=== PATIENT | male | born 1975 | race Caucasian/White ===

== ENCOUNTER 2021-02-24 02:17 | Inpatient (IN) | payer BC ==
[~2021-02-24] VITALS: Ht 188 cm; Wt 163.0 kg
[2021-02-24 02:56] LABS: Hemoglobin 16.4 g/dL (13.5-17.5); Mean Corpuscular Hemoglobin 34.9 pg (28.0-32.0); Mean Corpuscular Hgb Conc. 34.8 g/dL (32.0-36.0); Monocytes # (auto) 1.1 10 ^3/uL (0-1.3); Monocytes % (auto) 16.2 % (0.0-12.0); Nucleated Red Blood Cells % 0.1 %
[2021-02-24 02:58] LABS: Basophils # (auto) 0 10 ^3/uL (0-0.2); Basophils % (auto) 0.5 % (0.0-2.0); Eosinophils # (auto) 0 10 ^3/uL (0-0.8); Eosinophils % (auto) 0.7 % (0.0-7.0); Hematocrit 47.1 % (41.0-53.0); Lymphocytes # (auto) 1.5 10 ^3/uL (0.4-5.4); Lymphocytes % (auto) 21.7 % (10.0-50.0); Mean Corpuscular Volume 100.2 fL (80.0-100.0); Neutrophils # (auto) 4.2 10 ^3/uL (1.6-8.6); Neutrophils % (auto) 60.9 % (37.0-80.0); Platelet Count (auto) 65 10^3/uL (140-450); Red Cell Distribution Width 16.4 % (11.8-14.3); White Blood Cell 6.9 10^3/uL (4.4-10.8)
[2021-02-24 03:11] LABS: INR 1.57 (0.9-1.15); Partial Thromboplastin Time 34.2 sec (23.0-31.2)
[2021-02-24 03:17] LABS: Albumin 2.4 g/dL (3.4-5.0); Magnesium 1.4 mg/dL (1.6-2.6); Potassium 3.2 mmol/L (3.5-5.1)
[2021-02-24 03:20] LABS: Bilirubin, Total 11.4 mg/dL (0.2-1.0); Total Protein 7.3 g/dL (6.4-8.2)
[2021-02-24] MEDS ORDERED: OCTREOTIDE ACETATE 100 MCG in SODIUM CHL 0.9% 50 ML IV ONE (03:30)
[2021-02-24] MEDS ORDERED: SODIUM CHLORIDE 0.9% 1,000 ML IV ONE ×3 (04:00→05:30)
[2021-02-24] MEDS ORDERED: POTASSIUM CHL 20MEQ/100ML 100 ML IV ONE ×2 (04:00→05:30)
[2021-02-24] MEDS ORDERED: MORPHINE SULF INJ 2 MG/ML SYRINGE 1ML IV ONE (04:00)
[2021-02-24] MEDS ORDERED: ONDANSETRON HCL 4 MG/2 ML VIAL IV ONE (04:00)
[2021-02-24] MEDS ORDERED: SODIUM CHLORIDE 0.9% 500 ML IV ONE (04:00)
[2021-02-24 04:02] LABS: Lipase 117 U/L (73-393)
[2021-02-24] MEDS ORDERED: OCTREOTIDE ACETATE 500 MCG/ML VL ONE (04:32)
[2021-02-24] MEDS ORDERED: OCTREOTIDE ACETATE 100 MCG/ML VL ONE (04:32)
[2021-02-24 04:44] LABS: Lactic Acid w/Reflex 3.2 mmol/L (0.4-2.0)
[2021-02-24] MEDS ORDERED: VANCOMYCIN PER PHARMACY 0 MG IV SCH (05:15)
[2021-02-24] MEDS ORDERED: PIPERACILLIN-TAZOB 3.375GM 100 ML IV ONE (05:15)
[2021-02-24] MEDS: OCTREOTIDE ACETATE 500 MCG in SODIUM CHL 0.9% 99 ML IV SCH ×3 (05:29→23:42)
[2021-02-24] MEDS ORDERED: PANTOPRAZOLE 40mg/50ML NS AE 50 ML IV SCH (06:30)
[2021-02-24] MEDS ORDERED: MORPHINE SULF INJ 2 MG/ML SYRINGE 1ML IV PRN (06:30)
[2021-02-24] MEDS ORDERED: SODIUM CHLORIDE 0.9% 1,000 ML IV SCH (06:30)
[2021-02-24] MEDS ORDERED: NITROGLYCERIN 0.4 MG SL TAB SL PRN (06:30)
[2021-02-24] MEDS ORDERED: ONDANSETRON HCL 4 MG/2 ML VIAL IV PRN (06:30)
[2021-02-24 07:00] LABS: Hemoglobin 15.9 g/dL (13.5-17.5)
[2021-02-24 07:01] LABS: Hematocrit 45.8 % (41.0-53.0)
[2021-02-24] MEDS ORDERED: VANCOMYCIN 1GM/250ML 250 ML IV ONE (08:00)
[2021-02-24] MEDS: MAGNESIUM SULFATE 1GM/100ML 100 ML IV SCH ×4 (08:42→18:42)
[2021-02-24] MEDS: SODIUM CHLORIDE 0.9% 1,000 ML IV SCH ×3 (08:42→20:40)
[2021-02-24 11:14] VITALS: BP 122/67
[2021-02-24] MEDS ORDERED: FOLIC ACID 1 MG, MULTIPLE VITAMIN 10 ML, MAGNESIUM SULF SDV 50% 8 MEQ, THIAMINE INJ 100... INJ SCH ×5 (12:00)
[2021-02-24 12:36] LABS: Magnesium 1.4 mg/dL (1.6-2.6)
[2021-02-24 12:47] VITALS: BP 119/70
[2021-02-24] MEDS ORDERED: HYDR25TA5 PO (13:51)
[2021-02-24] MEDS: GABAPENTIN 300 MG CAP PO SCH ×2 (15:43→21:52)
[2021-02-24 17:00] VITALS: BP 140/81
[2021-02-24 18:04] VITALS: BP 140/81
[2021-02-24 20:00] VITALS: BP 127/71
[2021-02-24] MEDS ORDERED: ALBUTEROL SULF HFA 90MCG INH 200DOSE IN PRN (21:15)
[2021-02-24] MEDS ORDERED: ALBUTEROL SULF 2.5 MG/0.5ML(0.5%) NEB SOLN NEB PRN (21:30)
[2021-02-24] MEDS: PANTOPRAZOLE 40 MG/10 ML VIAL INJ IV SCH (21:52)
[2021-02-24] MEDS: ASCORBIC ACID 500 MG TAB PO SCH (21:52)
[2021-02-24 22:00] VITALS: BP 127/71
[2021-02-24] MEDS ORDERED: ALBUTEROL SULF HFA 90MCG INH 200DOSE IN SCH (22:00)
[2021-02-25 05:04] VITALS: BP 105/64
[2021-02-25] MEDS: GABAPENTIN 300 MG CAP PO SCH ×2 (06:00→14:15)
[2021-02-25 07:14] LABS: Calcium 7.1 mg/dL (8.5-10.1); Potassium 3.7 mmol/L (3.5-5.1)
[2021-02-25 07:21] LABS: BUN/Creatinine Ratio 15.6; Bilirubin, Total 10.7 mg/dL (0.2-1.0); Total Protein 5.6 g/dL (6.4-8.2)
[2021-02-25 07:45] VITALS: BP 105/67
[2021-02-25 07:48] LABS: Basophils # (auto) 0 10 ^3/uL (0-0.2); Eosinophils # (auto) 0.1 10 ^3/uL (0-0.8); Hemoglobin 13.5 g/dL (13.5-17.5); Lymphocytes # (auto) 1.6 10 ^3/uL (0.4-5.4); Monocytes # (auto) 0.7 10 ^3/uL (0-1.3); Neutrophils # (auto) 2.3 10 ^3/uL (1.6-8.6); White Blood Cell 4.8 10^3/uL (4.4-10.8)
[2021-02-25 07:50] LABS: Basophils % (auto) 0.9 % (0.0-2.0); Eosinophils % (auto) 2.1 % (0.0-7.0); Hematocrit 39.1 % (41.0-53.0); Lymphocytes % (auto) 33.8 % (10.0-50.0); Mean Corpuscular Hemoglobin 35.2 pg (28.0-32.0); Mean Corpuscular Hgb Conc. 34.6 g/dL (32.0-36.0); Mean Corpuscular Volume 101.8 fL (80.0-100.0); Monocytes % (auto) 14.9 % (0.0-12.0); Neutrophils % (auto) 48.3 % (37.0-80.0); Nucleated Red Blood Cells % 0.5 %; Platelet Count (auto) 44 10^3/uL (140-450); Red Blood Cells 3.85 10^6/uL (4.5-5.90); Red Cell Distribution Width 16.9 % (11.8-14.3)
[2021-02-25] MEDS ORDERED: LIDOCAINE VISCOUS 2% 15ML UD ONE (08:28)
[2021-02-25] MEDS ORDERED: diphenhdrAMINE HCL 50 MG/1 ML VL ONE (08:29)
[2021-02-25] MEDS: ASCORBIC ACID 500 MG TAB PO SCH (08:57)
[2021-02-25] MEDS: PANTOPRAZOLE 40 MG/10 ML VIAL INJ IV SCH (08:57)
[2021-02-25] MEDS: OCTREOTIDE ACETATE 500 MCG in SODIUM CHL 0.9% 99 ML IV SCH (08:57)
[2021-02-25 09:00] VITALS: BP 105/67
[2021-02-25] MEDS: SODIUM CHLORIDE 0.9% 1,000 ML IV SCH (09:05)
[2021-02-25] MEDS: fentaNYL CITRATE 100 MCG/2 ML VL ONE ×2 (09:35→09:38)
[2021-02-25] MEDS: MIDAZOLAM HCL 5 MG/ML-1ML VIAL ONE ×2 (09:35→09:38)
[2021-02-25] MEDS ORDERED: THIAMINE HCL 100 MG TAB PO SCH (10:00)
[2021-02-25] MEDS ORDERED: ZINC SULFATE 220mg CAP or TAB PO SCH (10:00)
[2021-02-25] MEDS ORDERED: PANTOPRAZOLE 40 MG TAB PO SCH (10:00)
[2021-02-25] MEDS ORDERED: CHOLECALCIFEROL (VITD3) 2,000 UNIT CAP/TAB PO SCH (10:00)
[2021-02-25] MEDS ORDERED: FOLIC ACID 1 MG TAB PO SCH (10:00)
[2021-02-25 13:00] VITALS: BP 100/60
[2021-02-25] MEDS ORDERED: THIA100T10 PO (16:34)
[2021-02-25] MEDS ORDERED: CHOL1CAP47 PO (16:34)
[2021-02-25] MEDS ORDERED: PANT40T PO (16:34)
[2021-02-25] MEDS ORDERED: FOLI1TAB6 PO (16:34)
[2021-02-25] MEDS ORDERED: ZINC220C8 PO (16:34)
[2021-02-25] MEDS ORDERED: ASCO500T11 PO (16:34)
[2021-02-25] MEDS ORDERED: GABA300C10 PO (16:34)
[2021-02-25] MEDS ORDERED: POTA10TA32 PO (16:35)
[2021-02-25 16:44] VITALS: BP 119/71
[2021-02-25 17:02] VITALS: BP 119/71
== END 2021-02-25 18:20 | disposition home or self-care (01) | DRG 432 ==
LOC: ER 02:21 → TELE 06:20 → TELE-WESTW 09:51 → TELE-EAST 14:05
PROVIDERS: ADMIT Nurse Practitioner; ATTEND Internal Medicine
PROC: 0DJ08ZZ Inspection of Upper Intestinal Tract, Via Natural or Artificial Opening Endoscopic (ICD-10-PCS; principal; 2021-02-25 09:26)
DX: K70.30 Alcoholic cirrhosis of liver without ascites (principal); K29.71 Gastritis, unspecified, with bleeding; U07.1 COVID-19; J12.82 Pneumonia due to coronavirus disease 2019; I85.11 Secondary esophageal varices with bleeding; K20.91 Esophagitis, unspecified with bleeding; D68.9 Coagulation defect, unspecified; E87.1 Hypo-osmolality and hyponatremia; K76.6 Portal hypertension; Z68.41 Body mass index [BMI] 40.0-44.9, adult; E66.01 Morbid (severe) obesity due to excess calories; K31.89 Other diseases of stomach and duodenum; E83.42 Hypomagnesemia; E87.6 Hypokalemia; I10 Essential (primary) hypertension; F10.10 Alcohol abuse, uncomplicated; Z71.41 Alcohol abuse counseling and surveillance of alcoholic
CPT/HCPCS: 36415; 74176; 80053; 80320; 83605; 83690; 83735; 83880; 84132; 84484; 85014; 85018; 85025; 85610; 85730; 86850; 86900; 86901; 87426; 93005; 96365; 96367; 96375; 99291; C9113; G0378; J2250; J2405; J2543; J3480

== ENCOUNTER 2021-03-14 10:16 | Inpatient (IN) | payer BC ==
[~2021-03-14] VITALS: Ht 188 cm; Wt 165.5 kg
[~2021-03-14 10:16] MED LIST: ASCO500T11 PO; CHOL1CAP47 PO; FOLI1TAB6 PO; GABA300C10 PO; HYDR25TA5 PO; PANT40T PO; POTA10TA32 PO; THIA100T10 PO; ZINC220C8 PO
[2021-03-14 11:21] LABS: Eosinophils # (auto) 0 10 ^3/uL (0-0.8); Lymphocytes # (auto) 0.3 10 ^3/uL (0.4-5.4); Monocytes # (auto) 0.7 10 ^3/uL (0-1.3); Neutrophils # (auto) 6.1 10 ^3/uL (1.6-8.6); Neutrophils % (auto) 84.4 % (37.0-80.0); Nucleated Red Blood Cells % 0.1 %; White Blood Cell 7.2 10^3/uL (4.4-10.8)
[2021-03-14 11:23] LABS: Basophils # (auto) 0 10 ^3/uL (0-0.2); Basophils % (auto) 0.4 % (0.0-2.0); Eosinophils % (auto) 0.3 % (0.0-7.0); Hematocrit 40.8 % (41.0-53.0); Hemoglobin 14.1 g/dL (13.5-17.5); Lymphocytes % (auto) 4.8 % (10.0-50.0); Mean Corpuscular Hemoglobin 34.4 pg (28.0-32.0); Mean Corpuscular Hgb Conc. 34.6 g/dL (32.0-36.0); Mean Corpuscular Volume 99.3 fL (80.0-100.0); Monocytes % (auto) 10.1 % (0.0-12.0); Red Blood Cells 4.11 10^6/uL (4.5-5.90); Red Cell Distribution Width 15.9 % (11.8-14.3)
[2021-03-14 11:49] LABS: Lactic Acid w/Reflex 2.9 mmol/L (0.4-2.0)
[2021-03-14 12:00] LABS: Chloride 104 mmol/L (98-107); Potassium 3.5 mmol/L (3.5-5.1); Sodium 138 mmol/L (136-145)
[2021-03-14 12:08] LABS: Alanine Aminotransferase 45 U/L (16-61); Alkaline Phosphatase 144 U/L (45-117); Anion Gap 7 (5-15); Aspartate Aminotransferase 52 U/L (15-37); BUN/Creatinine Ratio 11.5; Bilirubin, Total 6.7 mg/dL (0.2-1.0); Blood Alcohol < 3.0 mg/dL (0-5); Blood Urea Nitrogen 10 mg/dL (7-18); Calcium 7.8 mg/dL (8.5-10.1); Carbon Dioxide 27 mmol/L (21-32); GFR African American 123 mL/min; GFR Non-African American 101 mL/min; Glucose 277 mg/dL (74-106); Total Protein 6.1 g/dL (6.4-8.2)
[2021-03-14] MEDS ORDERED: MORPHINE SULFATE INJECTION 2 MG/ML SYRG IV PRN ×3 (14:30→17:45)
[2021-03-14] MEDS ORDERED: NITROGLYCERIN 0.4 MG SL TAB SL PRN ×2 (14:30→17:45)
[2021-03-14] MEDS ORDERED: LACTULOSE 20Gm/30ML SOLN PO ONE (16:00)
[2021-03-14 17:15] VITALS: BP 112/61
[2021-03-14] MEDS ORDERED: ALBUMIN 25% 100 ML IV ONE (17:45)
[2021-03-14] MEDS ORDERED: PANTOPRAZOLE 40 MG/10 ML VIAL INJ IV ONE (17:45)
[2021-03-14] MEDS ORDERED: ONDANSETRON HCL 4 MG/2 ML VIAL IV PRN (17:45)
[2021-03-14] MEDS ORDERED: ALUM & MAG HYDROX-SIMETH LIQ(MAALOX) 30 ML PO PRN (17:45)
[2021-03-14] MEDS ORDERED: cefTRIAXone 1GM/50ML D5W 50 ML IV ONE (17:45)
[2021-03-14] MEDS ORDERED: DOCUSATE SOD 100 MG CAP PO PRN (17:45)
[2021-03-14] MEDS ORDERED: LACTULOSE 20Gm/30ML SOLN PO PRN (17:45)
[2021-03-14] MEDS ORDERED: LORazepam 0.5 MG TAB PO PRN (17:45)
[2021-03-14] MEDS: LACTULOSE 20Gm/30ML SOLN PO SCH ×2 (18:23→22:58)
[2021-03-14] MEDS ORDERED: hydrALAZINE HCL 20 MG/ML VL IV PRN (18:30)
[2021-03-14] MEDS ORDERED: DEXTROSE (50%) 50ML SYRG IV PRN (18:30)
[2021-03-14] MEDS: ALBUMIN 25% 50 ML IV SCH (18:52)
[2021-03-14] MEDS ORDERED: CHOL20007 OR (19:12)
[2021-03-14 19:29] LABS: Alcohol, Urine < 3.0 mg/dL (0-10); Amphetamine Screen, Urine NEGATIVE (NEGATIVE); Barbiturate Scree,Urine NEGATIVE (NEGATIVE); Benzodiazephine Screen, Urine NEGATIVE (NEGATIVE); Cannabinoid Screen, Urine POSITIVE (NEGATIVE); Cocaine Screen, Urine NEGATIVE (NEGATIVE); Phencyclidine Screen, Urine NEGATIVE (NEGATIVE)
[2021-03-14 19:38] LABS: Opiate Scree,Urine NEGATIVE (NEGATIVE)
[2021-03-14 19:41] LABS: Urine Bacteria FEW /hpf (None Seen); Urine Blood Negative /uL (Negative); Urine Hyaline Cast MANY /lpf (0 - 2); Urine Mucus MODERATE (None Seen); Urine Specific Gravity 1.029 (1.001-1.035); Urine WBC 55 /hpf (0 - 3)
[2021-03-14 20:18] LABS: Cholesterol 143 mg/dL (< 200)
[2021-03-14 20:22] LABS: HDL Cholesterol 20 mg/dL (40-59); LDL Cholesterol 112 mg/dL (< 100); Triglycerides 102 mg/dL (< 150)
[2021-03-14 22:00] VITALS: BP 124/70
[2021-03-14] MEDS: SODIUM CHLOR 0.9% PF (SALINE LOCK) 10ML VIAL/SYR IV SCH (22:00)
[2021-03-14] MEDS: ACCU-CHEK COMFORT CURVE STRIP VI SCH (22:00)
[2021-03-14] MEDS ORDERED: InsuLIN REG 1unit/0.01ml Soln (100units/ml) SC SCH (22:00)
[2021-03-14] MEDS: rifAXIMin 550 MG TAB PO SCH (22:58)
[2021-03-14] MEDS: PROPRANOLOL HCL 20 MG TAB PO SCH (22:59)
[2021-03-15] MEDS: LACTULOSE 20Gm/30ML SOLN PO SCH ×4 (01:46→14:06)
[2021-03-15] MEDS: ALBUMIN 25% 50 ML IV SCH ×2 (01:47→10:33)
[2021-03-15 05:29] VITALS: BP 99/50
[2021-03-15] MEDS: SODIUM CHLOR 0.9% PF (SALINE LOCK) 10ML VIAL/SYR IV SCH ×2 (05:35→14:06)
[2021-03-15] MEDS: ACCU-CHEK COMFORT CURVE STRIP VI SCH ×3 (06:35→17:00)
[2021-03-15] MEDS: InsuLIN REG 1unit/0.01ml Soln (100units/ml) SC SCH ×3 (06:35→17:00)
[2021-03-15 07:05] LABS: Basophils # (auto) 0 10 ^3/uL (0-0.2); Hemoglobin 12.7 g/dL (13.5-17.5); Monocytes # (auto) 0.6 10 ^3/uL (0-1.3); Monocytes % (auto) 9.5 % (0.0-12.0); Nucleated Red Blood Cells % 0.1 %
[2021-03-15 07:09] LABS: Basophils % (auto) 0.5 % (0.0-2.0); Eosinophils # (auto) 0.1 10 ^3/uL (0-0.8); Eosinophils % (auto) 2.2 % (0.0-7.0); Hematocrit 36.2 % (41.0-53.0); Lymphocytes # (auto) 1.7 10 ^3/uL (0.4-5.4); Lymphocytes % (auto) 26.3 % (10.0-50.0); Mean Corpuscular Hemoglobin 34.9 pg (28.0-32.0); Mean Corpuscular Hgb Conc. 35.2 g/dL (32.0-36.0); Mean Corpuscular Volume 99.2 fL (80.0-100.0); Neutrophils % (auto) 61.5 % (37.0-80.0); Red Blood Cells 3.64 10^6/uL (4.5-5.90); Red Cell Distribution Width 15.6 % (11.8-14.3); White Blood Cell 6.5 10^3/uL (4.4-10.8)
[2021-03-15 07:15] LABS: INR 1.81 (0.9-1.15); Partial Thromboplastin Time 42.1 sec (23.0-31.2)
[2021-03-15 07:25] LABS: Calcium 7.9 mg/dL (8.5-10.1); Magnesium 2.1 mg/dL (1.6-2.6); Potassium 3.2 mmol/L (3.5-5.1)
[2021-03-15 07:28] LABS: BUN/Creatinine Ratio 14.5; Bilirubin, Total 7.4 mg/dL (0.2-1.0); Phosphorus 3.4 mg/dL (2.5-4.90); Total Protein 5.7 g/dL (6.4-8.2)
[2021-03-15 08:54] VITALS: BP 101/55
[2021-03-15] MEDS ORDERED: cefTRIAXone 1GM/50ML D5W 50 ML IV SCH (09:00)
[2021-03-15] MEDS: rifAXIMin 550 MG TAB PO SCH (09:43)
[2021-03-15] MEDS: PROPRANOLOL HCL 20 MG TAB PO SCH (09:43)
[2021-03-15] MEDS ORDERED: PANTOPRAZOLE 40 MG/10 ML VIAL INJ IV SCH (10:00)
[2021-03-15 12:47] VITALS: BP 114/65
[2021-03-15] MEDS ORDERED: POTA10TA51 PO (14:18)
[2021-03-15] MEDS ORDERED: CIPR500T4 PO (14:18)
[2021-03-15] MEDS ORDERED: LACT10SO3 PO (14:18)
[2021-03-15] MEDS ORDERED: POTASSIUM CHL 20 Meq TABLET PO ONE (14:30)
[2021-03-15 16:03] VITALS: BP 114/65
[2021-03-15 17:00] VITALS: BP 112/70
== END 2021-03-15 17:46 | disposition home or self-care (01) | DRG 442 ==
LOC: EDBD 10:16 → ER 10:16 → TELE 14:17 → TELE-WESTW 17:20
PROVIDERS: ADMIT Hospitalist; ATTEND Hospitalist
DX: K72.90 Hepatic failure, unspecified without coma (principal); E66.2 Morbid (severe) obesity with alveolar hypoventilation; E87.1 Hypo-osmolality and hyponatremia; K76.6 Portal hypertension; N39.0 Urinary tract infection, site not specified; Z68.41 Body mass index [BMI] 40.0-44.9, adult; I85.00 Esophageal varices without bleeding; K70.30 Alcoholic cirrhosis of liver without ascites; Z20.822 Contact with and (suspected) exposure to COVID-19; E78.00 Pure hypercholesterolemia, unspecified; E83.42 Hypomagnesemia; E87.6 Hypokalemia; F10.10 Alcohol abuse, uncomplicated; G47.33 Obstructive sleep apnea (adult) (pediatric); I10 Essential (primary) hypertension; K21.00 Gastro-esophageal reflux disease with esophagitis, without bleeding; K29.70 Gastritis, unspecified, without bleeding; K31.89 Other diseases of stomach and duodenum; Z59.0 Homelessness; Z80.1 Family history of malignant neoplasm of trachea, bronchus and lung; Z83.3 Family history of diabetes mellitus; Z85.118 Personal history of other malignant neoplasm of bronchus and lung
CPT/HCPCS: 36415; 70450; 76700; 80053; 80061; 80307; 80320; 81001; 82140; 82306; 82962; 83036; 83605; 83735; 84100; 84443; 84484; 85025; 85610; 85730; 87040; 87081; 87086; 87426; 93005; 93306; 96365; 96375; C9113; G0378; J0696; J1815

== ENCOUNTER 2021-11-07 14:14 | Inpatient (IN) | payer BC ==
[~2021-11-07] VITALS: Ht 188 cm; Wt 168.3 kg
[~2021-11-07 14:14] MED LIST changes: +CHOL20007 OR; +CIPR500T4 PO; +LACT10SO3 PO; +POTA10TA51 PO
[2021-11-07 15:30] LABS: Mean Corpuscular Hemoglobin 37.2 pg (28.0-32.0)
[2021-11-07 15:32] LABS: Hematocrit 38.9 % (41.0-53.0); Hemoglobin 13.5 g/dL (13.5-17.5); Mean Corpuscular Hgb Conc. 34.7 g/dL (32.0-36.0); Mean Corpuscular Volume 107.2 fL (80.0-100.0); Red Blood Cells 3.63 10^6/uL (4.5-5.90); Red Cell Distribution Width 17.5 % (11.8-14.3)
[2021-11-07 15:46] LABS: Albumin 1.6 g/dL (3.4-5.0); Potassium 3.5 mmol/L (3.5-5.1)
[2021-11-07 15:51] LABS: BUN/Creatinine Ratio 8.9; Bilirubin, Total 15.5 mg/dL (0.2-1.0); Total Protein 6.8 g/dL (6.4-8.2)
[2021-11-07 16:08] LABS: Magnesium 1.5 mg/dL (1.6-2.6)
[2021-11-07 16:15] LABS: Basophils % (manual) 0 (0.0-2.0); Blast Cells 0; Eosinophils % (manual) 0 (0-7); Metamyelocytes % 0; Monocytes % (manual) 0 (0-12); Myelocytes % 0; Promyelocytes % 0; Reactive Lymphocytes 0
[2021-11-07 16:42] LABS: INR 2.01 (0.9-1.15); Partial Thromboplastin Time 37.9 sec (23.6-33.0)
[2021-11-07 18:47] LABS: Band Neutrophils % (manual) 4; Lymphocytes % (manual) 11 (10.0-50.0)
[2021-11-08] MEDS ORDERED: ONDANSETRON HCL 4 MG/2 ML VIAL IV PRN (02:45)
[2021-11-08] MEDS ORDERED: POTASSIUM CHL 20 Meq TABLET PO ONE (02:45)
[2021-11-08] MEDS ORDERED: FUROSEMIDE 40 MG/4 ML VIAL IV ONE (02:45)
[2021-11-08] MEDS: ALBUMIN 25% 50 ML IV SCH ×3 (04:29→18:07)
[2021-11-08 06:22] VITALS: BP 137/91
[2021-11-08] MEDS: MAGNESIUM SULFATE 1GM/100ML 100 ML IV SCH ×4 (06:48→13:30)
[2021-11-08 07:27] LABS: Urine Bacteria NONE SEEN /hpf (None Seen); Urine Blood 2+ /uL (Negative); Urine Mucus FEW (None Seen); Urine Specific Gravity 1.019 (1.001-1.035); Urine WBC 10 /hpf (0 - 3)
[2021-11-08 08:00] VITALS: BP 121/79
[2021-11-08 09:00] VITALS: BP 121/79
[2021-11-08] MEDS ORDERED: MAGNESIUM SULFATE 1GM/100ML 100 ML IV SCH (09:45)
[2021-11-08] MEDS: rifAXIMin 550 MG TAB PO SCH ×2 (09:47→21:56)
[2021-11-08] MEDS: LACTULOSE 20Gm/30ML SOLN PO SCH (09:47)
[2021-11-08] MEDS: HCTZ 25 MG TAB PO SCH ×2 (09:48→10:00)
[2021-11-08 12:17] VITALS: BP 141/66
[2021-11-08] MEDS ORDERED: phytonadione 10 MG in SODIUM CHL 0.9% 50 ML IV ONE (12:30)
[2021-11-08 17:05] VITALS: BP 120/62
[2021-11-08] MEDS: FUROSEMIDE 40 MG/4 ML VIAL IV SCH (17:25)
[2021-11-08] MEDS ORDERED: FUROSEMIDE 40 MG TAB PO SCH (18:00)
[2021-11-08 22:00] VITALS: BP 122/68
[2021-11-08] MEDS ORDERED: methylPREDNISolone SOD SUCC 40 MG/ML VL IV SCH (22:00)
[2021-11-09] MEDS: FUROSEMIDE 40 MG/4 ML VIAL IV SCH ×2 (06:25→17:33)
[2021-11-09 07:41] LABS: Hemoglobin 11.9 g/dL (13.5-17.5)
[2021-11-09 07:43] LABS: Hematocrit 34.3 % (41.0-53.0); Mean Corpuscular Hemoglobin 37.1 pg (28.0-32.0); Mean Corpuscular Hgb Conc. 34.7 g/dL (32.0-36.0); Red Cell Distribution Width 16.7 % (11.8-14.3); White Blood Cell 3.1 10^3/uL (4.4-10.8)
[2021-11-09 07:46] LABS: Basophils % (manual) 0 (0.0-2.0); Blast Cells 0; Metamyelocytes % 0; Myelocytes % 0; Promyelocytes % 0; Reactive Lymphocytes 0
[2021-11-09 07:58] LABS: Albumin 1.8 g/dL (3.4-5.0); Calcium 7.6 mg/dL (8.5-10.1)
[2021-11-09 08:04] LABS: BUN/Creatinine Ratio 11.1; Bilirubin, Total 14.3 mg/dL (0.2-1.0)
[2021-11-09 08:16] VITALS: BP 136/71
[2021-11-09 08:25] LABS: Potassium 2.7 mmol/L (3.5-5.1)
[2021-11-09 08:42] VITALS: BP 116/72
[2021-11-09] MEDS ORDERED: POTASSIUM CHL 20 Meq TABLET PO ONE (09:15)
[2021-11-09 09:48] LABS: Band Neutrophils % (manual) 1; Eosinophils % (manual) 2 (0-7); Lymphocytes % (manual) 25 (10.0-50.0); Monocytes % (manual) 25 (0-12)
[2021-11-09] MEDS ORDERED: SPIRONOLACTONE 25 MG TAB PO SCH ×2 (10:00)
[2021-11-09] MEDS: POTASSIUM CHL 20 Meq TABLET PO SCH ×2 (10:00→21:49)
[2021-11-09] MEDS: LACTULOSE 20Gm/30ML SOLN PO SCH (10:15)
[2021-11-09] MEDS: THIAMINE HCL 100 MG TAB PO SCH (10:17)
[2021-11-09] MEDS: PANTOPRAZOLE 40 MG TAB PO SCH (10:17)
[2021-11-09] MEDS: FOLIC ACID 1 MG TAB PO SCH (10:17)
[2021-11-09] MEDS: rifAXIMin 550 MG TAB PO SCH ×2 (10:18→21:49)
[2021-11-09 13:14] VITALS: BP 112/67
[2021-11-09 17:21] VITALS: BP 110/64
[2021-11-09 22:00] VITALS: BP 116/67
[2021-11-10 05:00] VITALS: BP 116/68
[2021-11-10] MEDS: FUROSEMIDE 40 MG/4 ML VIAL IV SCH (06:05)
[2021-11-10 08:24] LABS: Albumin 1.6 g/dL (3.4-5.0); Calcium 7.5 mg/dL (8.5-10.1)
[2021-11-10 08:27] LABS: BUN/Creatinine Ratio 8.2; Bilirubin, Total 13.9 mg/dL (0.2-1.0)
[2021-11-10 08:34] LABS: Potassium 2.8 mmol/L (3.5-5.1)
[2021-11-10 09:08] VITALS: BP 121/68
[2021-11-10] MEDS: THIAMINE HCL 100 MG TAB PO SCH (09:37)
[2021-11-10] MEDS: PANTOPRAZOLE 40 MG TAB PO SCH (09:38)
[2021-11-10] MEDS: FOLIC ACID 1 MG TAB PO SCH (09:38)
[2021-11-10] MEDS: rifAXIMin 550 MG TAB PO SCH (09:38)
[2021-11-10] MEDS: POTASSIUM CHL 20 Meq TABLET PO SCH (09:39)
[2021-11-10] MEDS: LACTULOSE 20Gm/30ML SOLN PO SCH (09:39)
[2021-11-10] MEDS ORDERED: SPIRONOLACTONE 25 MG TAB PO SCH (10:00)
[2021-11-10 11:38] LABS: Hepatitis B Surface Antibody Negative (Negative)
[2021-11-10 12:10] LABS: Hepatitis A Total Antibody Negative (Negative)
[2021-11-10 13:13] VITALS: BP 112/67
[2021-11-10 14:26] LABS: Hepatitis C Antibody Negative (Negative)
[2021-11-10] MEDS ORDERED: POTASSIUM CHL 20 Meq TABLET PO ONE (14:30)
[2021-11-10] MEDS ORDERED: PANT40TA2 PO (15:17)
[2021-11-10] MEDS ORDERED: RIFA550T PO (15:17)
[2021-11-10] MEDS ORDERED: FURO40TA4 PO (15:17)
[2021-11-10] MEDS ORDERED: SPIR25TA PO (15:17)
[2021-11-10] MEDS ORDERED: POTA8TAB15 PO (15:17)
[2021-11-10 15:57] VITALS: BP 112/67
[2021-11-10 17:02] VITALS: BP 122/77
== END 2021-11-10 18:25 | disposition home or self-care (01) | DRG 433 ==
LOC: ER 14:14 → OVERFLOW 11-08 02:39 → CENTRAL 11-08 04:54
PROVIDERS: ADMIT Nurse Practitioner; ATTEND Hospitalist
DX: K70.31 Alcoholic cirrhosis of liver with ascites (principal); D61.818 Other pancytopenia; D68.9 Coagulation defect, unspecified; K76.6 Portal hypertension; Z68.42 Body mass index [BMI] 45.0-49.9, adult; K80.20 Calculus of gallbladder without cholecystitis without obstruction; E80.6 Other disorders of bilirubin metabolism; F10.20 Alcohol dependence, uncomplicated; I50.9 Heart failure, unspecified; I11.0 Hypertensive heart disease with heart failure; E66.9 Obesity, unspecified; Z20.822 Contact with and (suspected) exposure to COVID-19; K21.00 Gastro-esophageal reflux disease with esophagitis, without bleeding; Z83.3 Family history of diabetes mellitus; Z80.1 Family history of malignant neoplasm of trachea, bronchus and lung
CPT/HCPCS: 36415; 74176; 80053; 81001; 82140; 83690; 83735; 83880; 84484; 85007; 85027; 85610; 85730; 86704; 86706; 86708; 86803; 87340; 87426; 93306; 93970; 96374; G0378; J3430

== ENCOUNTER 2022-07-24 12:49 | Emergency (ER) | payer BC ==
[~2022-07-24] VITALS: Ht 185.4 cm; Wt 159.1 kg
[~2022-07-24 12:49] MED LIST changes: -ASCO500T11 PO; -CHOL20007 OR; -CIPR500T4 PO; -FOLI1TAB6 PO; +FURO40TA4 PO; -GABA300C10 PO; -HYDR25TA5 PO; -LACT10SO3 PO; -PANT40T PO; +PANT40TA2 PO; -POTA10TA32 PO; -POTA10TA51 PO; +POTA8TAB15 PO; +RIFA550T PO; +SPIR25TA PO; -THIA100T10 PO; -ZINC220C8 PO
[2022-07-24 13:20] VITALS: BP 123/77
== END 2022-07-24 13:40 | disposition left against medical advice (07) ==
LOC: ER 12:49
DX: M79.89 Other specified soft tissue disorders (principal); Z53.21 Procedure and treatment not carried out due to patient leaving prior to being seen by health care provider

== ENCOUNTER 2022-07-30 12:02 | Inpatient (IN) | payer BC ==
[~2022-07-30] VITALS: Ht 188 cm; Wt 132.5 kg
[2022-07-30] MEDS ORDERED: FUROSEMIDE 100 MG/10ML VIAL IV ONE (12:45)
[2022-07-30 13:46] LABS: Albumin 1.8 g/dL (3.4-5.0); BUN/Creatinine Ratio 15.4; Calcium 8.2 mg/dL (8.5-10.1); Potassium 4.3 mmol/L (3.5-5.1)
[2022-07-30 13:49] LABS: Bilirubin, Total 8.1 mg/dL (0.2-1.0); Total Protein 6.7 g/dL (6.4-8.2)
[2022-07-30 14:23] LABS: Basophils # (auto) 0 10 ^3/uL (0-0.2); Basophils % (auto) 0.4 % (0.0-2.0); Eosinophils # (auto) 0.1 10 ^3/uL (0-0.8); Eosinophils % (auto) 1.2 % (0.0-7.0); Hematocrit 33.1 % (41.0-53.0); Hemoglobin 11.1 g/dL (13.5-17.5); Lymphocytes # (auto) 0.8 10 ^3/uL (0.4-5.4); Lymphocytes % (auto) 10.4 % (10.0-50.0); Mean Corpuscular Hemoglobin 32.4 pg (28.0-32.0); Mean Corpuscular Hgb Conc. 33.5 g/dL (32.0-36.0); Mean Corpuscular Volume 96.6 fL (80.0-100.0); Monocytes # (auto) 1.3 10 ^3/uL (0-1.3); Monocytes % (auto) 17.4 % (0.0-12.0); Neutrophils # (auto) 5.4 10 ^3/uL (1.6-8.6); Neutrophils % (auto) 70.6 % (37.0-80.0); Nucleated Red Blood Cells % 0.1 %; Red Blood Cells 3.42 10^6/uL (4.5-5.90); Red Cell Distribution Width 17.3 % (11.8-14.3); White Blood Cell 7.6 10^3/uL (4.4-10.8)
[2022-07-30] MEDS ORDERED: AZITHROMYCIN 500MG/ 250ML 250 ML IV ONE (14:30)
[2022-07-30] MEDS ORDERED: cefTRIAXone 1GM/50ML D5W 50 ML IV ONE (14:30)
[2022-07-30] MEDS ORDERED: MORPHINE SULFATE INJ 2 MG/ml SYRG IV PRN (17:30)
[2022-07-30] MEDS ORDERED: NITROGLYCERIN 0.4 MG SL TAB SL PRN (17:30)
[2022-07-30] MEDS ORDERED: hydrALAZINE HCL 20 MG/ML VL IV PRN (18:00)
[2022-07-30] MEDS ORDERED: ALBUTEROL SULF 2.5 MG/0.5ML(0.5%) NEB SOLN NEB PRN (18:00)
[2022-07-30 18:14] LABS: Cholesterol 73 mg/dL (< 200)
[2022-07-30 18:17] LABS: HDL Cholesterol 18 mg/dL (40-59); LDL Cholesterol 56 mg/dL (< 100); Triglycerides 59 mg/dL (< 150)
[2022-07-30] MEDS: HEPARIN SODIUM (PORCINE) 5000 UNITS/ML 1ML VIAL SC SCH (18:18)
[2022-07-30 21:41] VITALS: BP 140/71
[2022-07-30 21:48] LABS: Urine Bacteria NONE SEEN /hpf (None Seen); Urine Blood Negative /uL (Negative); Urine Hyaline Cast FEW /lpf (0 - 2); Urine Specific Gravity 1.007 (1.001-1.035); Urine WBC 2 /hpf (0 - 3)
[2022-07-30] MEDS: MORPHINE SULFATE INJ 2 MG/ml SYRG IV PRN (23:07)
[2022-07-31] MEDS: HEPARIN SODIUM (PORCINE) 5000 UNITS/ML 1ML VIAL SC SCH ×3 (03:53→18:00)
[2022-07-31 05:28] LABS: Hematocrit 31.9 % (41.0-53.0); Hemoglobin 10.7 g/dL (13.5-17.5); Mean Corpuscular Hemoglobin 32.3 pg (28.0-32.0); Mean Corpuscular Hgb Conc. 33.6 g/dL (32.0-36.0); Mean Corpuscular Volume 96.1 fL (80.0-100.0); Red Blood Cells 3.32 10^6/uL (4.5-5.90); Red Cell Distribution Width 18.1 % (11.8-14.3); White Blood Cell 7.1 10^3/uL (4.4-10.8)
[2022-07-31 05:49] LABS: Calcium 8.2 mg/dL (8.5-10.1); Potassium 4.5 mmol/L (3.5-5.1)
[2022-07-31 05:52] LABS: Albumin 1.8 g/dL (3.4-5.0); BUN/Creatinine Ratio 18.8
[2022-07-31 05:55] LABS: Bilirubin, Total 10.3 mg/dL (0.2-1.0); Total Protein 6.3 g/dL (6.4-8.2)
[2022-07-31 06:30] LABS: Basophils % (manual) 0 (0.0-2.0); Blast Cells 0; Eosinophils % (manual) 0 (0-7); Promyelocytes % 0; Reactive Lymphocytes 0
[2022-07-31 07:52] LABS: Band Neutrophils % (manual) 3; Lymphocytes % (manual) 8 (10.0-50.0)
[2022-07-31 07:53] LABS: Metamyelocytes % 1; Monocytes % (manual) 13 (0-12); Myelocytes % 1
[2022-07-31] MEDS: cefTRIAXone 1GM/50ML D5W 50 ML IV SCH (09:40)
[2022-07-31] MEDS ORDERED: ENOXAPARIN SOD 60 MG/0.6 ML SYRINGE SC SCH (10:00)
[2022-07-31] MEDS: AZITHROMYCIN 500MG/ 250ML 250 ML IV SCH (10:57)
[2022-07-31] MEDS ORDERED: FUROSEMIDE 100 MG/10ML VIAL IV ONE (11:15)
[2022-07-31 11:23] LABS: INR 1.94 (0.9-1.15)
[2022-07-31] MEDS ORDERED: phytonadione 10 MG in SODIUM CHL 0.9% 50 ML IV ONE (12:45)
[2022-07-31] MEDS ORDERED: LIDOCAINE 1% HCL (LOCAL ANESTH.) INJ 20ML MDV ONE (15:36)
[2022-07-31] MEDS ORDERED: LIDOCAINE 1% HCL (LOCAL ANESTH.) INJ 20ML MDV ID ONE (15:45)
[2022-07-31] MEDS ORDERED: MORPHINE SULFATE 4 MG/ML SYR/VIAL IV ONE (16:00)
[2022-07-31] MEDS: FUROSEMIDE 100 MG/10ML VIAL IV SCH (18:19)
[2022-07-31] MEDS ORDERED: MORPHINE SULFATE 4 MG/ML SYR/VIAL ONE (20:56)
[2022-07-31] MEDS: MORPHINE SULFATE INJ 2 MG/ml SYRG IV PRN (20:58)
[2022-07-31 22:00] VITALS: BP 107/66
[2022-07-31] MEDS: METOPROLOL TARTRATE 25 MG TAB PO SCH (22:00)
[2022-07-31 22:33] LABS: INR 1.81 (0.9-1.15)
[2022-07-31 22:43] VITALS: BP 117/94
[2022-07-31 23:00] VITALS: BP 122/69
[2022-07-31 23:45] VITALS: BP 122/69
[2022-07-31 23:51] VITALS: BP 122/69
[2022-08-01] VITALS (23 sets, daily range): BP systolic 95–126; BP diastolic 45–73
[2022-08-01] MEDS: HEPARIN SODIUM (PORCINE) 5000 UNITS/ML 1ML VIAL SC SCH ×2 (01:38→09:53)
[2022-08-01 06:10] LABS: Basophils # (auto) 0.1 10 ^3/uL (0-0.2); Basophils % (auto) 0.7 % (0.0-2.0); Eosinophils # (auto) 0 10 ^3/uL (0-0.8); Eosinophils % (auto) 0.4 % (0.0-7.0); Hematocrit 30.2 % (41.0-53.0); Hemoglobin 10.3 g/dL (13.5-17.5); Lymphocytes # (auto) 0.9 10 ^3/uL (0.4-5.4); Lymphocytes % (auto) 9.5 % (10.0-50.0); Mean Corpuscular Hemoglobin 32.6 pg (28.0-32.0); Mean Corpuscular Hgb Conc. 33.9 g/dL (32.0-36.0); Mean Corpuscular Volume 96.1 fL (80.0-100.0); Monocytes # (auto) 1.2 10 ^3/uL (0-1.3); Monocytes % (auto) 12.5 % (0.0-12.0); Neutrophils # (auto) 7.6 10 ^3/uL (1.6-8.6); Neutrophils % (auto) 76.9 % (37.0-80.0); Nucleated Red Blood Cells % 0.2 %; Red Blood Cells 3.14 10^6/uL (4.5-5.90); Red Cell Distribution Width 17.7 % (11.8-14.3); White Blood Cell 9.9 10^3/uL (4.4-10.8)
[2022-08-01] MEDS: FUROSEMIDE 100 MG/10ML VIAL IV SCH (06:15)
[2022-08-01 06:32] LABS: Potassium 4.4 mmol/L (3.5-5.1)
[2022-08-01 06:35] LABS: BUN/Creatinine Ratio 26.1
[2022-08-01] MEDS: PANTOPRAZOLE 40 MG TAB PO SCH (09:41)
[2022-08-01] MEDS: AZITHROMYCIN 500MG/ 250ML 250 ML IV SCH (09:41)
[2022-08-01] MEDS: cefTRIAXone 1GM/50ML D5W 50 ML IV SCH (09:41)
[2022-08-01] MEDS: METOPROLOL TARTRATE 25 MG TAB PO SCH ×2 (09:42→23:10)
[2022-08-01] MEDS ORDERED: SPIRONOLACTONE 25 MG TAB PO SCH (10:00)
[2022-08-01] MEDS ORDERED: VANCOMYCIN PER PHARMACY 0 MG IV SCH (15:00)
[2022-08-01] MEDS ORDERED: VANCOMYCIN 1GM/250ML 250 ML IV ONE (16:00)
[2022-08-01] MEDS: FUROSEMIDE 40 MG/4 ML VIAL IV SCH (17:58)
[2022-08-01] MEDS: DOXYCYCLINE 100 MG TAB/CAP PO SCH (22:00)
[2022-08-02] VITALS (19 sets, daily range): BP systolic 88–119; BP diastolic 45–64
[2022-08-02] MEDS ORDERED: VANCOMYCIN 1GM/250ML 250 ML IV SCH
[2022-08-02] MEDS: MORPHINE SULFATE INJ 2 MG/ml SYRG IV PRN ×2 (04:56→16:21)
[2022-08-02 05:18] LABS: Hematocrit 31.3 % (41.0-53.0); Hemoglobin 10.4 g/dL (13.5-17.5); Mean Corpuscular Hemoglobin 31.9 pg (28.0-32.0); Mean Corpuscular Hgb Conc. 33.1 g/dL (32.0-36.0); Mean Corpuscular Volume 96.5 fL (80.0-100.0); Red Blood Cells 3.24 10^6/uL (4.5-5.90); Red Cell Distribution Width 18.5 % (11.8-14.3); White Blood Cell 7.7 10^3/uL (4.4-10.8)
[2022-08-02 05:31] LABS: BUN/Creatinine Ratio 26.2; Calcium 7.7 mg/dL (8.5-10.1); Potassium 4.3 mmol/L (3.5-5.1)
[2022-08-02 05:46] LABS: Basophils % (manual) 0 (0.0-2.0); Blast Cells 0; Metamyelocytes % 0; Myelocytes % 0; Promyelocytes % 0; Reactive Lymphocytes 0
[2022-08-02] MEDS: FUROSEMIDE 40 MG/4 ML VIAL IV SCH ×2 (06:30→18:27)
[2022-08-02 09:50] LABS: Band Neutrophils % (manual) 3; Eosinophils % (manual) 3 (0-7); Lymphocytes % (manual) 14 (10.0-50.0); Monocytes % (manual) 19 (0-12)
[2022-08-02] MEDS: PANTOPRAZOLE 40 MG TAB PO SCH (10:46)
[2022-08-02] MEDS: SPIRONOLACTONE 25 MG TAB PO SCH (10:46)
[2022-08-02] MEDS: METOPROLOL TARTRATE 25 MG TAB PO SCH ×2 (10:47→22:06)
[2022-08-02] MEDS: DOXYCYCLINE 100 MG TAB/CAP PO SCH ×2 (10:48→22:04)
[2022-08-03 04:48] VITALS: BP 101/47
[2022-08-03] MEDS: FUROSEMIDE 40 MG/4 ML VIAL IV SCH ×3 (05:24→19:11)
[2022-08-03 06:22] LABS: BUN/Creatinine Ratio 31.3; Calcium 7.5 mg/dL (8.5-10.1); Potassium 4.3 mmol/L (3.5-5.1)
[2022-08-03 06:25] LABS: INR 1.77 (0.9-1.15); Partial Thromboplastin Time 54.3 sec (24.6-33.4)
[2022-08-03 06:28] LABS: Hematocrit 28.7 % (41.0-53.0); Hemoglobin 9.9 g/dL (13.5-17.5); Mean Corpuscular Hemoglobin 33.3 pg (28.0-32.0); Mean Corpuscular Hgb Conc. 34.5 g/dL (32.0-36.0); Mean Corpuscular Volume 96.4 fL (80.0-100.0); Red Blood Cells 2.98 10^6/uL (4.5-5.90); Red Cell Distribution Width 18.3 % (11.8-14.3); White Blood Cell 7.5 10^3/uL (4.4-10.8)
[2022-08-03 06:35] LABS: Band Neutrophils % (manual) 0; Basophils % (manual) 0 (0.0-2.0); Blast Cells 0; Metamyelocytes % 0; Myelocytes % 0; Promyelocytes % 0; Reactive Lymphocytes 0
[2022-08-03 08:06] LABS: Eosinophils % (manual) 2 (0-7); Lymphocytes % (manual) 14 (10.0-50.0); Monocytes % (manual) 16 (0-12)
[2022-08-03 09:00] VITALS: BP 112/55
[2022-08-03] MEDS: METOPROLOL TARTRATE 25 MG TAB PO SCH ×2 (10:00→21:36)
[2022-08-03] MEDS: SPIRONOLACTONE 25 MG TAB PO SCH (10:12)
[2022-08-03] MEDS: DOXYCYCLINE 100 MG TAB/CAP PO SCH ×2 (10:12→21:36)
[2022-08-03] MEDS: PANTOPRAZOLE 40 MG TAB PO SCH (10:12)
[2022-08-03] MEDS: MORPHINE SULFATE INJ 2 MG/ml SYRG IV PRN (10:15)
[2022-08-03 13:00] VITALS: BP 114/52
[2022-08-03 17:00] VITALS: BP 114/53
[2022-08-03] MEDS: ALBUMIN 25% 50 ML IV SCH (21:40)
[2022-08-03 21:55] VITALS: BP 113/56
[2022-08-04] MEDS: MORPHINE SULFATE INJ 2 MG/ml SYRG IV PRN ×2 (02:31→20:33)
[2022-08-04 04:48] VITALS: BP 105/57
[2022-08-04 05:41] LABS: Hematocrit 27.3 % (41.0-53.0); Hemoglobin 9.5 g/dL (13.5-17.5); Mean Corpuscular Hemoglobin 33.4 pg (28.0-32.0); Mean Corpuscular Volume 95.6 fL (80.0-100.0); Red Blood Cells 2.86 10^6/uL (4.5-5.90); Red Cell Distribution Width 17.9 % (11.8-14.3); White Blood Cell 7.4 10^3/uL (4.4-10.8)
[2022-08-04 06:03] LABS: Potassium 4.7 mmol/L (3.5-5.1)
[2022-08-04 06:08] LABS: BUN/Creatinine Ratio 35.4; Calcium 7.1 mg/dL (8.5-10.1)
[2022-08-04] MEDS: FUROSEMIDE 40 MG/4 ML VIAL IV SCH (06:08)
[2022-08-04 07:44] LABS: Band Neutrophils % (manual) 0; Basophils % (manual) 0 (0.0-2.0); Blast Cells 0; Metamyelocytes % 0; Myelocytes % 0; Promyelocytes % 0; Reactive Lymphocytes 0
[2022-08-04 08:53] VITALS: BP 111/59
[2022-08-04] MEDS: ALBUMIN 25% 50 ML IV SCH ×2 (09:49→22:00)
[2022-08-04] MEDS: PANTOPRAZOLE 40 MG TAB PO SCH (09:49)
[2022-08-04] MEDS: metOLazone 5 MG TAB PO SCH (09:51)
[2022-08-04] MEDS: SPIRONOLACTONE 25 MG TAB PO SCH (09:52)
[2022-08-04] MEDS: DOXYCYCLINE 100 MG TAB/CAP PO SCH ×2 (09:53→23:59)
[2022-08-04] MEDS: METOPROLOL TARTRATE 25 MG TAB PO SCH ×2 (09:53→22:00)
[2022-08-04] MEDS: FUROSEMIDE INJECTION 100 MG in D5W 5% 100 ML IV SCH (11:21)
[2022-08-04 12:21] VITALS: BP 102/49
[2022-08-04 14:28] LABS: Eosinophils % (manual) 3 (0-7); Lymphocytes % (manual) 8 (10.0-50.0); Monocytes % (manual) 17 (0-12)
[2022-08-04 17:10] VITALS: BP 105/49
[2022-08-04 22:00] VITALS: BP 101/43
[2022-08-05 05:00] VITALS: BP 101/44
[2022-08-05 05:18] LABS: Hematocrit 31.5 % (41.0-53.0); Hemoglobin 10.7 g/dL (13.5-17.5); Mean Corpuscular Hemoglobin 32.7 pg (28.0-32.0); Mean Corpuscular Hgb Conc. 34.1 g/dL (32.0-36.0); Mean Corpuscular Volume 95.9 fL (80.0-100.0); Red Blood Cells 3.29 10^6/uL (4.5-5.90); Red Cell Distribution Width 18.5 % (11.8-14.3)
[2022-08-05 05:33] LABS: Band Neutrophils % (manual) 0; Basophils % (manual) 0 (0.0-2.0); Blast Cells 0; Metamyelocytes % 0; Myelocytes % 0; Promyelocytes % 0; Reactive Lymphocytes 0
[2022-08-05 05:38] LABS: Potassium 4.1 mmol/L (3.5-5.1)
[2022-08-05 05:42] LABS: BUN/Creatinine Ratio 32.6; Calcium 7.4 mg/dL (8.5-10.1); Phosphorus 2.9 mg/dL (2.5-4.90); Uric Acid 6.2 mg/dL (3.5-7.2)
[2022-08-05] MEDS: FUROSEMIDE INJECTION 100 MG in D5W 5% 100 ML IV SCH ×2 (06:44→15:40)
[2022-08-05 08:00] LABS: Eosinophils % (manual) 3 (0-7); Lymphocytes % (manual) 12 (10.0-50.0); Monocytes % (manual) 21 (0-12)
[2022-08-05 08:25] VITALS: BP 106/54
[2022-08-05] MEDS: PANTOPRAZOLE 40 MG TAB PO SCH (09:17)
[2022-08-05] MEDS: DOXYCYCLINE 100 MG TAB/CAP PO SCH ×2 (09:17→23:22)
[2022-08-05] MEDS: SPIRONOLACTONE 25 MG TAB PO SCH (09:19)
[2022-08-05] MEDS: METOPROLOL TARTRATE 25 MG TAB PO SCH ×2 (10:00→22:00)
[2022-08-05] MEDS: metOLazone 5 MG TAB PO SCH (10:00)
[2022-08-05] MEDS: ALBUMIN 25% 50 ML IV SCH (10:19)
[2022-08-05 12:30] VITALS: BP 110/54
[2022-08-05 16:15] VITALS: BP 106/58
[2022-08-05 22:00] VITALS: BP 114/55
[2022-08-05] MEDS: MORPHINE SULFATE INJ 2 MG/ml SYRG IV PRN (23:57)
[2022-08-06 01:27] VITALS: BP 106/58
[2022-08-06] MEDS: FUROSEMIDE INJECTION 100 MG in D5W 5% 100 ML IV SCH ×3 (03:04→22:30)
[2022-08-06 03:59] LABS: Mean Corpuscular Volume 95.9 fL (80.0-100.0)
[2022-08-06 04:01] LABS: Hematocrit 29.8 % (41.0-53.0); Hemoglobin 10.3 g/dL (13.5-17.5); Mean Corpuscular Hemoglobin 33.1 pg (28.0-32.0); Mean Corpuscular Hgb Conc. 34.5 g/dL (32.0-36.0); Red Blood Cells 3.11 10^6/uL (4.5-5.90); Red Cell Distribution Width 18.4 % (11.8-14.3)
[2022-08-06 04:09] LABS: Basophils % (manual) 0 (0.0-2.0); Blast Cells 0; Eosinophils % (manual) 0 (0-7); Metamyelocytes % 0; Myelocytes % 0; Promyelocytes % 0; Reactive Lymphocytes 0
[2022-08-06 04:14] LABS: Potassium 4.2 mmol/L (3.5-5.1)
[2022-08-06 04:19] LABS: Calcium 7.7 mg/dL (8.5-10.1)
[2022-08-06 05:00] VITALS: BP 109/54
[2022-08-06 07:22] LABS: Band Neutrophils % (manual) 1; Lymphocytes % (manual) 14 (10.0-50.0); Monocytes % (manual) 22 (0-12)
[2022-08-06 08:00] VITALS: BP 112/56
[2022-08-06] MEDS: DOXYCYCLINE 100 MG TAB/CAP PO SCH ×2 (09:12→22:29)
[2022-08-06] MEDS: METOPROLOL TARTRATE 25 MG TAB PO SCH ×2 (09:12→22:29)
[2022-08-06] MEDS: SPIRONOLACTONE 25 MG TAB PO SCH (10:00)
[2022-08-06] MEDS: metOLazone 5 MG TAB PO SCH (10:00)
[2022-08-06] MEDS ORDERED: LIDOCAINE 2% (LOCAL ANESTH.) PF 5ml SDV ONE (10:16)
[2022-08-06 10:35] LABS: INR 1.86 (0.9-1.15); Partial Thromboplastin Time 57.1 sec (24.6-33.4)
[2022-08-06] MEDS ORDERED: phytonadione 10 MG in SODIUM CHL 0.9% 50 ML IV ONE (11:15)
[2022-08-06] MEDS: PANTOPRAZOLE 40 MG TAB PO SCH (11:15)
[2022-08-06 12:00] VITALS: BP 111/59
[2022-08-06 16:00] VITALS: BP 112/59
[2022-08-06 21:55] VITALS: BP 106/58
[2022-08-06] MEDS: MORPHINE SULFATE INJ 2 MG/ml SYRG IV PRN (22:30)
[2022-08-07 04:48] VITALS: BP 99/51
[2022-08-07 05:39] LABS: Hematocrit 25.3 % (41.0-53.0); Hemoglobin 8.9 g/dL (13.5-17.5); Mean Corpuscular Hemoglobin 33.8 pg (28.0-32.0); Mean Corpuscular Hgb Conc. 35.1 g/dL (32.0-36.0); Mean Corpuscular Volume 96.2 fL (80.0-100.0); Red Blood Cells 2.63 10^6/uL (4.5-5.90); White Blood Cell 6.6 10^3/uL (4.4-10.8)
[2022-08-07 05:42] LABS: Band Neutrophils % (manual) 0; Basophils % (manual) 0 (0.0-2.0); Blast Cells 0; Myelocytes % 0; Promyelocytes % 0; Reactive Lymphocytes 0
[2022-08-07 05:53] LABS: Calcium 7.5 mg/dL (8.5-10.1); Potassium 4.1 mmol/L (3.5-5.1)
[2022-08-07 05:57] LABS: BUN/Creatinine Ratio 38.1
[2022-08-07] MEDS ORDERED: FUROSEMIDE 100 MG/10ML VIAL IV ONE (07:30)
[2022-08-07 07:58] LABS: Eosinophils % (manual) 1 (0-7); Lymphocytes % (manual) 9 (10.0-50.0); Metamyelocytes % 2; Monocytes % (manual) 20 (0-12)
[2022-08-07 08:00] VITALS: BP 110/57
[2022-08-07] MEDS: FUROSEMIDE INJECTION 100 MG in D5W 5% 100 ML IV SCH ×2 (08:29→18:00)
[2022-08-07] MEDS: PANTOPRAZOLE 40 MG TAB PO SCH (09:39)
[2022-08-07] MEDS: SPIRONOLACTONE 25 MG TAB PO SCH (09:39)
[2022-08-07] MEDS: DOXYCYCLINE 100 MG TAB/CAP PO SCH ×2 (09:39→22:00)
[2022-08-07] MEDS: metOLazone 5 MG TAB PO SCH (10:00)
[2022-08-07] MEDS: ALBUMIN 25% 50 ML IV SCH ×2 (11:56→19:17)
[2022-08-07 12:00] VITALS: BP 104/52
[2022-08-07] MEDS: DOPamine 1600MCG/ML D5W 250 ML IV SCH (13:00)
[2022-08-07 16:00] VITALS: BP_SYST 105; BP_SYST 126; BP_DIAS 52; BP_DIAS 56
[2022-08-07 22:00] VITALS: BP 111/49
[2022-08-08] MEDS: ALBUMIN 25% 50 ML IV SCH (02:31)
[2022-08-08] MEDS: FUROSEMIDE INJECTION 100 MG in D5W 5% 100 ML IV SCH ×3 (03:03→23:31)
[2022-08-08 05:00] VITALS: BP 121/57
[2022-08-08 05:44] LABS: Potassium 4.2 mmol/L (3.5-5.1)
[2022-08-08 05:49] LABS: BUN/Creatinine Ratio 37.1
[2022-08-08 09:00] VITALS: BP 123/60
[2022-08-08] MEDS: PANTOPRAZOLE 40 MG TAB PO SCH (09:06)
[2022-08-08] MEDS: DOXYCYCLINE 100 MG TAB/CAP PO SCH ×2 (09:07→22:38)
[2022-08-08] MEDS: SPIRONOLACTONE 25 MG TAB PO SCH (09:07)
[2022-08-08] MEDS: metOLazone 5 MG TAB PO SCH (09:13)
[2022-08-08] MEDS: ALBUMIN 25% 100 ML IV SCH ×2 (11:50→18:27)
[2022-08-08] MEDS: DOPamine 1600MCG/ML D5W 250 ML IV SCH (14:19)
[2022-08-08] MEDS ORDERED: metOLazone 5 MG TAB PO ONE (19:15)
[2022-08-08 22:27] VITALS: BP 120/55
[2022-08-09] MEDS: ALBUMIN 25% 100 ML IV SCH (02:58)
[2022-08-09 05:29] VITALS: BP 121/67
[2022-08-09 06:27] LABS: BUN/Creatinine Ratio 35.7
[2022-08-09 09:00] VITALS: BP 125/60
[2022-08-09] MEDS: SPIRONOLACTONE 25 MG TAB PO SCH (09:38)
[2022-08-09] MEDS: DOXYCYCLINE 100 MG TAB/CAP PO SCH ×2 (09:38→21:39)
[2022-08-09] MEDS: metOLazone 5 MG TAB PO SCH (09:39)
[2022-08-09] MEDS: PANTOPRAZOLE 40 MG TAB PO SCH (09:39)
[2022-08-09] MEDS: DOPamine 1600MCG/ML D5W 250 ML IV SCH (09:53)
[2022-08-09] MEDS: FUROSEMIDE INJECTION 100 MG in D5W 5% 100 ML IV SCH ×2 (09:53→17:06)
[2022-08-09 13:00] VITALS: BP 112/61
[2022-08-09] MEDS: MORPHINE SULFATE INJ 2 MG/ml SYRG IV PRN (16:11)
[2022-08-09 16:42] VITALS: BP 108/57
[2022-08-09 22:00] VITALS: BP 110/51
[2022-08-10] MEDS ORDERED: FUROSEMIDE INJECTION 10 ML ONE (03:45)
[2022-08-10] MEDS: FUROSEMIDE INJECTION 100 MG in D5W 5% 100 ML IV SCH ×2 (04:18→17:16)
[2022-08-10 05:00] VITALS: BP 110/57
[2022-08-10] MEDS: DOPamine 1600MCG/ML D5W 250 ML IV SCH (05:03)
[2022-08-10 05:28] LABS: BUN/Creatinine Ratio 29.9; Calcium 8.4 mg/dL (8.5-10.1); Potassium 3.7 mmol/L (3.5-5.1)
[2022-08-10 08:59] VITALS: BP 110/58
[2022-08-10] MEDS: DOXYCYCLINE 100 MG TAB/CAP PO SCH ×2 (09:31→22:04)
[2022-08-10] MEDS: SPIRONOLACTONE 25 MG TAB PO SCH (09:31)
[2022-08-10] MEDS: PANTOPRAZOLE 40 MG TAB PO SCH (09:32)
[2022-08-10] MEDS: metOLazone 5 MG TAB PO SCH (09:32)
[2022-08-10 13:00] VITALS: BP 111/61
[2022-08-10 16:44] VITALS: BP 121/61
[2022-08-10 22:00] VITALS: BP 110/59
[2022-08-10] MEDS: MORPHINE SULFATE INJ 2 MG/ml SYRG IV PRN (22:04)
[2022-08-11] MEDS: FUROSEMIDE INJECTION 100 MG in D5W 5% 100 ML IV SCH (01:25)
[2022-08-11] MEDS: DOPamine 1600MCG/ML D5W 250 ML IV SCH ×2 (03:19→04:26)
[2022-08-11] MEDS: MORPHINE SULFATE INJ 2 MG/ml SYRG IV PRN ×3 (04:25→22:20)
[2022-08-11 05:00] VITALS: BP 110/66
[2022-08-11 05:24] LABS: Hemoglobin 10.3 g/dL (13.5-17.5)
[2022-08-11 05:28] LABS: Mean Corpuscular Hemoglobin 33.3 pg (28.0-32.0); Mean Corpuscular Hgb Conc. 34.5 g/dL (32.0-36.0); Mean Corpuscular Volume 96.6 fL (80.0-100.0); White Blood Cell 5.4 10^3/uL (4.4-10.8)
[2022-08-11 05:41] LABS: Albumin 2.2 g/dL (3.4-5.0); Calcium 8.8 mg/dL (8.5-10.1); Magnesium 1.6 mg/dL (1.6-2.6); Potassium 3.6 mmol/L (3.5-5.1)
[2022-08-11 05:43] LABS: Band Neutrophils % (manual) 0; Basophils % (manual) 0 (0.0-2.0); Blast Cells 0; Eosinophils % (manual) 0 (0-7); Myelocytes % 0; Promyelocytes % 0; Reactive Lymphocytes 0
[2022-08-11 05:46] LABS: BUN/Creatinine Ratio 31.7; Bilirubin, Total 6.8 mg/dL (0.2-1.0)
[2022-08-11 07:32] LABS: Lymphocytes % (manual) 24 (10.0-50.0); Metamyelocytes % 1; Monocytes % (manual) 18 (0-12)
[2022-08-11 09:00] VITALS: BP_SYST 115
[2022-08-11] MEDS: DOXYCYCLINE 100 MG TAB/CAP PO SCH ×2 (09:04→21:32)
[2022-08-11] MEDS: metOLazone 5 MG TAB PO SCH (09:04)
[2022-08-11] MEDS: PANTOPRAZOLE 40 MG TAB PO SCH (09:05)
[2022-08-11] MEDS: SPIRONOLACTONE 25 MG TAB PO SCH (09:06)
[2022-08-11] MEDS: ALBUMIN 25% 100 ML IV SCH ×2 (11:07→17:19)
[2022-08-11 12:54] LABS: Creatinine, Urine 38 mg/dL (30.0-125.0); Sodium Urine 84 mmol/L (40-220)
[2022-08-11 13:00] VITALS: BP 100/56
[2022-08-11 17:03] VITALS: BP 104/59
[2022-08-11 22:00] VITALS: BP 107/58
[2022-08-12] MEDS: ALBUMIN 25% 100 ML IV SCH (02:11)
[2022-08-12 05:00] VITALS: BP 93/50
[2022-08-12] MEDS: DOPamine 1600MCG/ML D5W 250 ML IV SCH (05:00)
[2022-08-12 09:16] VITALS: BP 113/49
[2022-08-12] MEDS: PANTOPRAZOLE 40 MG TAB PO SCH (10:15)
[2022-08-12] MEDS: DOXYCYCLINE 100 MG TAB/CAP PO SCH ×2 (10:15→21:26)
[2022-08-12] MEDS: SPIRONOLACTONE 25 MG TAB PO SCH (10:18)
[2022-08-12 11:40] LABS: Albumin 2.8 g/dL (3.4-5.0); Calcium 8.9 mg/dL (8.5-10.1); Potassium 4.4 mmol/L (3.5-5.1)
[2022-08-12 11:44] LABS: BUN/Creatinine Ratio 36.1; Bilirubin, Total 8.3 mg/dL (0.2-1.0)
[2022-08-12 13:00] VITALS: BP 112/51
[2022-08-12] MEDS: GABAPENTIN 100 MG CAP PO SCH ×2 (13:14→21:26)
[2022-08-12 17:00] VITALS: BP 110/59
[2022-08-12] MEDS: FUROSEMIDE 20 MG/2 ML VIAL IV SCH (17:43)
[2022-08-12 21:51] VITALS: BP 99/51
[2022-08-13 05:00] VITALS: BP 93/51
[2022-08-13] MEDS: FUROSEMIDE 20 MG/2 ML VIAL IV SCH ×2 (06:00→18:16)
[2022-08-13 08:48] VITALS: BP 97/58
[2022-08-13] MEDS: PANTOPRAZOLE 40 MG TAB PO SCH (09:01)
[2022-08-13] MEDS: GABAPENTIN 100 MG CAP PO SCH ×2 (09:01→21:53)
[2022-08-13] MEDS: DOXYCYCLINE 100 MG TAB/CAP PO SCH ×2 (09:01→21:53)
[2022-08-13] MEDS: SPIRONOLACTONE 25 MG TAB PO SCH (09:02)
[2022-08-13] MEDS: ALBUMIN 25% 100 ML IV SCH ×2 (12:32→18:17)
[2022-08-13 13:00] VITALS: BP 103/57
[2022-08-13 17:00] VITALS: BP 110/50
[2022-08-13 22:00] VITALS: BP 108/53
[2022-08-14] MEDS: ALBUMIN 25% 100 ML IV SCH (01:17)
[2022-08-14 05:00] VITALS: BP_SYST 103; BP_SYST 98; BP_DIAS 56; BP_DIAS 58
[2022-08-14] MEDS: FUROSEMIDE 20 MG/2 ML VIAL IV SCH (06:09)
[2022-08-14 06:52] LABS: Basophils # (auto) 0 10 ^3/uL (0-0.2); Eosinophils # (auto) 0 10 ^3/uL (0-0.8); Hematocrit 24.8 % (41.0-53.0); Hemoglobin 8.8 g/dL (13.5-17.5); Mean Corpuscular Hgb Conc. 35.3 g/dL (32.0-36.0); Monocytes # (auto) 0.7 10 ^3/uL (0-1.3)
[2022-08-14 06:56] LABS: Basophils % (auto) 0.4 % (0.0-2.0); Eosinophils % (auto) 0.9 % (0.0-7.0); Lymphocytes # (auto) 0.6 10 ^3/uL (0.4-5.4); Lymphocytes % (auto) 11.5 % (10.0-50.0); Mean Corpuscular Hemoglobin 33.8 pg (28.0-32.0); Mean Corpuscular Volume 95.7 fL (80.0-100.0); Monocytes % (auto) 14.4 % (0.0-12.0); Neutrophils # (auto) 3.7 10 ^3/uL (1.6-8.6); Neutrophils % (auto) 72.8 % (37.0-80.0); Nucleated Red Blood Cells % 0.1 %; Red Cell Distribution Width 18.3 % (11.8-14.3)
[2022-08-14 07:08] LABS: BUN/Creatinine Ratio 37.4; Calcium 8.4 mg/dL (8.5-10.1); Magnesium 2.2 mg/dL (1.6-2.6); Potassium 4.1 mmol/L (3.5-5.1)
[2022-08-14 08:33] VITALS: BP 101/58
[2022-08-14] MEDS: DOXYCYCLINE 100 MG TAB/CAP PO SCH (09:58)
[2022-08-14] MEDS: GABAPENTIN 100 MG CAP PO SCH (09:58)
[2022-08-14] MEDS: PANTOPRAZOLE 40 MG TAB PO SCH (09:59)
[2022-08-14] MEDS: SPIRONOLACTONE 25 MG TAB PO SCH (10:00)
[2022-08-14 13:00] VITALS: BP 109/62
[2022-08-14 17:00] VITALS: BP 102/57
[2022-08-14] MEDS ORDERED: HYDROcodone-ACET 10/325MG TAB PO PRN (19:45)
[2022-08-14] MEDS: GABAPENTIN 300 MG CAP PO SCH (21:50)
[2022-08-14 22:00] VITALS: BP 103/57
[2022-08-15 05:00] VITALS: BP 107/59
[2022-08-15] MEDS: GABAPENTIN 300 MG CAP PO SCH ×3 (05:26→22:36)
[2022-08-15 06:36] LABS: Albumin 2.6 g/dL (3.4-5.0); BUN/Creatinine Ratio 32.6; Calcium 7.5 mg/dL (8.5-10.1); Potassium 4.3 mmol/L (3.5-5.1)
[2022-08-15 06:38] LABS: Bilirubin, Total 7.3 mg/dL (0.2-1.0); Total Protein 5.7 g/dL (6.4-8.2)
[2022-08-15] MEDS: SPIRONOLACTONE 25 MG TAB PO SCH (10:14)
[2022-08-15] MEDS: PANTOPRAZOLE 40 MG TAB PO SCH (10:14)
[2022-08-15 13:00] VITALS: BP 102/51
[2022-08-15 16:51] VITALS: BP 91/36
[2022-08-15 22:00] VITALS: BP 116/50
[2022-08-16 05:00] VITALS: BP 99/51
[2022-08-16 05:54] LABS: Potassium 4.1 mmol/L (3.5-5.1)
[2022-08-16 06:05] LABS: Albumin 2.6 g/dL (3.4-5.0); BUN/Creatinine Ratio 34.1; Bilirubin, Total 7.2 mg/dL (0.2-1.0); Total Protein 6.1 g/dL (6.4-8.2)
[2022-08-16] MEDS: GABAPENTIN 300 MG CAP PO SCH ×3 (06:39→21:18)
[2022-08-16 09:00] VITALS: BP 100/49
[2022-08-16] MEDS: SPIRONOLACTONE 25 MG TAB PO SCH (10:00)
[2022-08-16] MEDS: PANTOPRAZOLE 40 MG TAB PO SCH (10:28)
[2022-08-16 13:00] VITALS: BP 108/60
[2022-08-16 17:00] VITALS: BP 91/56
[2022-08-16 22:00] VITALS: BP 102/58
[2022-08-17 05:00] VITALS: BP 95/53
[2022-08-17] MEDS: GABAPENTIN 300 MG CAP PO SCH ×2 (06:05→13:36)
[2022-08-17 08:24] VITALS: BP 97/53
[2022-08-17] MEDS: PANTOPRAZOLE 40 MG TAB PO SCH (09:50)
[2022-08-17] MEDS: SPIRONOLACTONE 25 MG TAB PO SCH (09:50)
[2022-08-17 12:53] VITALS: BP 87/45
[2022-08-17 18:37] VITALS: BP 98/58
== END 2022-08-17 20:30 | DRG 193 ==
LOC: ER 12:02 → EDBD 12:02 → TELE 17:25 → DOU IN ICU 07-31 22:05 → ICU CENTRL 07-31 22:24 → DOU IN ICU 08-01 19:34 → TELE-WESTW 08-03 04:20
PROVIDERS: ADMIT Registered Nurse; ATTEND Internal Medicine
PROC: 0W9930Z Drainage of Right Pleural Cavity with Drainage Device, Percutaneous Approach (ICD-10-PCS; principal; 2022-07-31)
PROC: 30233N1 Transfusion of Nonautologous Red Blood Cells into Peripheral Vein, Percutaneous Approach (ICD-10-PCS; 2022-07-31)
DX: J18.9 Pneumonia, unspecified organism (principal); I50.33 Acute on chronic diastolic (congestive) heart failure; J96.01 Acute respiratory failure with hypoxia; E46 Unspecified protein-calorie malnutrition; D68.9 Coagulation defect, unspecified; J98.11 Atelectasis; D68.4 Acquired coagulation factor deficiency; E87.1 Hypo-osmolality and hyponatremia; I13.0 Hypertensive heart and chronic kidney disease with heart failure and stage 1 through stage 4 chronic kidney disease, or unspecified chronic kidney disease; N17.9 Acute kidney failure, unspecified; Z68.41 Body mass index [BMI] 40.0-44.9, adult; J91.8 Pleural effusion in other conditions classified elsewhere; K70.31 Alcoholic cirrhosis of liver with ascites; E78.5 Hyperlipidemia, unspecified; R73.9 Hyperglycemia, unspecified; E03.9 Hypothyroidism, unspecified; E66.01 Morbid (severe) obesity due to excess calories; Z20.822 Contact with and (suspected) exposure to COVID-19; D63.8 Anemia in other chronic diseases classified elsewhere; D69.59 Other secondary thrombocytopenia; E88.09 Other disorders of plasma-protein metabolism, not elsewhere classified; G62.9 Polyneuropathy, unspecified; G89.4 Chronic pain syndrome; K21.9 Gastro-esophageal reflux disease without esophagitis; N18.2 Chronic kidney disease, stage 2 (mild); R73.03 Prediabetes; Z79.899 Other long term (current) drug therapy; Z80.1 Family history of malignant neoplasm of trachea, bronchus and lung; Z82.49 Family history of ischemic heart disease and other diseases of the circulatory system; Z83.3 Family history of diabetes mellitus
CPT/HCPCS: 36415; 36430; 71045; 71250; 76604; 76705; 76775; 80048; 80053; 80061; 81001; 82140; 82570; 83036; 83735; 83880; 83935; 84100; 84300; 84443; 84484; 84550; 85007; 85025; 85027; 85049; 85610; 85730; 86850; 86900; 86901; 87040; 87077; 87081; 87186; 87205; 89051; 93005; 93306; 93970; 96365; 96375; 97110; 97116; 97163; 97530; G0378; J0696; J2001; J3430; J7060; P9047

== ENCOUNTER 2022-12-09 20:25 | Inpatient (IN) | payer BC ==
[~2022-12-09] VITALS: Ht 182.9 cm; Wt 200.0 kg
[2022-12-09 21:45] LABS: Hematocrit 28.1 % (41.0-53.0); Hemoglobin 9.5 g/dL (13.5-17.5); Mean Corpuscular Hemoglobin 31.4 pg (28.0-32.0); Mean Corpuscular Hgb Conc. 33.8 g/dL (32.0-36.0); Mean Corpuscular Volume 92.7 fL (80.0-100.0); Red Blood Cells 3.03 10^6/uL (4.5-5.90); Red Cell Distribution Width 16.2 % (11.8-14.3); White Blood Cell 6.8 10^3/uL (4.4-10.8)
[2022-12-09 21:54] LABS: Band Neutrophils % (manual) 0; Basophils % (manual) 0 (0.0-2.0); Blast Cells 0; Eosinophils % (manual) 0 (0-7); Metamyelocytes % 0; Myelocytes % 0; Promyelocytes % 0; Reactive Lymphocytes 0
[2022-12-09 22:00] LABS: INR 1.89 (0.9-1.15)
[2022-12-09 22:10] LABS: Lymphocytes % (manual) 9 (10.0-50.0); Monocytes % (manual) 17 (0-12)
[2022-12-09 22:24] LABS: Albumin 1.5 g/dL (3.4-5.0); BUN/Creatinine Ratio 15.1; Calcium 8.1 mg/dL (8.5-10.1); Potassium 4.3 mmol/L (3.5-5.1)
[2022-12-09 22:27] LABS: Bilirubin, Total 6.8 mg/dL (0.2-1.0); Total Protein 5.5 g/dL (6.4-8.2)
[2022-12-09 23:27] LABS: Urine Bacteria NONE SEEN /hpf (None Seen); Urine Blood Negative /uL (Negative); Urine WBC 2 /hpf (0 - 3)
[2022-12-10] MEDS ORDERED: HYDROcodone-ACET 5/325MG TAB PO PRN (00:15)
[2022-12-10] MEDS ORDERED: ONDANSETRON HCL 4 MG/2 ML VIAL IV PRN (00:15)
[2022-12-10] MEDS ORDERED: ACETAMINOPHEN 325 MG TAB PO PRN (00:15)
[2022-12-10] MEDS ORDERED: FUROSEMIDE 40 MG/4 ML VIAL IV ONE (00:15)
[2022-12-10] MEDS ORDERED: DOCUSATE SOD 100 MG CAP PO PRN (00:15)
[2022-12-10] MEDS: ALBUMIN 25% 100 ML IV SCH ×3 (00:40→16:13)
[2022-12-10] MEDS ORDERED: MORPHINE SULFATE INJ 2 MG/ml SYRG IV PRN (02:15)
[2022-12-10] MEDS ORDERED: NITROGLYCERIN 0.4 MG SL TAB SL PRN (02:15)
[2022-12-10 06:00] LABS: Hemoglobin 10.1 g/dL (13.5-17.5); Mean Corpuscular Hemoglobin 32.3 pg (28.0-32.0); Mean Corpuscular Hgb Conc. 34.8 g/dL (32.0-36.0); Mean Corpuscular Volume 92.8 fL (80.0-100.0); Red Blood Cells 3.12 10^6/uL (4.5-5.90); Red Cell Distribution Width 16.8 % (11.8-14.3); White Blood Cell 5.7 10^3/uL (4.4-10.8)
[2022-12-10] MEDS: SODIUM CHLOR 0.9% PF (SALINE LOCK) 10ML VIAL/SYR IV SCH ×3 (06:01→22:26)
[2022-12-10 06:14] LABS: Potassium 4.4 mmol/L (3.5-5.1)
[2022-12-10 06:22] LABS: BUN/Creatinine Ratio 16.1; Bilirubin, Total 9.1 mg/dL (0.2-1.0); Total Protein 5.7 g/dL (6.4-8.2)
[2022-12-10 09:42] LABS: Basophils % (manual) 0 (0.0-2.0); Blast Cells 0; Eosinophils % (manual) 0 (0-7); Myelocytes % 0; Promyelocytes % 0; Reactive Lymphocytes 0
[2022-12-10] MEDS: MULTIPLE VITAMIN TAB PO SCH (09:43)
[2022-12-10] MEDS ORDERED: ZINC SULFATE 220mg CAP or TAB PO SCH (10:00)
[2022-12-10] MEDS ORDERED: FAMOTIDINE (10MG/ML) 2ML VL IV SCH (10:00)
[2022-12-10] MEDS ORDERED: ASCORBIC ACID 500 MG TAB PO SCH (10:00)
[2022-12-10] MEDS ORDERED: FUROSEMIDE 40 MG/4 ML VIAL IV SCH (10:00)
[2022-12-10 11:33] LABS: Band Neutrophils % (manual) 2; Lymphocytes % (manual) 15 (10.0-50.0); Metamyelocytes % 2; Monocytes % (manual) 14 (0-12)
[2022-12-10] MEDS: SPIRONOLACTONE 25 MG TAB PO SCH (22:28)
[2022-12-10] MEDS: rifAXIMin 550 MG TAB PO SCH (22:28)
[2022-12-10] MEDS: POTASSIUM CHLORIDE 8 MEQ TAB PO SCH (22:28)
[2022-12-10] MEDS: FUROSEMIDE 40 MG/4 ML VIAL IV SCH (22:29)
[2022-12-11 05:19] LABS: Hemoglobin 8.6 g/dL (13.5-17.5); Mean Corpuscular Hemoglobin 31.9 pg (28.0-32.0); Mean Corpuscular Hgb Conc. 34.2 g/dL (32.0-36.0); Mean Corpuscular Volume 93.1 fL (80.0-100.0); Red Blood Cells 2.69 10^6/uL (4.5-5.90); White Blood Cell 5.2 10^3/uL (4.4-10.8)
[2022-12-11 05:23] LABS: Basophils % (manual) 0 (0.0-2.0); Blast Cells 0; Metamyelocytes % 0; Myelocytes % 0; Promyelocytes % 0; Reactive Lymphocytes 0
[2022-12-11 05:35] LABS: Calcium 8.2 mg/dL (8.5-10.1); Potassium 4.1 mmol/L (3.5-5.1)
[2022-12-11 05:39] LABS: BUN/Creatinine Ratio 17.2; Bilirubin, Total 7.7 mg/dL (0.2-1.0); Total Protein 5.3 g/dL (6.4-8.2)
[2022-12-11] MEDS: SODIUM CHLOR 0.9% PF (SALINE LOCK) 10ML VIAL/SYR IV SCH ×2 (06:01→14:21)
[2022-12-11 07:36] LABS: Band Neutrophils % (manual) 3; Lymphocytes % (manual) 14 (10.0-50.0)
[2022-12-11 07:37] LABS: Eosinophils % (manual) 2 (0-7); Monocytes % (manual) 18 (0-12)
[2022-12-11] MEDS: POTASSIUM CHLORIDE 8 MEQ TAB PO SCH ×2 (11:15→22:27)
[2022-12-11] MEDS: rifAXIMin 550 MG TAB PO SCH ×2 (11:16→22:25)
[2022-12-11] MEDS: MULTIPLE VITAMIN TAB PO SCH (11:17)
[2022-12-11] MEDS: SPIRONOLACTONE 25 MG TAB PO SCH ×2 (11:19→22:26)
[2022-12-11] MEDS: PANTOPRAZOLE 40 MG TAB PO SCH (11:19)
[2022-12-11] MEDS: FUROSEMIDE 40 MG/4 ML VIAL IV SCH ×2 (11:20→22:26)
[2022-12-11 16:20] LABS: Urine Bacteria FEW /hpf (None Seen); Urine Blood Negative /uL (Negative); Urine Specific Gravity 1.007 (1.001-1.035); Urine WBC <1 /hpf (0 - 3)
[2022-12-11] MEDS ORDERED: TRAM50TA2 PO (18:40)
[2022-12-11] MEDS ORDERED: GABA300C10 PO (18:40)
[2022-12-11 19:13] VITALS: BP 132/72
[2022-12-11] MEDS: LACTULOSE 20Gm/30ML SOLN PO SCH (22:24)
[2022-12-11 23:19] VITALS: BP 116/66
[2022-12-12] MEDS: ALBUMIN 25% 100 ML IV SCH ×2 (03:12→04:00)
[2022-12-12] MEDS: SODIUM CHLOR 0.9% PF (SALINE LOCK) 10ML VIAL/SYR IV SCH ×3 (03:14→13:30)
[2022-12-12 04:39] VITALS: BP 113/52
[2022-12-12] MEDS: LACTULOSE 20Gm/30ML SOLN PO SCH ×2 (06:08→13:29)
[2022-12-12 06:19] LABS: Mean Corpuscular Hemoglobin 31.6 pg (28.0-32.0)
[2022-12-12 06:21] LABS: Hematocrit 23.9 % (41.0-53.0); Hemoglobin 8.1 g/dL (13.5-17.5); Mean Corpuscular Volume 92.8 fL (80.0-100.0); Red Blood Cells 2.58 10^6/uL (4.5-5.90); Red Cell Distribution Width 16.7 % (11.8-14.3); White Blood Cell 4.1 10^3/uL (4.4-10.8)
[2022-12-12 06:26] LABS: Basophils % (manual) 0 (0.0-2.0); Blast Cells 0; Metamyelocytes % 0; Myelocytes % 0; Promyelocytes % 0
[2022-12-12 06:39] LABS: Albumin 2.2 g/dL (3.4-5.0); Calcium 8.3 mg/dL (8.5-10.1); Potassium 4.1 mmol/L (3.5-5.1)
[2022-12-12 06:44] LABS: BUN/Creatinine Ratio 19.8; Bilirubin, Total 5.7 mg/dL (0.2-1.0); Total Protein 4.9 g/dL (6.4-8.2)
[2022-12-12 08:12] LABS: Band Neutrophils % (manual) 6; Eosinophils % (manual) 1 (0-7); Lymphocytes % (manual) 20 (10.0-50.0); Monocytes % (manual) 21 (0-12); Reactive Lymphocytes 1
[2022-12-12] MEDS: PANTOPRAZOLE 40 MG TAB PO SCH (08:38)
[2022-12-12] MEDS: rifAXIMin 550 MG TAB PO SCH (08:38)
[2022-12-12] MEDS: FUROSEMIDE 40 MG/4 ML VIAL IV SCH (08:38)
[2022-12-12] MEDS: SPIRONOLACTONE 25 MG TAB PO SCH (08:38)
[2022-12-12] MEDS: MULTIPLE VITAMIN TAB PO SCH (08:39)
[2022-12-12] MEDS: POTASSIUM CHLORIDE 8 MEQ TAB PO SCH (08:39)
[2022-12-12 09:00] VITALS: BP 117/54
[2022-12-12 13:00] VITALS: BP 133/66
[2022-12-12] MEDS ORDERED: LACT10SO3 PO (14:53)
== END 2022-12-12 18:24 | disposition home health service (06) | DRG 433 ==
LOC: EDBD 20:25 → ER 20:25 → TELE 12-10 02:09 → TELE-E-ADS 12-11 17:50 → TELE-EAST 12-11 20:28
PROVIDERS: ADMIT Nurse Practitioner Family; ATTEND Internal Medicine
PROC: 0W993ZZ Drainage of Right Pleural Cavity, Percutaneous Approach (ICD-10-PCS; principal; 2022-12-11)
DX: K70.31 Alcoholic cirrhosis of liver with ascites (principal); D61.818 Other pancytopenia; D68.9 Coagulation defect, unspecified; E46 Unspecified protein-calorie malnutrition; E87.1 Hypo-osmolality and hyponatremia; I50.30 Unspecified diastolic (congestive) heart failure; Z68.43 Body mass index [BMI] 50.0-59.9, adult; G89.29 Other chronic pain; I11.0 Hypertensive heart disease with heart failure; R09.02 Hypoxemia; D69.59 Other secondary thrombocytopenia; R79.89 Other specified abnormal findings of blood chemistry; E66.01 Morbid (severe) obesity due to excess calories; Z80.1 Family history of malignant neoplasm of trachea, bronchus and lung; Z82.49 Family history of ischemic heart disease and other diseases of the circulatory system; Z20.822 Contact with and (suspected) exposure to COVID-19
CPT/HCPCS: 36415; 71045; 74176; 76604; 76942; 80053; 81001; 82105; 82140; 83880; 83986; 85007; 85027; 85610; 87070; 87205; 87426; 89051; 93005; 97163; G0378; J3490; P9047

== ENCOUNTER 2023-01-17 02:12 | Inpatient (IN) | payer BC ==
[~2023-01-17] VITALS: Ht 177.8 cm; Wt 195.9 kg
[~2023-01-17 02:12] MED LIST changes: +GABA300C10 PO; +LACT10SO3 PO; +TRAM50TA2 PO
[2023-01-17 03:10] LABS: Basophils # (auto) 0.2 10 ^3/uL (0-0.2); Basophils % (auto) 2.3 % (0.0-2.0); Eosinophils # (auto) 0.1 10 ^3/uL (0-0.8); Eosinophils % (auto) 1.7 % (0.0-7.0); Hematocrit 27.4 % (41.0-53.0); Hemoglobin 9.3 g/dL (13.5-17.5); Lymphocytes # (auto) 0.7 10 ^3/uL (0.4-5.4); Lymphocytes % (auto) 9.2 % (10.0-50.0); Mean Corpuscular Hemoglobin 31.7 pg (28.0-32.0); Mean Corpuscular Volume 93.1 fL (80.0-100.0); Monocytes # (auto) 1.4 10 ^3/uL (0-1.3); Monocytes % (auto) 17.5 % (0.0-12.0); Neutrophils # (auto) 5.4 10 ^3/uL (1.6-8.6); Neutrophils % (auto) 69.3 % (37.0-80.0); Red Blood Cells 2.94 10^6/uL (4.5-5.90); White Blood Cell 7.8 10^3/uL (4.4-10.8)
[2023-01-17 03:23] LABS: Albumin 1.6 g/dL (3.4-5.0); BUN/Creatinine Ratio 22.9; Calcium 7.7 mg/dL (8.5-10.1); Potassium 4.7 mmol/L (3.5-5.1)
[2023-01-17 03:26] LABS: Bilirubin, Total 6.5 mg/dL (0.2-1.0); Total Protein 6.1 g/dL (6.4-8.2)
[2023-01-17 03:31] LABS: INR 1.99 (0.9-1.15); Partial Thromboplastin Time 50.7 sec (24.6-33.4)
[2023-01-17] MEDS ORDERED: FUROSEMIDE 20 MG/2 ML VIAL IV ONE ×2 (07:00→09:15)
[2023-01-17] MEDS: PANTOPRAZOLE 40 MG/10 ML VIAL INJ IV ONE ×2 (09:15→10:37)
[2023-01-17] MEDS ORDERED: ALBUMIN 25% 100 ML IV ONE (09:15)
[2023-01-17] MEDS ORDERED: LACTULOSE 20Gm/30ML SOLN PO PRN (10:00)
[2023-01-17] MEDS ORDERED: PANTOPRAZOLE 40 MG/10 ML VIAL INJ IV SCH (10:00)
[2023-01-17 10:34] LABS: Cholesterol < 50 mg/dL (< 200); HDL Cholesterol 15 mg/dL (40-59); LDL Cholesterol 33 mg/dL (< 100); Triglycerides 50 mg/dL (< 150)
[2023-01-17] MEDS: PANTOPRAZOLE 40 MG TAB PO SCH (10:37)
[2023-01-17] MEDS: rifAXIMin 550 MG TAB PO SCH ×2 (10:37→21:31)
[2023-01-17] MEDS: CHOLECALCIFEROL (VITD3) 2,000 UNIT CAP/TAB PO SCH (10:38)
[2023-01-17] MEDS ORDERED: LIDOCAINE 2% JELLY 11ml (GLYDO) ONE (12:17)
[2023-01-17 13:27] LABS: Urine Bacteria NONE SEEN /hpf (None Seen); Urine Blood 2+ /uL (Negative); Urine Specific Gravity 1.014 (1.001-1.035); Urine WBC 155 /hpf (0 - 3); Urine WBC Clumps PRESENT /hpf (None Seen)
[2023-01-17] MEDS: GABAPENTIN 300 MG CAP PO SCH ×2 (17:26→21:31)
[2023-01-17 17:39] VITALS: BP 127/77
[2023-01-17 22:00] VITALS: BP 109/64
[2023-01-18 05:00] VITALS: BP 110/52
[2023-01-18 05:37] LABS: Basophils # (auto) 0 10 ^3/uL (0-0.2); Eosinophils # (auto) 0.1 10 ^3/uL (0-0.8); Eosinophils % (auto) 1.2 % (0.0-7.0); Hemoglobin 7.6 g/dL (13.5-17.5); Neutrophils # (auto) 4.9 10 ^3/uL (1.6-8.6)
[2023-01-18 05:47] LABS: Albumin 1.6 g/dL (3.4-5.0); Calcium 7.6 mg/dL (8.5-10.1)
[2023-01-18 05:52] LABS: Bilirubin, Total 7.6 mg/dL (0.2-1.0); Total Protein 5.1 g/dL (6.4-8.2)
[2023-01-18] MEDS: GABAPENTIN 300 MG CAP PO SCH ×3 (05:52→21:41)
[2023-01-18 05:57] LABS: Basophils % (auto) 0.5 % (0.0-2.0); Hematocrit 21.9 % (41.0-53.0); Lymphocytes % (auto) 13.7 % (10.0-50.0); Mean Corpuscular Hemoglobin 31.8 pg (28.0-32.0); Mean Corpuscular Hgb Conc. 34.6 g/dL (32.0-36.0); Mean Corpuscular Volume 91.9 fL (80.0-100.0); Monocytes # (auto) 1.3 10 ^3/uL (0-1.3); Neutrophils % (auto) 66.5 % (37.0-80.0); Red Blood Cells 2.38 10^6/uL (4.5-5.90); Red Cell Distribution Width 16.5 % (11.8-14.3); White Blood Cell 7.3 10^3/uL (4.4-10.8)
[2023-01-18 05:58] LABS: Monocytes % (auto) 18.1 % (0.0-12.0)
[2023-01-18 08:20] VITALS: BP 120/62
[2023-01-18] MEDS: CHOLECALCIFEROL (VITD3) 2,000 UNIT CAP/TAB PO SCH (09:45)
[2023-01-18] MEDS: PANTOPRAZOLE 40 MG TAB PO SCH (09:46)
[2023-01-18] MEDS: rifAXIMin 550 MG TAB PO SCH ×2 (09:46→21:41)
[2023-01-18] MEDS ORDERED: FUROSEMIDE 20 MG/2 ML VIAL IV SCH (10:00)
[2023-01-18 12:00] VITALS: BP 108/61
[2023-01-18] MEDS ORDERED: HYDROcodone-ACET 5/325MG TAB PO PRN (13:15)
[2023-01-18 16:05] VITALS: BP 112/69
[2023-01-18] MEDS: ALBUMIN 25% 100 ML IV SCH (21:22)
[2023-01-18 22:00] VITALS: BP 114/67
[2023-01-18] MEDS: FUROSEMIDE 20 MG/2 ML VIAL IV SCH (22:40)
[2023-01-19 05:00] VITALS: BP 105/55
[2023-01-19] MEDS: GABAPENTIN 300 MG CAP PO SCH ×3 (05:30→22:31)
[2023-01-19 09:00] VITALS: BP 112/57
[2023-01-19] MEDS: FUROSEMIDE 20 MG/2 ML VIAL IV SCH ×2 (10:00→22:32)
[2023-01-19] MEDS: CHOLECALCIFEROL (VITD3) 2,000 UNIT CAP/TAB PO SCH (10:28)
[2023-01-19] MEDS: rifAXIMin 550 MG TAB PO SCH ×2 (10:28→22:31)
[2023-01-19] MEDS: PANTOPRAZOLE 40 MG TAB PO SCH (10:28)
[2023-01-19] MEDS: ALBUMIN 25% 100 ML IV SCH ×2 (10:28→21:05)
[2023-01-19 13:00] VITALS: BP 101/54
[2023-01-19 16:52] VITALS: BP 103/56
[2023-01-19] MEDS ORDERED: OXYMETAZOLINE HCL 0.05 % NASAL SPRAY 15ML EACHNOSTRI ONE (20:15)
[2023-01-19 22:00] VITALS: BP 133/61
[2023-01-19] MEDS: traMADol HCL 50 MG TAB PO PRN (22:31)
[2023-01-20 05:00] VITALS: BP 106/62
[2023-01-20] MEDS: GABAPENTIN 300 MG CAP PO SCH ×3 (05:58→23:08)
[2023-01-20 09:00] VITALS: BP 114/54
[2023-01-20] MEDS: rifAXIMin 550 MG TAB PO SCH ×2 (10:00→23:08)
[2023-01-20] MEDS: CHOLECALCIFEROL (VITD3) 2,000 UNIT CAP/TAB PO SCH (11:57)
[2023-01-20] MEDS: ALBUMIN 25% 100 ML IV SCH ×2 (11:57→21:14)
[2023-01-20] MEDS: PANTOPRAZOLE 40 MG TAB PO SCH (11:57)
[2023-01-20] MEDS: FUROSEMIDE 20 MG/2 ML VIAL IV SCH ×2 (11:58→23:09)
[2023-01-20 13:00] VITALS: BP 107/52
[2023-01-20 17:00] VITALS: BP 120/62
[2023-01-20 19:13] LABS: BUN/Creatinine Ratio 24.1; Calcium 7.6 mg/dL (8.5-10.1); Potassium 4.2 mmol/L (3.5-5.1)
[2023-01-20 19:28] LABS: Hematocrit 20.8 % (41.0-53.0); Mean Corpuscular Hemoglobin 31.4 pg (28.0-32.0); Mean Corpuscular Hgb Conc. 33.6 g/dL (32.0-36.0); Mean Corpuscular Volume 93.5 fL (80.0-100.0); Red Blood Cells 2.22 10^6/uL (4.5-5.90); Red Cell Distribution Width 17.1 % (11.8-14.3)
[2023-01-20 19:35] LABS: Band Neutrophils % (manual) 0; Basophils % (manual) 0 (0.0-2.0); Blast Cells 0; Metamyelocytes % 0; Myelocytes % 0; Promyelocytes % 0; Reactive Lymphocytes 0
[2023-01-20 20:06] LABS: Eosinophils % (manual) 1 (0-7); Lymphocytes % (manual) 17 (10.0-50.0); Monocytes % (manual) 14 (0-12)
[2023-01-20] MEDS: cefTRIAXone 1GM/50ML D5W 50 ML IV SCH (20:26)
[2023-01-20] MEDS: traMADol HCL 50 MG TAB PO PRN (23:12)
[2023-01-21 05:00] VITALS: BP 106/52
[2023-01-21 05:44] LABS: Hematocrit 20.4 % (41.0-53.0); Mean Corpuscular Hgb Conc. 34.4 g/dL (32.0-36.0); Red Blood Cells 2.19 10^6/uL (4.5-5.90)
[2023-01-21 05:47] LABS: Mean Corpuscular Hemoglobin 32.1 pg (28.0-32.0); Mean Corpuscular Volume 93.2 fL (80.0-100.0); Red Cell Distribution Width 16.9 % (11.8-14.3); White Blood Cell 4.6 10^3/uL (4.4-10.8)
[2023-01-21 05:58] LABS: Potassium 4.4 mmol/L (3.5-5.1)
[2023-01-21] MEDS: GABAPENTIN 300 MG CAP PO SCH ×3 (06:03→20:59)
[2023-01-21 06:04] LABS: Basophils % (manual) 0 (0.0-2.0); Blast Cells 0; Metamyelocytes % 0; Myelocytes % 0; Promyelocytes % 0; Reactive Lymphocytes 0
[2023-01-21 06:05] LABS: BUN/Creatinine Ratio 23.7; Calcium 7.7 mg/dL (8.5-10.1)
[2023-01-21 09:00] VITALS: BP 111/65
[2023-01-21] MEDS: PANTOPRAZOLE 40 MG TAB PO SCH (09:09)
[2023-01-21] MEDS: rifAXIMin 550 MG TAB PO SCH ×2 (09:09→20:59)
[2023-01-21] MEDS: CHOLECALCIFEROL (VITD3) 2,000 UNIT CAP/TAB PO SCH (09:10)
[2023-01-21] MEDS: cefTRIAXone 1GM/50ML D5W 50 ML IV SCH (09:10)
[2023-01-21] MEDS: traMADol HCL 50 MG TAB PO PRN ×2 (09:10→20:59)
[2023-01-21] MEDS: ALBUMIN 25% 100 ML IV SCH ×2 (10:40→20:58)
[2023-01-21 11:34] LABS: Band Neutrophils % (manual) 1; Eosinophils % (manual) 5 (0-7); Lymphocytes % (manual) 14 (10.0-50.0)
[2023-01-21 11:35] LABS: Monocytes % (manual) 13 (0-12)
[2023-01-21 13:00] VITALS: BP 107/64
[2023-01-21] MEDS: FUROSEMIDE 20 MG/2 ML VIAL IV SCH ×2 (13:11→22:18)
[2023-01-21 17:00] VITALS: BP 93/60
[2023-01-21 22:00] VITALS: BP 113/67
[2023-01-22 05:00] VITALS: BP 109/56
[2023-01-22] MEDS: GABAPENTIN 300 MG CAP PO SCH ×3 (05:42→22:56)
[2023-01-22 08:33] VITALS: BP 118/62
[2023-01-22] MEDS: cefTRIAXone 1GM/50ML D5W 50 ML IV SCH (10:57)
[2023-01-22] MEDS: CHOLECALCIFEROL (VITD3) 2,000 UNIT CAP/TAB PO SCH (10:58)
[2023-01-22] MEDS: FUROSEMIDE 20 MG/2 ML VIAL IV SCH (10:58)
[2023-01-22] MEDS: PANTOPRAZOLE 40 MG TAB PO SCH (10:58)
[2023-01-22] MEDS: rifAXIMin 550 MG TAB PO SCH ×2 (10:58→22:56)
[2023-01-22] MEDS: ALBUMIN 25% 100 ML IV SCH ×2 (11:53→21:45)
[2023-01-22 12:49] VITALS: BP 116/62
[2023-01-22] MEDS ORDERED: MEROPENEM 1GM/NS 100ml AE IV SCH (16:00)
[2023-01-22 17:35] VITALS: BP 109/56
[2023-01-22] MEDS: MEROPENEM 1GM IVPB 50 ML IV SCH ×2 (18:15→20:55)
[2023-01-22 22:00] VITALS: BP 104/58
[2023-01-22] MEDS: traMADol HCL 50 MG TAB PO PRN (22:56)
[2023-01-23] MEDS: FUROSEMIDE 20 MG/2 ML VIAL IV SCH ×2 (00:44→12:36)
[2023-01-23 05:00] VITALS: BP 113/59
[2023-01-23] MEDS: GABAPENTIN 300 MG CAP PO SCH ×3 (06:11→21:26)
[2023-01-23] MEDS: MEROPENEM 1GM IVPB 50 ML IV SCH ×2 (08:32→17:37)
[2023-01-23] MEDS: rifAXIMin 550 MG TAB PO SCH ×2 (08:32→21:26)
[2023-01-23] MEDS: PANTOPRAZOLE 40 MG TAB PO SCH (08:32)
[2023-01-23] MEDS: CHOLECALCIFEROL (VITD3) 2,000 UNIT CAP/TAB PO SCH (08:32)
[2023-01-23 09:22] VITALS: BP 106/54
[2023-01-23] MEDS: ALBUMIN 25% 100 ML IV SCH ×2 (09:52→21:27)
[2023-01-23 12:53] VITALS: BP 103/53
[2023-01-23 14:23] LABS: White Blood Cell 5.2 10^3/uL (4.4-10.8)
[2023-01-23 14:25] LABS: Hematocrit 20.9 % (41.0-53.0); Hemoglobin 7.2 g/dL (13.5-17.5); Mean Corpuscular Hemoglobin 31.9 pg (28.0-32.0); Mean Corpuscular Hgb Conc. 34.3 g/dL (32.0-36.0); Mean Corpuscular Volume 93.2 fL (80.0-100.0); Red Blood Cells 2.25 10^6/uL (4.5-5.90); Red Cell Distribution Width 18.3 % (11.8-14.3)
[2023-01-23 14:27] LABS: Band Neutrophils % (manual) 0; Basophils % (manual) 0 (0.0-2.0); Blast Cells 0; Metamyelocytes % 0; Myelocytes % 0; Promyelocytes % 0; Reactive Lymphocytes 0
[2023-01-23 14:30] LABS: BUN/Creatinine Ratio 26.8 (10.0-20.0); Calcium 7.8 mg/dL (8.5-10.1); Potassium 3.9 mmol/L (3.5-5.1)
[2023-01-23 16:19] LABS: Eosinophils % (manual) 3 (0-7); Lymphocytes % (manual) 8 (10.0-50.0); Monocytes % (manual) 17 (0-12)
[2023-01-23 17:11] VITALS: BP 101/60
[2023-01-23 22:00] VITALS: BP 123/52
[2023-01-24] MEDS: FUROSEMIDE 20 MG/2 ML VIAL IV SCH ×3 (00:22→23:50)
[2023-01-24] MEDS: MEROPENEM 1GM IVPB 50 ML IV SCH ×3 (00:24→16:41)
[2023-01-24 05:00] VITALS: BP 110/56
[2023-01-24] MEDS: SUCRALFATE 1 GM/10 ML ORAL SUSP PO SCH ×4 (06:18→22:15)
[2023-01-24] MEDS: GABAPENTIN 300 MG CAP PO SCH ×3 (06:18→22:15)
[2023-01-24 08:00] VITALS: BP 109/54
[2023-01-24] MEDS: traMADol HCL 50 MG TAB PO PRN ×2 (08:24→16:42)
[2023-01-24] MEDS: ALBUMIN 25% 100 ML IV SCH ×2 (09:44→22:15)
[2023-01-24] MEDS: CHOLECALCIFEROL (VITD3) 2,000 UNIT CAP/TAB PO SCH (09:51)
[2023-01-24] MEDS: PANTOPRAZOLE 40 MG TAB PO SCH (09:51)
[2023-01-24] MEDS: rifAXIMin 550 MG TAB PO SCH ×2 (09:57→22:15)
[2023-01-24 12:00] VITALS: BP 117/58
[2023-01-24 16:00] VITALS: BP 110/58
[2023-01-24 22:00] VITALS: BP 110/58
[2023-01-25] MEDS: MEROPENEM 1GM IVPB 50 ML IV SCH ×2 (01:16→09:42)
[2023-01-25 05:00] VITALS: BP 109/55
[2023-01-25] MEDS: GABAPENTIN 300 MG CAP PO SCH ×3 (06:19→21:49)
[2023-01-25] MEDS: SUCRALFATE 1 GM/10 ML ORAL SUSP PO SCH ×4 (06:20→21:49)
[2023-01-25 08:05] VITALS: BP 100/53
[2023-01-25] MEDS: CHOLECALCIFEROL (VITD3) 2,000 UNIT CAP/TAB PO SCH (09:37)
[2023-01-25] MEDS: rifAXIMin 550 MG TAB PO SCH ×2 (09:37→21:49)
[2023-01-25] MEDS: FUROSEMIDE 20 MG/2 ML VIAL IV SCH ×2 (09:40→23:56)
[2023-01-25] MEDS: ALBUMIN 25% 100 ML IV SCH ×2 (09:41→20:44)
[2023-01-25] MEDS: PANTOPRAZOLE 40 MG TAB PO SCH (09:42)
[2023-01-25] MEDS: traMADol HCL 50 MG TAB PO PRN ×2 (09:59→20:44)
[2023-01-25 12:05] VITALS: BP 99/56
[2023-01-25 12:25] LABS: Calcium 7.9 mg/dL (8.5-10.1); Potassium 3.7 mmol/L (3.5-5.1)
[2023-01-25 12:27] LABS: BUN/Creatinine Ratio 29.7 (10.0-20.0)
[2023-01-25 12:28] LABS: Hematocrit 21.2 % (41.0-53.0); Hemoglobin 7.2 g/dL (13.5-17.5); Mean Corpuscular Hemoglobin 32.4 pg (28.0-32.0); Mean Corpuscular Hgb Conc. 34.2 g/dL (32.0-36.0); Mean Corpuscular Volume 94.7 fL (80.0-100.0); Red Blood Cells 2.24 10^6/uL (4.5-5.90); Red Cell Distribution Width 18.7 % (11.8-14.3); White Blood Cell 5.1 10^3/uL (4.4-10.8)
[2023-01-25 12:31] LABS: Basophils % (manual) 0 (0.0-2.0); Blast Cells 0; Metamyelocytes % 0; Myelocytes % 0; Promyelocytes % 0; Reactive Lymphocytes 0
[2023-01-25 13:19] LABS: Band Neutrophils % (manual) 3; Eosinophils % (manual) 4 (0-7); Lymphocytes % (manual) 18 (10.0-50.0); Monocytes % (manual) 15 (0-12)
[2023-01-25 16:00] VITALS: BP 97/54
[2023-01-25] MEDS ORDERED: ERTAPENEM SOD INJ 1 GM in SODIUM CHL 0.9% 50 ML IV ONE (21:00)
[2023-01-25 22:00] VITALS: BP 103/58
[2023-01-26 05:00] VITALS: BP 104/60
[2023-01-26] MEDS: GABAPENTIN 300 MG CAP PO SCH ×3 (06:30→22:39)
[2023-01-26] MEDS: SUCRALFATE 1 GM/10 ML ORAL SUSP PO SCH ×4 (06:30→22:39)
[2023-01-26 07:30] VITALS: BP 103/58
[2023-01-26 08:00] VITALS: BP 101/55
[2023-01-26] MEDS: ALBUMIN 25% 100 ML IV SCH ×2 (08:40→22:39)
[2023-01-26] MEDS: CHOLECALCIFEROL (VITD3) 2,000 UNIT CAP/TAB PO SCH (08:41)
[2023-01-26] MEDS: rifAXIMin 550 MG TAB PO SCH ×2 (08:41→22:39)
[2023-01-26] MEDS: PANTOPRAZOLE 40 MG TAB PO SCH (08:41)
[2023-01-26 12:00] VITALS: BP 99/58
[2023-01-26] MEDS: SPIRONOLACTONE 25 MG TAB PO SCH (12:18)
[2023-01-26] MEDS: FUROSEMIDE 20 MG/2 ML VIAL IV SCH ×2 (12:18→23:25)
[2023-01-26] MEDS: ERTAPENEM SOD INJ 1 GM in SODIUM CHL 0.9% 50 ML IV SCH (15:20)
[2023-01-26 16:05] VITALS: BP 95/53
[2023-01-26 22:00] VITALS: BP 114/68
[2023-01-26] MEDS: traMADol HCL 50 MG TAB PO PRN (23:25)
[2023-01-27 05:00] VITALS: BP 105/53
[2023-01-27] MEDS: GABAPENTIN 300 MG CAP PO SCH ×3 (05:50→21:57)
[2023-01-27] MEDS: SUCRALFATE 1 GM/10 ML ORAL SUSP PO SCH ×4 (06:15→21:57)
[2023-01-27 07:30] VITALS: BP 124/64
[2023-01-27 08:47] VITALS: BP 108/82
[2023-01-27] MEDS: SPIRONOLACTONE 25 MG TAB PO SCH (09:52)
[2023-01-27] MEDS: CHOLECALCIFEROL (VITD3) 2,000 UNIT CAP/TAB PO SCH (09:53)
[2023-01-27] MEDS: PANTOPRAZOLE 40 MG TAB PO SCH (09:53)
[2023-01-27] MEDS: rifAXIMin 550 MG TAB PO SCH ×2 (09:54→21:57)
[2023-01-27] MEDS: ERTAPENEM SOD INJ 1 GM in SODIUM CHL 0.9% 50 ML IV SCH (09:54)
[2023-01-27] MEDS: traMADol HCL 50 MG TAB PO PRN (09:55)
[2023-01-27] MEDS: ALBUMIN 25% 100 ML IV SCH ×2 (11:07→21:58)
[2023-01-27] MEDS: FUROSEMIDE 20 MG/2 ML VIAL IV SCH (11:31)
[2023-01-27 12:56] VITALS: BP 100/60
[2023-01-27 17:00] VITALS: BP 104/58
[2023-01-27 22:00] VITALS: BP 117/68
[2023-01-28] MEDS: FUROSEMIDE 20 MG/2 ML VIAL IV SCH ×3 (00:21→23:52)
[2023-01-28 05:00] VITALS: BP 96/53
[2023-01-28] MEDS: GABAPENTIN 300 MG CAP PO SCH ×3 (05:53→22:13)
[2023-01-28] MEDS: SUCRALFATE 1 GM/10 ML ORAL SUSP PO SCH ×4 (06:18→22:13)
[2023-01-28 08:00] VITALS: BP 104/52
[2023-01-28 09:00] VITALS: BP 104/54
[2023-01-28] MEDS: ALBUMIN 25% 100 ML IV SCH ×2 (10:22→22:14)
[2023-01-28] MEDS: SPIRONOLACTONE 25 MG TAB PO SCH (10:42)
[2023-01-28] MEDS: traMADol HCL 50 MG TAB PO PRN (10:42)
[2023-01-28] MEDS: CHOLECALCIFEROL (VITD3) 2,000 UNIT CAP/TAB PO SCH (10:42)
[2023-01-28] MEDS: rifAXIMin 550 MG TAB PO SCH (10:42)
[2023-01-28] MEDS: PANTOPRAZOLE 40 MG TAB PO SCH (10:42)
[2023-01-28 13:00] VITALS: BP 99/47
[2023-01-28 13:32] LABS: BUN/Creatinine Ratio 24.4 (10.0-20.0); Calcium 8.2 mg/dL (8.5-10.1); Potassium 3.8 mmol/L (3.5-5.1)
[2023-01-28] MEDS: ERTAPENEM SOD INJ 1 GM in SODIUM CHL 0.9% 50 ML IV SCH (16:20)
[2023-01-28 17:04] VITALS: BP 108/58
[2023-01-28 22:00] VITALS: BP 105/50
[2023-01-29] VITALS (7 sets, daily range): BP systolic 98–109; BP diastolic 47–57
[2023-01-29] MEDS: GABAPENTIN 300 MG CAP PO SCH ×3 (05:36→22:15)
[2023-01-29] MEDS: SUCRALFATE 1 GM/10 ML ORAL SUSP PO SCH ×4 (06:35→22:15)
[2023-01-29] MEDS: SPIRONOLACTONE 25 MG TAB PO SCH (10:19)
[2023-01-29] MEDS: ALBUMIN 25% 100 ML IV SCH ×2 (10:19→22:16)
[2023-01-29] MEDS: CHOLECALCIFEROL (VITD3) 2,000 UNIT CAP/TAB PO SCH (10:20)
[2023-01-29] MEDS: PANTOPRAZOLE 40 MG TAB PO SCH (10:20)
[2023-01-29] MEDS: FUROSEMIDE 20 MG/2 ML VIAL IV SCH ×2 (11:37→23:45)
[2023-01-29] MEDS: ERTAPENEM SOD INJ 1 GM in SODIUM CHL 0.9% 50 ML IV SCH (12:32)
[2023-01-30 05:00] VITALS: BP 102/54
[2023-01-30] MEDS: GABAPENTIN 300 MG CAP PO SCH ×3 (06:57→21:52)
[2023-01-30] MEDS: SUCRALFATE 1 GM/10 ML ORAL SUSP PO SCH ×4 (06:57→21:52)
[2023-01-30 09:37] VITALS: BP 116/58
[2023-01-30] MEDS: ALBUMIN 25% 100 ML IV SCH ×2 (12:26→22:02)
[2023-01-30] MEDS: PANTOPRAZOLE 40 MG TAB PO SCH (12:27)
[2023-01-30] MEDS: CHOLECALCIFEROL (VITD3) 2,000 UNIT CAP/TAB PO SCH (12:27)
[2023-01-30] MEDS: SPIRONOLACTONE 25 MG TAB PO SCH (12:27)
[2023-01-30 13:06] VITALS: BP 103/55
[2023-01-30] MEDS: ERTAPENEM SOD INJ 1 GM in SODIUM CHL 0.9% 50 ML IV SCH (15:39)
[2023-01-30] MEDS: FUROSEMIDE 20 MG/2 ML VIAL IV SCH (15:39)
[2023-01-30 16:37] VITALS: BP 105/48
[2023-01-30 22:00] VITALS: BP 105/55
[2023-01-31] MEDS: FUROSEMIDE 20 MG/2 ML VIAL IV SCH ×2 (00:30→13:04)
[2023-01-31 05:00] VITALS: BP 103/57
[2023-01-31] MEDS: SUCRALFATE 1 GM/10 ML ORAL SUSP PO SCH ×4 (06:35→23:55)
[2023-01-31] MEDS: GABAPENTIN 300 MG CAP PO SCH ×3 (06:35→23:56)
[2023-01-31 08:40] VITALS: BP 104/55
[2023-01-31] MEDS: CHOLECALCIFEROL (VITD3) 2,000 UNIT CAP/TAB PO SCH (09:29)
[2023-01-31] MEDS: PANTOPRAZOLE 40 MG TAB PO SCH (09:29)
[2023-01-31] MEDS: SPIRONOLACTONE 25 MG TAB PO SCH (09:29)
[2023-01-31] MEDS: ALBUMIN 25% 100 ML IV SCH ×2 (09:30→23:57)
[2023-01-31] MEDS: ERTAPENEM SOD INJ 1 GM in SODIUM CHL 0.9% 50 ML IV SCH (13:03)
[2023-01-31 13:52] VITALS: BP 103/43
[2023-01-31 17:38] VITALS: BP 118/56
[2023-01-31 22:00] VITALS: BP 100/58
[2023-02-01] MEDS: FUROSEMIDE 20 MG/2 ML VIAL IV SCH ×2 (01:16→11:45)
[2023-02-01 05:00] VITALS: BP 105/50
[2023-02-01] MEDS: SUCRALFATE 1 GM/10 ML ORAL SUSP PO SCH ×2 (06:47→11:30)
[2023-02-01] MEDS: GABAPENTIN 300 MG CAP PO SCH (06:47)
[2023-02-01 08:46] VITALS: BP 102/49
[2023-02-01] MEDS: PANTOPRAZOLE 40 MG TAB PO SCH (10:00)
[2023-02-01] MEDS: CHOLECALCIFEROL (VITD3) 2,000 UNIT CAP/TAB PO SCH (10:00)
[2023-02-01] MEDS: ALBUMIN 25% 100 ML IV SCH (10:00)
[2023-02-01] MEDS: SPIRONOLACTONE 25 MG TAB PO SCH (10:00)
[2023-02-01 13:20] VITALS: BP 102/56
[2023-02-01] MEDS: ERTAPENEM SOD INJ 1 GM in SODIUM CHL 0.9% 50 ML IV SCH (13:20)
== END 2023-02-01 16:41 | disposition home health service (06) | DRG 433 ==
LOC: EDBD 02:12 → ER 02:12 → OVERFLOW 09:05 → EAST 16:06
PROVIDERS: ADMIT Nurse Practitioner Family; ATTEND Internal Medicine
PROC: 0W9G3ZZ Drainage of Peritoneal Cavity, Percutaneous Approach (ICD-10-PCS; principal; 2023-01-17)
PROC: 05HA33Z Insertion of Infusion Device into Left Brachial Vein, Percutaneous Approach (ICD-10-PCS; 2023-01-26)
PROC: B54NZZA Ultrasonography of Left Upper Extremity Veins, Guidance (ICD-10-PCS; 2023-01-26)
DX: K70.31 Alcoholic cirrhosis of liver with ascites (principal); D61.818 Other pancytopenia; N39.0 Urinary tract infection, site not specified; D68.9 Coagulation defect, unspecified; E87.1 Hypo-osmolality and hyponatremia; Z16.12 Extended spectrum beta lactamase (ESBL) resistance; K76.6 Portal hypertension; E46 Unspecified protein-calorie malnutrition; Z68.44 Body mass index [BMI] 60.0-69.9, adult; R04.0 Epistaxis; E66.01 Morbid (severe) obesity due to excess calories; E83.51 Hypocalcemia; E86.0 Dehydration; E88.09 Other disorders of plasma-protein metabolism, not elsewhere classified; N50.89 Other specified disorders of the male genital organs; I11.0 Hypertensive heart disease with heart failure; B96.20 Unspecified Escherichia coli [E. coli] as the cause of diseases classified elsewhere; E11.9 Type 2 diabetes mellitus without complications; F10.20 Alcohol dependence, uncomplicated; B96.4 Proteus (mirabilis) (morganii) as the cause of diseases classified elsewhere; Z20.822 Contact with and (suspected) exposure to COVID-19; I50.9 Heart failure, unspecified; F41.9 Anxiety disorder, unspecified; K31.89 Other diseases of stomach and duodenum; R14.0 Abdominal distension (gaseous); R19.5 Other fecal abnormalities; Z80.1 Family history of malignant neoplasm of trachea, bronchus and lung; Z82.49 Family history of ischemic heart disease and other diseases of the circulatory system; Z83.3 Family history of diabetes mellitus
CPT/HCPCS: 36415; 71045; 74176; 76705; 76942; 80048; 80053; 80061; 81001; 82040; 82270; 83036; 83880; 83986; 84443; 85007; 85025; 85027; 85610; 85730; 86850; 86900; 86901; 87086; 87205; 87426; 89051; 96374; 97110; 97163; 97530; C9113; G0378; J0696; J1335; J2185; P9047

== ENCOUNTER 2023-03-26 23:18 | Inpatient (IN) | payer SELFPAY ==
[~2023-03-26] VITALS: Ht 188 cm; Wt 201.3 kg
[~2023-03-26 23:18] MED LIST changes: -SPIR25TA PO
[2023-03-27 00:25] LABS: Basophils # (auto) 0 10 ^3/uL (0-0.2); Eosinophils # (auto) 0.2 10 ^3/uL (0-0.8); Monocytes # (auto) 1.2 10 ^3/uL (0-1.3); Nucleated Red Blood Cells % 0.1 %
[2023-03-27 00:26] LABS: Basophils % (auto) 0.1 % (0.0-2.0); Eosinophils % (auto) 1.6 % (0.0-7.0); Hematocrit 24.6 % (41.0-53.0); Hemoglobin 8.2 g/dL (13.5-17.5); Mean Corpuscular Hemoglobin 30.7 pg (28.0-32.0); Mean Corpuscular Hgb Conc. 33.5 g/dL (32.0-36.0); Mean Corpuscular Volume 91.9 fL (80.0-100.0); Monocytes % (auto) 11.2 % (0.0-12.0); Neutrophils # (auto) 8.6 10 ^3/uL (1.6-8.6); Neutrophils % (auto) 78.1 % (37.0-80.0); Red Blood Cells 2.68 10^6/uL (4.5-5.90)
[2023-03-27 00:31] LABS: Albumin 1.8 g/dL (3.4-5.0); BUN/Creatinine Ratio 10.6 (10.0-20.0); Calcium 7.8 mg/dL (8.5-10.1); Potassium 3.2 mmol/L (3.5-5.1)
[2023-03-27 00:33] LABS: INR 2.49 (0.9-1.15); Partial Thromboplastin Time 62.4 sec (24.6-33.4)
[2023-03-27 00:34] LABS: Bilirubin, Total 9.2 mg/dL (0.2-1.0); Total Protein 6.1 g/dL (6.4-8.2)
[2023-03-27] MEDS ORDERED: ONDANSETRON HCL 4 MG/2 ML VIAL IV PRN (07:15)
[2023-03-27] MEDS ORDERED: POTASSIUM CHL 20 Meq TABLET PO ONE (07:15)
[2023-03-27] MEDS: PANTOPRAZOLE 40 MG TAB PO SCH (10:11)
[2023-03-27] MEDS: rifAXIMin 550 MG TAB PO SCH ×2 (10:11→23:01)
[2023-03-27] MEDS: LACTULOSE 20Gm/30ML SOLN PO SCH ×2 (10:11→23:00)
[2023-03-27] MEDS: ALBUMIN 25% 100 ML IV SCH ×2 (11:45→14:06)
[2023-03-27] MEDS: FUROSEMIDE 40 MG TAB PO SCH (18:40)
[2023-03-28 00:33] VITALS: BP 107/57
[2023-03-28 05:00] VITALS: BP 125/63
[2023-03-28] MEDS ORDERED: SPIR50TA2 (05:11)
[2023-03-28] MEDS ORDERED: TRAM-711 PO (05:11)
[2023-03-28] MEDS ORDERED: GABAPENTIN 100 MG CAP PO ONE (06:00)
[2023-03-28] MEDS: FUROSEMIDE 40 MG TAB PO SCH ×2 (06:06→18:14)
[2023-03-28 06:23] LABS: Potassium 3.5 mmol/L (3.5-5.1)
[2023-03-28 06:33] LABS: BUN/Creatinine Ratio 11.4 (10.0-20.0); Calcium 7.6 mg/dL (8.5-10.1); Total Protein 5.5 g/dL (6.4-8.2)
[2023-03-28 06:36] LABS: Basophils # (auto) 0 10 ^3/uL (0-0.2); Eosinophils # (auto) 0.1 10 ^3/uL (0-0.8); Hemoglobin 8.2 g/dL (13.5-17.5); Lymphocytes # (auto) 0.8 10 ^3/uL (0.4-5.4); Mean Corpuscular Hemoglobin 30.8 pg (28.0-32.0); Mean Corpuscular Hgb Conc. 33.6 g/dL (32.0-36.0); Monocytes # (auto) 0.8 10 ^3/uL (0-1.3); Monocytes % (auto) 12.2 % (0.0-12.0); Neutrophils # (auto) 4.9 10 ^3/uL (1.6-8.6); White Blood Cell 6.7 10^3/uL (4.4-10.8)
[2023-03-28 06:38] LABS: Basophils % (auto) 0.3 % (0.0-2.0); Eosinophils % (auto) 1.9 % (0.0-7.0); Hematocrit 24.3 % (41.0-53.0); Mean Corpuscular Volume 91.8 fL (80.0-100.0); Neutrophils % (auto) 73.6 % (37.0-80.0); Nucleated Red Blood Cells % 0.1 %; Red Blood Cells 2.65 10^6/uL (4.5-5.90); Red Cell Distribution Width 16.8 % (11.8-14.3)
[2023-03-28 09:00] VITALS: BP 116/56
[2023-03-28] MEDS: LACTULOSE 20Gm/30ML SOLN PO SCH ×3 (10:00→21:25)
[2023-03-28] MEDS: rifAXIMin 550 MG TAB PO SCH ×2 (10:10→21:25)
[2023-03-28] MEDS: PANTOPRAZOLE 40 MG TAB PO SCH (10:11)
[2023-03-28 13:00] VITALS: BP 109/61
[2023-03-28 17:00] VITALS: BP 103/64
[2023-03-28 22:00] VITALS: BP 119/54
[2023-03-29 05:00] VITALS: BP 109/64
[2023-03-29] MEDS: FUROSEMIDE 40 MG TAB PO SCH (06:25)
[2023-03-29] MEDS: rifAXIMin 550 MG TAB PO SCH (08:46)
[2023-03-29] MEDS: PANTOPRAZOLE 40 MG TAB PO SCH (08:46)
[2023-03-29] MEDS: LACTULOSE 20Gm/30ML SOLN PO SCH (08:46)
[2023-03-29 08:49] VITALS: BP 115/67
[2023-03-29 12:10] VITALS: BP 110/60
[2023-03-29 13:00] VITALS: BP 110/60
== END 2023-03-29 17:50 | disposition home or self-care (01) | DRG 433 ==
LOC: EDBD 23:18 → ER 23:18 → OVERFLOW 03-27 07:10 → WEST WING 03-27 22:10
PROVIDERS: ADMIT Nurse Practitioner; ATTEND Internal Medicine
PROC: 0W9G30Z Drainage of Peritoneal Cavity with Drainage Device, Percutaneous Approach (ICD-10-PCS; principal; 2023-03-27)
DX: K70.31 Alcoholic cirrhosis of liver with ascites (principal); D68.9 Coagulation defect, unspecified; E87.1 Hypo-osmolality and hyponatremia; Z68.43 Body mass index [BMI] 50.0-59.9, adult; K76.82 Hepatic encephalopathy; F10.20 Alcohol dependence, uncomplicated; E87.70 Fluid overload, unspecified; K70.40 Alcoholic hepatic failure without coma; E66.01 Morbid (severe) obesity due to excess calories; I10 Essential (primary) hypertension; Z83.3 Family history of diabetes mellitus; Z79.899 Other long term (current) drug therapy
CPT/HCPCS: 36415; 76705; 76942; 80053; 82140; 83986; 84484; 85025; 85610; 85730; 87205; 89051; 93005; G0378; P9047

== ENCOUNTER 2023-03-31 22:17 | Inpatient (IN) | payer BC, MEDICAID ==
[~2023-03-31] VITALS: Ht 185.4 cm; Wt 184.5 kg
[~2023-03-31 22:17] MED LIST changes: +GABA-1250 PO; -GABA300C10 PO; +SPIR50TA2; +TRAM-711 PO
[2023-03-31 22:32] VITALS: PULSE 98; RESP 20; O2SAT 95
[2023-03-31] MEDS ORDERED: ACCU-CHEK COMFORT CURVE STRIP VI ONE (22:45)
[2023-03-31 23:01] LABS: Hemoglobin 8.8 g/dL (13.5-17.5); Mean Corpuscular Hemoglobin 30.8 pg (28.0-32.0); Mean Corpuscular Hgb Conc. 33.8 g/dL (32.0-36.0); Mean Corpuscular Volume 90.9 fL (80.0-100.0); Red Blood Cells 2.86 10^6/uL (4.5-5.90); Red Cell Distribution Width 17.1 % (11.8-14.3); White Blood Cell 5.6 10^3/uL (4.4-10.8)
[2023-03-31 23:13] LABS: Band Neutrophils % (manual) 0; Basophils % (manual) 0 (0.0-2.0); Blast Cells 0; Metamyelocytes % 0; Myelocytes % 0; Promyelocytes % 0; Reactive Lymphocytes 0
[2023-03-31 23:17] LABS: Albumin 1.8 g/dL (3.4-5.0); Calcium 8.1 mg/dL (8.5-10.1); Potassium 3.4 mmol/L (3.5-5.1)
[2023-03-31 23:19] LABS: BUN/Creatinine Ratio 14.3 (10.0-20.0)
[2023-03-31 23:22] LABS: Bilirubin, Total 7.9 mg/dL (0.2-1.0); Total Protein 6.1 g/dL (6.4-8.2)
[2023-03-31 23:23] LABS: Lactic Acid w/Reflex 2.5 mmol/L (0.4-2.0)
[2023-03-31 23:35] LABS: Eosinophils % (manual) 1 (0-7); Lymphocytes % (manual) 13 (10.0-50.0); Monocytes % (manual) 16 (0-12)
[2023-04-01 00:33] LABS: Urine Bacteria NONE SEEN /hpf (None Seen); Urine Blood Negative /uL (Negative); Urine Specific Gravity 1.007 (1.001-1.035); Urine WBC <1 /hpf (0 - 3)
[2023-04-01 00:57] LABS: Alcohol, Urine < 3.0 mg/dL (0-10); Amphetamine Screen, Urine NEGATIVE (NEGATIVE); Cannabinoid Screen, Urine NEGATIVE (NEGATIVE); Cocaine Screen, Urine NEGATIVE (NEGATIVE)
[2023-04-01 00:59] LABS: Barbiturate Scree,Urine NEGATIVE (NEGATIVE); Benzodiazephine Screen, Urine NEGATIVE (NEGATIVE); Opiate Scree,Urine NEGATIVE (NEGATIVE); Phencyclidine Screen, Urine NEGATIVE (NEGATIVE)
[2023-04-01 07:38] VITALS: PULSE 85; RESP 11; O2SAT 99
[2023-04-01] MEDS ORDERED: LACTULOSE 20Gm/30ML SOLN PO ONE (11:00)
[2023-04-01] MEDS ORDERED: POTASSIUM CHL 20 Meq TABLET PO ONE (12:30)
[2023-04-01] MEDS ORDERED: NITROGLYCERIN 0.4 MG SL TAB SL PRN (12:30)
[2023-04-01] MEDS ORDERED: MORPHINE SULFATE INJ 2 MG/ml SYRG IV PRN ×2 (12:30)
[2023-04-01] MEDS: SODIUM CHLORIDE 0.9% 1,000 ML IV SCH (12:44)
[2023-04-01 17:00] VITALS: BP 108/53; PULSE 91; RESP 18; TEMP 97.7; O2SAT 97
[2023-04-01 20:00] VITALS: PULSE 90
[2023-04-01] MEDS: LACTULOSE 20Gm/30ML SOLN PO SCH (21:34)
[2023-04-01 22:00] VITALS: BP 114/61; PULSE 88; RESP 16; TEMP 97.5; O2SAT 97
[2023-04-02] VITALS (7 sets, daily range): BP systolic 97–109; BP diastolic 54–66; PULSE 80–90; RESP 18–20; TEMP 97.3–98.3; O2SAT 94–100
[2023-04-02] MEDS: SODIUM CHLORIDE 0.9% 1,000 ML IV SCH ×2 (01:50→04:44)
[2023-04-02 06:08] LABS: Albumin 1.8 g/dL (3.4-5.0); Calcium 7.7 mg/dL (8.5-10.1); Potassium 3.5 mmol/L (3.5-5.1)
[2023-04-02 06:13] LABS: BUN/Creatinine Ratio 14.9 (10.0-20.0); Total Protein 5.5 g/dL (6.4-8.2)
[2023-04-02 06:24] LABS: Red Blood Cells 2.42 10^6/uL (4.5-5.90)
[2023-04-02 06:30] LABS: Hematocrit 22.1 % (41.0-53.0); Hemoglobin 7.6 g/dL (13.5-17.5); Mean Corpuscular Hemoglobin 31.3 pg (28.0-32.0); Mean Corpuscular Hgb Conc. 34.2 g/dL (32.0-36.0); Mean Corpuscular Volume 91.5 fL (80.0-100.0); Red Cell Distribution Width 17.3 % (11.8-14.3); White Blood Cell 4.2 10^3/uL (4.4-10.8)
[2023-04-02 06:51] LABS: Band Neutrophils % (manual) 0; Basophils % (manual) 0 (0.0-2.0); Blast Cells 0; Metamyelocytes % 0; Myelocytes % 0; Promyelocytes % 0; Reactive Lymphocytes 0
[2023-04-02 08:45] LABS: Eosinophils % (manual) 1 (0-7); Lymphocytes % (manual) 21 (10.0-50.0); Monocytes % (manual) 17 (0-12)
[2023-04-02] MEDS: LACTULOSE 20Gm/30ML SOLN PO SCH (09:35)
[2023-04-02 15:37] LABS: INR 2.25 (0.9-1.15)
[2023-04-02] MEDS: FUROSEMIDE 40 MG/4 ML VIAL IV SCH (18:46)
[2023-04-03] VITALS (13 sets, daily range): BP systolic 106–121; BP diastolic 54–68; PULSE 60–95; RESP 16–22; TEMP 98.4–100.1; O2SAT 96–100
[2023-04-03] MEDS: SODIUM CHLORIDE 0.9% 1,000 ML IV SCH ×2 (03:58→17:50)
[2023-04-03] MEDS: FUROSEMIDE 40 MG/4 ML VIAL IV SCH ×2 (06:22→18:12)
[2023-04-03] MEDS: LACTULOSE 20Gm/30ML SOLN PO SCH (09:39)
[2023-04-03] MEDS ORDERED: PHYTONADIONE (VIT K)10 MG/ML 1ML VIAL SUBCUT ONE (10:00)
[2023-04-03] MEDS: GABAPENTIN 300 MG CAP PO SCH ×2 (14:51→22:27)
[2023-04-03] MEDS: traMADol HCL 50 MG TAB PO PRN (15:13)
[2023-04-04] VITALS (7 sets, daily range): BP systolic 98–119; BP diastolic 59–62; PULSE 67–85; RESP 18–22; TEMP 97.2–98.3; O2SAT 95–98
[2023-04-04] MEDS: traMADol HCL 50 MG TAB PO PRN ×2 (04:09→21:04)
[2023-04-04] MEDS: GABAPENTIN 300 MG CAP PO SCH ×3 (06:09→21:04)
[2023-04-04] MEDS: FUROSEMIDE 40 MG/4 ML VIAL IV SCH ×2 (06:09→18:06)
[2023-04-04 06:33] LABS: INR 1.04 (0.9-1.15); Partial Thromboplastin Time 27.7 sec (24.6-33.4)
[2023-04-04] MEDS: LACTULOSE 20Gm/30ML SOLN PO SCH (09:40)
[2023-04-04] MEDS: SODIUM CHLORIDE 0.9% 1,000 ML IV SCH (09:44)
[2023-04-04] MEDS: ALBUMIN 25% 100 ML IV SCH ×2 (15:15→16:12)
[2023-04-05] VITALS (7 sets, daily range): BP systolic 103–114; BP diastolic 59–63; PULSE 77–90; RESP 18–20; TEMP 97.9–98.7; O2SAT 96–99
[2023-04-05] MEDS: FUROSEMIDE 40 MG/4 ML VIAL IV SCH ×2 (06:20→17:39)
[2023-04-05] MEDS: GABAPENTIN 300 MG CAP PO SCH ×3 (06:20→21:25)
[2023-04-05] MEDS: LACTULOSE 20Gm/30ML SOLN PO SCH (09:45)
[2023-04-05] MEDS: traMADol HCL 50 MG TAB PO PRN ×2 (09:46→22:12)
[2023-04-06 05:00] VITALS: BP 107/59; PULSE 82; RESP 20; TEMP 98.4; O2SAT 95
[2023-04-06] MEDS: GABAPENTIN 300 MG CAP PO SCH ×3 (05:04→21:44)
[2023-04-06] MEDS: FUROSEMIDE 40 MG/4 ML VIAL IV SCH ×2 (05:05→17:39)
[2023-04-06 07:30] VITALS: PULSE 78; RESP 18; O2SAT 99
[2023-04-06 09:00] VITALS: BP 102/60; PULSE 77; RESP 18; TEMP 97.9; O2SAT 97
[2023-04-06] MEDS ORDERED: ALBUMIN 25% 50 ML IV ONE (10:00)
[2023-04-06] MEDS: LACTULOSE 20Gm/30ML SOLN PO SCH (11:12)
[2023-04-06] MEDS: traMADol HCL 50 MG TAB PO PRN ×2 (11:12→21:44)
[2023-04-06 13:20] VITALS: BP 105/47; PULSE 76; RESP 20; TEMP 98.4; O2SAT 97
[2023-04-06 17:12] VITALS: BP 107/57; PULSE 68; RESP 16; TEMP 98.5; O2SAT 100
[2023-04-06 20:00] VITALS: PULSE 86; RESP 17; O2SAT 99
[2023-04-07 05:00] VITALS: BP 138/70; PULSE 78; RESP 20; TEMP 98.7; O2SAT 20
[2023-04-07] MEDS: GABAPENTIN 300 MG CAP PO SCH ×3 (05:46→21:12)
[2023-04-07] MEDS: FUROSEMIDE 40 MG/4 ML VIAL IV SCH ×2 (05:47→17:19)
[2023-04-07 07:30] VITALS: PULSE 70; PULSE 90; RESP 18; O2SAT 97
[2023-04-07 09:00] VITALS: BP 103/64; PULSE 70; RESP 18; TEMP 97.9; O2SAT 98
[2023-04-07] MEDS: traMADol HCL 50 MG TAB PO PRN ×2 (09:41→21:12)
[2023-04-07] MEDS: LACTULOSE 20Gm/30ML SOLN PO SCH (09:41)
[2023-04-07 17:00] VITALS: BP 103/60; PULSE 80; RESP 20; TEMP 98; O2SAT 97
[2023-04-07 20:00] VITALS: PULSE 82; RESP 20; O2SAT 97
[2023-04-07 22:04] VITALS: BP 104/60; PULSE 85; RESP 20; TEMP 98.2; O2SAT 100
[2023-04-08] VITALS (8 sets, daily range): BP systolic 100–107; BP diastolic 59–74; PULSE 80–88; RESP 16–20; TEMP 97.9–98.5; O2SAT 95–97
[2023-04-08] MEDS: GABAPENTIN 300 MG CAP PO SCH ×3 (05:50→21:25)
[2023-04-08] MEDS: FUROSEMIDE 40 MG/4 ML VIAL IV SCH ×2 (05:50→18:07)
[2023-04-08] MEDS: LACTULOSE 20Gm/30ML SOLN PO SCH (10:36)
[2023-04-08] MEDS: traMADol HCL 50 MG TAB PO PRN ×2 (10:37→21:25)
[2023-04-08] MEDS ORDERED: cefTRIAXone 1GM/50ML D5W 50 ML IV ONE (12:30)
[2023-04-09 05:00] VITALS: BP 107/62; PULSE 84; RESP 95; TEMP 98.4; O2SAT 95
[2023-04-09] MEDS: FUROSEMIDE 40 MG/4 ML VIAL IV SCH (05:53)
[2023-04-09] MEDS: GABAPENTIN 300 MG CAP PO SCH ×2 (05:54→14:56)
[2023-04-09 07:45] VITALS: BP 103/53; PULSE 77; RESP 20; TEMP 98.1; O2SAT 96
[2023-04-09 08:11] VITALS: PULSE 83
[2023-04-09 09:00] VITALS: BP 103/53; PULSE 77; RESP 20; TEMP 98.1; O2SAT 96
[2023-04-09] MEDS ORDERED: cefTRIAXone 1GM/50ML D5W 50 ML IV SCH (09:00)
[2023-04-09] MEDS: LACTULOSE 20Gm/30ML SOLN PO SCH (10:06)
[2023-04-09] MEDS: traMADol HCL 50 MG TAB PO PRN (10:07)
[2023-04-09] MEDS ORDERED: GABA-1250 PO (10:23)
[2023-04-09] MEDS ORDERED: LACT10SO3 PO ×2 (10:23)
[2023-04-09] MEDS ORDERED: RIFA550T PO ×2 (10:23)
[2023-04-09] MEDS ORDERED: FURO40TA4 PO (10:23)
[2023-04-09] MEDS ORDERED: TRAM-711 PO ×2 (10:23)
[2023-04-09] MEDS ORDERED: CIPR-173 PO ×2 (10:23)
[2023-04-09] MEDS ORDERED: SPIR50TA2 PO (10:23)
[2023-04-09 10:43] VITALS: BP 103/53; PULSE 77; RESP 20; TEMP 98.1; O2SAT 96
[2023-04-09 10:52] LABS: INR 2.12 (0.9-1.15)
[2023-04-09 13:00] VITALS: BP 112/61; PULSE 75; RESP 20; TEMP 98.3; O2SAT 98
== END 2023-04-09 17:08 | disposition home or self-care (01) ==
LOC: EDBD 22:17 → ER 22:17 → TELE 04-01 12:35 → TELE-CENTR 04-01 15:40
PROVIDERS: ADMIT Registered Nurse; ATTEND Internal Medicine
PROC: 30233K1 Transfusion of Nonautologous Frozen Plasma into Peripheral Vein, Percutaneous Approach (ICD-10-PCS; 2023-04-03)
PROC: 0W9G3ZZ Drainage of Peritoneal Cavity, Percutaneous Approach (ICD-10-PCS; principal; 2023-04-04)
PROC: 0W9G3ZZ Drainage of Peritoneal Cavity, Percutaneous Approach (ICD-10-PCS; 2023-04-09)
DX: K74.60 Unspecified cirrhosis of liver (principal); E43 Unspecified severe protein-calorie malnutrition; E87.20 Acidosis, unspecified; K76.82 Hepatic encephalopathy; D69.6 Thrombocytopenia, unspecified; E72.4 Disorders of ornithine metabolism; K72.90 Hepatic failure, unspecified without coma; R18.8 Other ascites; Z68.43 Body mass index [BMI] 50.0-59.9, adult; F41.9 Anxiety disorder, unspecified; I11.0 Hypertensive heart disease with heart failure; E66.01 Morbid (severe) obesity due to excess calories; I50.9 Heart failure, unspecified; Z83.3 Family history of diabetes mellitus; Z80.1 Family history of malignant neoplasm of trachea, bronchus and lung; Z82.49 Family history of ischemic heart disease and other diseases of the circulatory system
CPT/HCPCS: 36415; 71045; 76705; 76942; 80053; 80307; 81001; 82140; 83605; 83880; 83986; 84484; 85007; 85027; 85379; 85610; 85730; 86850; 86900; 86901; 87081; 87205; 89051; 93970; 96360; G0378; J0696; J3430; P9047

== ENCOUNTER 2023-04-23 14:04 | Inpatient (IN) | payer SELFPAY ==
[~2023-04-23] VITALS: Ht 185.4 cm; Wt 196.9 kg
[~2023-04-23 14:04] MED LIST changes: +CIPR-173 PO; -SPIR50TA2; +SPIR50TA2 PO
[2023-04-23 15:00] LABS: Basophils # (auto) 0 10 ^3/uL (0-0.2); Basophils % (auto) 0.2 % (0.0-2.0); Eosinophils # (auto) 0.2 10 ^3/uL (0-0.8); Hemoglobin 7.5 g/dL (13.5-17.5); Monocytes # (auto) 1.8 10 ^3/uL (0-1.3); Neutrophils # (auto) 9.1 10 ^3/uL (1.6-8.6)
[2023-04-23 15:03] LABS: Eosinophils % (auto) 1.8 % (0.0-7.0); Hematocrit 21.8 % (41.0-53.0); Lymphocytes # (auto) 0.9 10 ^3/uL (0.4-5.4); Lymphocytes % (auto) 7.7 % (10.0-50.0); Mean Corpuscular Hemoglobin 30.1 pg (28.0-32.0); Mean Corpuscular Hgb Conc. 34.3 g/dL (32.0-36.0); Mean Corpuscular Volume 87.6 fL (80.0-100.0); Monocytes % (auto) 15.1 % (0.0-12.0); Neutrophils % (auto) 75.2 % (37.0-80.0); Red Blood Cells 2.49 10^6/uL (4.5-5.90); Red Cell Distribution Width 16.6 % (11.8-14.3)
[2023-04-23 15:15] LABS: INR 1.88 (0.9-1.15); Partial Thromboplastin Time 64.3 sec (24.6-33.4)
[2023-04-23 15:29] LABS: Albumin 1.5 g/dL (3.4-5.0); Anion Gap 9 (5-15); Blood Urea Nitrogen 43 mg/dL (7-18); Calcium 7.4 mg/dL (8.5-10.1); Carbon Dioxide 23 mmol/L (21-32); Chloride 85 mmol/L (98-107); Glucose 139 mg/dL (74-106); Lipase 734 U/L (73-393); Potassium 4.9 mmol/L (3.5-5.1)
[2023-04-23 15:31] LABS: Alanine Aminotransferase 27 U/L (16-61); Aspartate Aminotransferase 36 U/L (15-37); BUN/Creatinine Ratio 31.4 (10.0-20.0); GFR African American 72 mL/min; GFR Non-African American 59 mL/min
[2023-04-23 15:58] LABS: Alkaline Phosphatase 128 U/L (45-117); Bilirubin, Total 6.5 mg/dL (0.2-1.0); Total Protein 5.5 g/dL (6.4-8.2)
[2023-04-23 16:05] LABS: Sodium 117 mmol/L (136-145)
[2023-04-23] MEDS ORDERED: FUROSEMIDE 20 MG/2 ML VIAL IV ONE (20:30)
[2023-04-23] MEDS ORDERED: ONDANSETRON HCL 4 MG/2 ML VIAL IV PRN (20:30)
[2023-04-23] MEDS ORDERED: SODIUM CHL 3% 500 ML IV ONE (20:45)
[2023-04-23] MEDS: LACTULOSE 20Gm/30ML SOLN PO SCH (21:52)
[2023-04-23] MEDS: rifAXIMin 550 MG TAB PO SCH (21:52)
[2023-04-23] MEDS: traMADol HCL 50 MG TAB PO PRN (21:53)
[2023-04-23 22:43] LABS: Urine Bacteria FEW /hpf (None Seen); Urine Blood 2+ /uL (Negative); Urine Hyaline Cast FEW /lpf (0 - 2); Urine Mucus FEW (None Seen); Urine Specific Gravity 1.014 (1.001-1.035); Urine WBC 21 /hpf (0 - 3)
[2023-04-24] MEDS: traMADol HCL 50 MG TAB PO PRN (05:15)
[2023-04-24 06:20] LABS: Potassium 4.6 mmol/L (3.5-5.1)
[2023-04-24 06:32] LABS: Albumin 1.7 g/dL (3.4-5.0); BUN/Creatinine Ratio 33.3 (10.0-20.0); Bilirubin, Total 6.4 mg/dL (0.2-1.0); Calcium 7.3 mg/dL (8.5-10.1); Total Protein 5.6 g/dL (6.4-8.2)
[2023-04-24 06:58] LABS: Basophils # (auto) 0 10 ^3/uL (0-0.2); Eosinophils # (auto) 0.3 10 ^3/uL (0-0.8); Hematocrit 21.8 % (41.0-53.0); Neutrophils % (auto) 70.3 % (37.0-80.0)
[2023-04-24 07:00] LABS: Basophils % (auto) 0.3 % (0.0-2.0); Eosinophils % (auto) 2.9 % (0.0-7.0); Hemoglobin 7.5 g/dL (13.5-17.5); Lymphocytes % (auto) 10.5 % (10.0-50.0); Mean Corpuscular Hemoglobin 30.2 pg (28.0-32.0); Mean Corpuscular Hgb Conc. 34.6 g/dL (32.0-36.0); Mean Corpuscular Volume 87.2 fL (80.0-100.0); Monocytes # (auto) 1.5 10 ^3/uL (0-1.3); Neutrophils # (auto) 6.6 10 ^3/uL (1.6-8.6); Red Cell Distribution Width 16.7 % (11.8-14.3); White Blood Cell 9.4 10^3/uL (4.4-10.8)
[2023-04-24] MEDS: cefTRIAXone 1GM/50ML D5W 50 ML IV SCH (09:32)
[2023-04-24] MEDS: PANTOPRAZOLE 40 MG TAB PO SCH (11:07)
[2023-04-24] MEDS: rifAXIMin 550 MG TAB PO SCH ×2 (11:07→21:36)
[2023-04-24] MEDS: SPIRONOLACTONE 25 MG TAB PO SCH (11:08)
[2023-04-24] MEDS: LACTULOSE 20Gm/30ML SOLN PO SCH ×2 (11:08→21:36)
[2023-04-24 12:37] LABS: Alcohol, Urine < 3.0 mg/dL (0-10); Amphetamine Screen, Urine NEGATIVE (NEGATIVE); Barbiturate Scree,Urine NEGATIVE (NEGATIVE); Benzodiazephine Screen, Urine NEGATIVE (NEGATIVE); Cannabinoid Screen, Urine NEGATIVE (NEGATIVE); Cocaine Screen, Urine NEGATIVE (NEGATIVE); Opiate Scree,Urine NEGATIVE (NEGATIVE); Phencyclidine Screen, Urine NEGATIVE (NEGATIVE)
[2023-04-24 20:00] VITALS: BP 106/55
[2023-04-24 22:00] VITALS: BP 106/55
[2023-04-25] VITALS (11 sets, daily range): BP systolic 90–122; BP diastolic 34–61
[2023-04-25] MEDS: ALBUMIN 25% 100 ML IV SCH ×11 (01:00→19:25)
[2023-04-25] MEDS: cefTRIAXone 1GM/50ML D5W 50 ML IV SCH (01:03)
[2023-04-25 06:07] LABS: Hematocrit 18.8 % (41.0-53.0); Mean Corpuscular Hemoglobin 30.5 pg (28.0-32.0); Mean Corpuscular Hgb Conc. 34.7 g/dL (32.0-36.0); Mean Corpuscular Volume 87.8 fL (80.0-100.0); Red Blood Cells 2.14 10^6/uL (4.5-5.90); Red Cell Distribution Width 16.6 % (11.8-14.3); White Blood Cell 7.8 10^3/uL (4.4-10.8)
[2023-04-25 06:22] LABS: Potassium 5.4 mmol/L (3.5-5.1)
[2023-04-25 06:25] LABS: BUN/Creatinine Ratio 31.1 (10.0-20.0); Calcium 7.9 mg/dL (8.5-10.1)
[2023-04-25 06:31] LABS: Hemoglobin 6.5 g/dL (13.5-17.5)
[2023-04-25 06:34] LABS: Basophils % (manual) 0 (0.0-2.0); Blast Cells 0; Eosinophils % (manual) 0 (0-7); Metamyelocytes % 0; Myelocytes % 0; Promyelocytes % 0; Reactive Lymphocytes 0
[2023-04-25 07:41] LABS: Band Neutrophils % (manual) 1; Lymphocytes % (manual) 16 (10.0-50.0); Monocytes % (manual) 7 (0-12)
[2023-04-25] MEDS: LACTULOSE 20Gm/30ML SOLN PO SCH ×2 (10:00→21:14)
[2023-04-25] MEDS ORDERED: ALBUTEROL SULF 2.5 MG/0.5ML(0.5%) NEB SOLN NEB ONE (10:15)
[2023-04-25] MEDS ORDERED: FUROSEMIDE 20 MG/2 ML VIAL IV ONE (10:15)
[2023-04-25] MEDS ORDERED: SODIUM BICARBONATE 8.4% INJ 50ML SYRINGE IV ONE (10:15)
[2023-04-25] MEDS ORDERED: DEXTROSE (50%) 50ML SYRG IV ONE (10:15)
[2023-04-25] MEDS ORDERED: InsuLIN REG 1unit/0.01ml Soln (100units/ml) IV ONE (10:15)
[2023-04-25] MEDS: SPIRONOLACTONE 25 MG TAB PO SCH (11:06)
[2023-04-25] MEDS: rifAXIMin 550 MG TAB PO SCH ×2 (11:06→21:14)
[2023-04-25] MEDS: PANTOPRAZOLE 40 MG TAB PO SCH (11:06)
[2023-04-25] MEDS ORDERED: ALBUMIN 25% 100 ML IV ONE (14:00)
[2023-04-26] VITALS (17 sets, daily range): BP systolic 105–137; BP diastolic 43–59
[2023-04-26] MEDS: traMADol HCL 50 MG TAB PO PRN ×2 (04:52→14:56)
[2023-04-26 07:57] LABS: Basophils # (auto) 0 10 ^3/uL (0-0.2); Basophils % (auto) 0.1 % (0.0-2.0); Eosinophils # (auto) 0.1 10 ^3/uL (0-0.8)
[2023-04-26 08:00] LABS: Eosinophils % (auto) 0.7 % (0.0-7.0); Hematocrit 20.3 % (41.0-53.0); Lymphocytes # (auto) 0.7 10 ^3/uL (0.4-5.4); Lymphocytes % (auto) 5.9 % (10.0-50.0); Mean Corpuscular Hemoglobin 30.6 pg (28.0-32.0); Mean Corpuscular Hgb Conc. 34.6 g/dL (32.0-36.0); Mean Corpuscular Volume 88.4 fL (80.0-100.0); Monocytes # (auto) 1.4 10 ^3/uL (0-1.3); Monocytes % (auto) 11.2 % (0.0-12.0); Neutrophils # (auto) 10.3 10 ^3/uL (1.6-8.6); Neutrophils % (auto) 82.1 % (37.0-80.0); Red Blood Cells 2.29 10^6/uL (4.5-5.90); White Blood Cell 12.5 10^3/uL (4.4-10.8)
[2023-04-26 08:19] LABS: BUN/Creatinine Ratio 31.2 (10.0-20.0); Calcium 7.8 mg/dL (8.5-10.1); Potassium 5.2 mmol/L (3.5-5.1)
[2023-04-26] MEDS: SPIRONOLACTONE 25 MG TAB PO SCH (09:14)
[2023-04-26] MEDS: PANTOPRAZOLE 40 MG TAB PO SCH (09:14)
[2023-04-26] MEDS: cefTRIAXone 1GM/50ML D5W 50 ML IV SCH (09:14)
[2023-04-26] MEDS: rifAXIMin 550 MG TAB PO SCH ×2 (09:15→22:11)
[2023-04-26] MEDS: LACTULOSE 20Gm/30ML SOLN PO SCH ×2 (10:00→22:11)
[2023-04-27] VITALS (10 sets, daily range): BP systolic 101–144; BP diastolic 54–75
[2023-04-27] MEDS: traMADol HCL 50 MG TAB PO PRN ×3 (04:04→22:14)
[2023-04-27] MEDS: cefTRIAXone 1GM/50ML D5W 50 ML IV SCH (08:52)
[2023-04-27] MEDS: PANTOPRAZOLE 40 MG TAB PO SCH (09:51)
[2023-04-27] MEDS: rifAXIMin 550 MG TAB PO SCH ×2 (09:51→22:13)
[2023-04-27] MEDS: SPIRONOLACTONE 25 MG TAB PO SCH (09:52)
[2023-04-27] MEDS: LACTULOSE 20Gm/30ML SOLN PO SCH ×2 (09:52→22:00)
[2023-04-27 10:27] LABS: Basophils # (auto) 0 10 ^3/uL (0-0.2); Basophils % (auto) 0.2 % (0.0-2.0); Eosinophils # (auto) 0.2 10 ^3/uL (0-0.8); Neutrophils # (auto) 8.5 10 ^3/uL (1.6-8.6)
[2023-04-27 10:31] LABS: Eosinophils % (auto) 1.7 % (0.0-7.0); Hemoglobin 8.6 g/dL (13.5-17.5); Lymphocytes # (auto) 0.6 10 ^3/uL (0.4-5.4); Lymphocytes % (auto) 5.8 % (10.0-50.0); Mean Corpuscular Hemoglobin 30.9 pg (28.0-32.0); Mean Corpuscular Hgb Conc. 34.5 g/dL (32.0-36.0); Mean Corpuscular Volume 89.5 fL (80.0-100.0); Monocytes # (auto) 1.4 10 ^3/uL (0-1.3); Monocytes % (auto) 12.9 % (0.0-12.0); Neutrophils % (auto) 79.4 % (37.0-80.0); Red Cell Distribution Width 16.3 % (11.8-14.3); White Blood Cell 10.8 10^3/uL (4.4-10.8)
[2023-04-27 11:01] LABS: Calcium 7.8 mg/dL (8.5-10.1); Potassium 5.2 mmol/L (3.5-5.1)
[2023-04-28 05:00] VITALS: BP 120/59
[2023-04-28 07:52] LABS: Basophils # (auto) 0 10 ^3/uL (0-0.2); Basophils % (auto) 0.2 % (0.0-2.0); Eosinophils # (auto) 0.4 10 ^3/uL (0-0.8); Lymphocytes # (auto) 0.9 10 ^3/uL (0.4-5.4); Monocytes % (auto) 14.9 % (0.0-12.0); Neutrophils # (auto) 7.6 10 ^3/uL (1.6-8.6); Nucleated Red Blood Cells % 0.1 %
[2023-04-28 07:56] LABS: Eosinophils % (auto) 3.5 % (0.0-7.0); Hematocrit 25.2 % (41.0-53.0); Hemoglobin 8.7 g/dL (13.5-17.5); Lymphocytes % (auto) 8.5 % (10.0-50.0); Mean Corpuscular Hemoglobin 31.1 pg (28.0-32.0); Mean Corpuscular Hgb Conc. 34.5 g/dL (32.0-36.0); Mean Corpuscular Volume 90.3 fL (80.0-100.0); Monocytes # (auto) 1.5 10 ^3/uL (0-1.3); Neutrophils % (auto) 72.9 % (37.0-80.0); Red Blood Cells 2.79 10^6/uL (4.5-5.90); Red Cell Distribution Width 16.3 % (11.8-14.3); White Blood Cell 10.4 10^3/uL (4.4-10.8)
[2023-04-28 08:20] LABS: Calcium 8.1 mg/dL (8.5-10.1); Potassium 5.1 mmol/L (3.5-5.1)
[2023-04-28 08:23] LABS: BUN/Creatinine Ratio 36.7 (10.0-20.0)
[2023-04-28 09:00] VITALS: BP 110/60
[2023-04-28] MEDS: rifAXIMin 550 MG TAB PO SCH ×2 (09:39→21:40)
[2023-04-28] MEDS: SPIRONOLACTONE 25 MG TAB PO SCH (09:39)
[2023-04-28] MEDS: PANTOPRAZOLE 40 MG TAB PO SCH (09:39)
[2023-04-28] MEDS: cefTRIAXone 1GM/50ML D5W 50 ML IV SCH (09:39)
[2023-04-28] MEDS: LACTULOSE 20Gm/30ML SOLN PO SCH ×2 (09:40→21:41)
[2023-04-28 13:00] VITALS: BP 112/56
[2023-04-28 17:00] VITALS: BP 102/55
[2023-04-28 22:00] VITALS: BP 131/68
[2023-04-29 05:00] VITALS: BP 115/50
[2023-04-29] MEDS: cefTRIAXone 1GM/50ML D5W 50 ML IV SCH (08:30)
[2023-04-29] MEDS: traMADol HCL 50 MG TAB PO PRN (08:38)
[2023-04-29 09:00] VITALS: BP 122/54
[2023-04-29] MEDS: rifAXIMin 550 MG TAB PO SCH ×2 (09:43→21:34)
[2023-04-29] MEDS: SPIRONOLACTONE 25 MG TAB PO SCH (09:44)
[2023-04-29] MEDS: LACTULOSE 20Gm/30ML SOLN PO SCH ×2 (09:44→21:34)
[2023-04-29] MEDS: PANTOPRAZOLE 40 MG TAB PO SCH (09:44)
[2023-04-29 13:00] VITALS: BP 116/55
[2023-04-29 17:00] VITALS: BP 117/48
[2023-04-29 22:00] VITALS: BP 112/56
[2023-04-30 05:00] VITALS: BP 137/66
[2023-04-30] MEDS: PANTOPRAZOLE 40 MG TAB PO SCH (08:56)
[2023-04-30] MEDS: cefTRIAXone 1GM/50ML D5W 50 ML IV SCH (08:56)
[2023-04-30] MEDS: rifAXIMin 550 MG TAB PO SCH (08:56)
[2023-04-30] MEDS: SPIRONOLACTONE 25 MG TAB PO SCH (08:57)
[2023-04-30 09:00] VITALS: BP 111/57
[2023-04-30] MEDS: LACTULOSE 20Gm/30ML SOLN PO SCH (09:00)
[2023-04-30 09:36] LABS: INR 2.07 (0.9-1.15); Partial Thromboplastin Time 63.2 SEC (24.5-34.5)
[2023-04-30] MEDS ORDERED: PANT40TA2 PO (11:18)
[2023-04-30] MEDS ORDERED: RIFA550T PO (11:18)
[2023-04-30] MEDS ORDERED: LACT10SO3 PO (11:18)
[2023-04-30 13:00] VITALS: BP 112/55
== END 2023-04-30 15:40 | disposition home or self-care (01) | DRG 433 ==
LOC: EDBD 14:04 → ER 14:04 → OVERFLOW 20:27 → CENTRAL 04-24 10:04 → TELE-CENTR 04-25 15:14
PROVIDERS: ADMIT Nurse Practitioner; ATTEND Internal Medicine Pulmonary Disease
PROC: 0W9G3ZZ Drainage of Peritoneal Cavity, Percutaneous Approach (ICD-10-PCS; principal; 2023-04-24)
PROC: 30233N1 Transfusion of Nonautologous Red Blood Cells into Peripheral Vein, Percutaneous Approach (ICD-10-PCS; 2023-04-25)
PROC: 30233K1 Transfusion of Nonautologous Frozen Plasma into Peripheral Vein, Percutaneous Approach (ICD-10-PCS; 2023-04-26)
DX: K70.31 Alcoholic cirrhosis of liver with ascites (principal); D61.818 Other pancytopenia; D62 Acute posthemorrhagic anemia; D68.9 Coagulation defect, unspecified; E87.1 Hypo-osmolality and hyponatremia; Z68.43 Body mass index [BMI] 50.0-59.9, adult; E66.01 Morbid (severe) obesity due to excess calories; E87.5 Hyperkalemia; I10 Essential (primary) hypertension; Z63.4 Disappearance and death of family member; Z80.1 Family history of malignant neoplasm of trachea, bronchus and lung; Z82.49 Family history of ischemic heart disease and other diseases of the circulatory system; Z83.3 Family history of diabetes mellitus
CPT/HCPCS: 36415; 76705; 76942; 80048; 80053; 80307; 81001; 82140; 82270; 83690; 83735; 83986; 84484; 85007; 85025; 85027; 85610; 85730; 86850; 86900; 86901; 86920; 87081; 87086; 87205; 89051; 93005; 94640; G0378; J0696; J1815; J2405; P9047

== ENCOUNTER 2023-05-13 20:15 | Inpatient (IN) | payer BC, MEDICAID ==
[~2023-05-13] VITALS: Ht 182.9 cm; Wt 202.4 kg
[~2023-05-13 20:15] MED LIST changes: -CHOL1CAP47 PO; -CIPR-173 PO; -POTA8TAB15 PO; -TRAM-711 PO
[2023-05-13 21:06] LABS: Basophils # (auto) 0 10 ^3/uL (0-0.2); Basophils % (auto) 0.4 % (0.0-2.0); Eosinophils % (auto) 2.2 % (0.0-7.0); Hemoglobin 8.2 g/dL (13.5-17.5); Lymphocytes # (auto) 0.9 10 ^3/uL (0.4-5.4); Monocytes # (auto) 1.1 10 ^3/uL (0-1.3)
[2023-05-13 21:08] LABS: Eosinophils # (auto) 0.1 10 ^3/uL (0-0.8); Hematocrit 23.6 % (41.0-53.0); Lymphocytes % (auto) 13.9 % (10.0-50.0); Mean Corpuscular Hemoglobin 30.5 pg (28.0-32.0); Mean Corpuscular Hgb Conc. 34.6 g/dL (32.0-36.0); Monocytes % (auto) 17.2 % (0.0-12.0); Neutrophils # (auto) 4.4 10 ^3/uL (1.6-8.6); Neutrophils % (auto) 66.3 % (37.0-80.0); Red Blood Cells 2.68 10^6/uL (4.5-5.90); White Blood Cell 6.6 10^3/uL (4.4-10.8)
[2023-05-13 21:20] LABS: INR 1.71 (0.9-1.15); Partial Thromboplastin Time 49.8 SEC (24.5-34.5)
[2023-05-13 21:21] LABS: Calcium 8.5 mg/dL (8.5-10.1); Magnesium 2.9 mg/dL (1.6-2.6)
[2023-05-13 21:27] LABS: BUN/Creatinine Ratio 37.8 (10.0-20.0); Bilirubin, Total 9.1 mg/dL (0.2-1.0); Total Protein 6.1 g/dL (6.4-8.2)
[2023-05-13 21:47] LABS: Potassium 5.9 mmol/L (3.5-5.1)
[2023-05-13] MEDS ORDERED: FUROSEMIDE 100 MG/10ML VIAL IV ONE (22:00)
[2023-05-13] MEDS ORDERED: InsuLIN REG 1unit/0.01ml Soln (100units/ml) IV ONE (22:00)
[2023-05-13] MEDS ORDERED: CALCIUM GLUC 1,000mg/50ml-NS 50 ML IV ONE (22:00)
[2023-05-13] MEDS ORDERED: DEXTROSE (50%) 50ML SYRG IV ONE (22:00)
[2023-05-13 22:23] LABS: INR 1.66 (0.9-1.15); Partial Thromboplastin Time 46.9 SEC (24.5-34.5)
[2023-05-13] MEDS ORDERED: SODIUM BICARBONATE 8.4 % INJ 50ML VIAL IV ONE (23:15)
[2023-05-14] MEDS ORDERED: SODIUM CHLORIDE 1 GM TAB PO ONE (05:15)
[2023-05-14] MEDS ORDERED: ALBUMIN 25% 100 ML IV ONE (05:15)
[2023-05-14] MEDS ORDERED: MORPHINE SULFATE INJ 2 MG/ml SYRG IV PRN (05:30)
[2023-05-14] MEDS ORDERED: ONDANSETRON HCL 4 MG/2 ML VIAL IV PRN (05:30)
[2023-05-14] MEDS ORDERED: NITROGLYCERIN 0.4 MG SL TAB SL PRN (05:30)
[2023-05-14] MEDS: GABAPENTIN 300 MG CAP PO SCH ×3 (06:39→22:35)
[2023-05-14] MEDS: LACTULOSE 20Gm/30ML SOLN PO SCH ×3 (06:39→18:11)
[2023-05-14 07:36] LABS: Albumin 2.3 g/dL (3.4-5.0); Calcium 8.8 mg/dL (8.5-10.1)
[2023-05-14 07:47] LABS: Bilirubin, Total 10.9 mg/dL (0.2-1.0); Total Protein 6.1 g/dL (6.4-8.2)
[2023-05-14 07:55] LABS: BUN/Creatinine Ratio 40.1 (10.0-20.0); Potassium 6.2 mmol/L (3.5-5.1)
[2023-05-14] MEDS: PANTOPRAZOLE 40 MG TAB PO SCH (09:40)
[2023-05-14] MEDS: rifAXIMin 550 MG TAB PO SCH ×2 (09:40→22:36)
[2023-05-14] MEDS: FUROSEMIDE 40 MG TAB PO SCH (09:41)
[2023-05-14] MEDS ORDERED: SPIRONOLACTONE 25 MG TAB PO SCH (10:00)
[2023-05-14] MEDS ORDERED: SODIUM BICARBONATE 8.4% INJ 50ML SYRINGE IV ONE (12:15)
[2023-05-14] MEDS ORDERED: DEXTROSE (50%) 50ML SYRG IV ONE (12:15)
[2023-05-14] MEDS ORDERED: SODIUM ZIRCONIUM CYCL 10 GM PAK PO ONE (12:15)
[2023-05-14] MEDS ORDERED: FUROSEMIDE 20 MG/2 ML VIAL IV ONE (12:15)
[2023-05-14] MEDS ORDERED: InsuLIN REG 1unit/0.01ml Soln (100units/ml) IV ONE (12:15)
[2023-05-14] MEDS ORDERED: ALBUTEROL SULF 2.5 MG/0.5ML(0.5%) NEB SOLN NEB ONE (12:15)
[2023-05-14 14:49] LABS: BUN/Creatinine Ratio 38.6 (10.0-20.0); Calcium 8.8 mg/dL (8.5-10.1); Potassium 5.4 mmol/L (3.5-5.1)
[2023-05-15] MEDS: LACTULOSE 20Gm/30ML SOLN PO SCH ×5 (00:10→22:49)
[2023-05-15 05:42] LABS: Basophils # (auto) 0 10 ^3/uL (0-0.2); Basophils % (auto) 0.3 % (0.0-2.0); Eosinophils # (auto) 0.1 10 ^3/uL (0-0.8); Hematocrit 19.1 % (41.0-53.0); Mean Corpuscular Hgb Conc. 35.2 g/dL (32.0-36.0)
[2023-05-15 05:45] LABS: Eosinophils % (auto) 1.4 % (0.0-7.0); Lymphocytes # (auto) 0.9 10 ^3/uL (0.4-5.4); Lymphocytes % (auto) 12.3 % (10.0-50.0); Mean Corpuscular Hemoglobin 31.1 pg (28.0-32.0); Mean Corpuscular Volume 88.4 fL (80.0-100.0); Monocytes # (auto) 1.3 10 ^3/uL (0-1.3); Monocytes % (auto) 16.7 % (0.0-12.0); Neutrophils # (auto) 5.2 10 ^3/uL (1.6-8.6); Neutrophils % (auto) 69.3 % (37.0-80.0); Red Blood Cells 2.16 10^6/uL (4.5-5.90); Red Cell Distribution Width 18.1 % (11.8-14.3); White Blood Cell 7.5 10^3/uL (4.4-10.8)
[2023-05-15] MEDS: GABAPENTIN 300 MG CAP PO SCH ×3 (05:57→22:41)
[2023-05-15 05:58] LABS: BUN/Creatinine Ratio 39.6 (10.0-20.0); Calcium 8.6 mg/dL (8.5-10.1); Total Protein 5.4 g/dL (6.4-8.2)
[2023-05-15 06:03] LABS: Hemoglobin 6.7 g/dL (13.5-17.5)
[2023-05-15 06:23] LABS: Potassium 5.7 mmol/L (3.5-5.1)
[2023-05-15] MEDS ORDERED: SODIUM ZIRCONIUM CYCL 10 GM PAK PO ONE ×2 (06:45→10:30)
[2023-05-15 09:05] VITALS: BP 106/52
[2023-05-15 09:15] VITALS: BP 112/55
[2023-05-15 09:16] LABS: Urine Bacteria FEW /hpf (None Seen); Urine Blood 2+ /uL (Negative); Urine Budding Yeast FEW /hpf (None Seen); Urine Hyaline Cast MOD /lpf (0 - 2); Urine Mucus FEW (None Seen); Urine Specific Gravity 1.013 (1.001-1.035); Urine WBC 20 /hpf (0 - 3)
[2023-05-15 09:30] VITALS: BP 115/58
[2023-05-15] MEDS ORDERED: SODIUM BICARBONATE 8.4% INJ 50ML SYRINGE IV ONE (10:30)
[2023-05-15] MEDS ORDERED: InsuLIN REG 1unit/0.01ml Soln (100units/ml) IV ONE (10:30)
[2023-05-15] MEDS ORDERED: FUROSEMIDE 20 MG/2 ML VIAL IV ONE (10:30)
[2023-05-15] MEDS ORDERED: ALBUTEROL SULF 2.5 MG/0.5ML(0.5%) NEB SOLN NEB ONE (10:30)
[2023-05-15] MEDS ORDERED: DEXTROSE (50%) 50ML SYRG IV ONE (10:30)
[2023-05-15] MEDS: rifAXIMin 550 MG TAB PO SCH ×2 (10:31→22:41)
[2023-05-15] MEDS: cefTRIAXone 1GM/50ML D5W 50 ML IV SCH (10:31)
[2023-05-15] MEDS: PANTOPRAZOLE 40 MG TAB PO SCH (10:32)
[2023-05-15] MEDS: FUROSEMIDE 40 MG TAB PO SCH (10:32)
[2023-05-15 11:40] VITALS: BP 110/57
[2023-05-15 11:50] VITALS: BP 111/54
[2023-05-15 14:45] LABS: BUN/Creatinine Ratio 41.1 (10.0-20.0); Calcium 8.7 mg/dL (8.5-10.1); Potassium 5.3 mmol/L (3.5-5.1)
[2023-05-15] MEDS: ALBUMIN 25% 50 ML IV SCH ×2 (16:04→22:45)
[2023-05-16] VITALS (9 sets, daily range): BP systolic 88–113; BP diastolic 43–58
[2023-05-16] MEDS: LACTULOSE 20Gm/30ML SOLN PO SCH ×3 (06:16→17:49)
[2023-05-16] MEDS: GABAPENTIN 300 MG CAP PO SCH ×3 (06:16→21:17)
[2023-05-16] MEDS: ALBUMIN 25% 50 ML IV SCH (06:16)
[2023-05-16 08:52] LABS: Basophils # (auto) 0 10 ^3/uL (0-0.2); Eosinophils # (auto) 0.1 10 ^3/uL (0-0.8); Hemoglobin 7.5 g/dL (13.5-17.5)
[2023-05-16 08:53] LABS: Basophils % (auto) 0.2 % (0.0-2.0); Hematocrit 22.2 % (41.0-53.0); Lymphocytes # (auto) 0.6 10 ^3/uL (0.4-5.4); Lymphocytes % (auto) 7.5 % (10.0-50.0); Mean Corpuscular Hemoglobin 30.8 pg (28.0-32.0); Mean Corpuscular Hgb Conc. 33.9 g/dL (32.0-36.0); Mean Corpuscular Volume 90.9 fL (80.0-100.0); Monocytes # (auto) 0.9 10 ^3/uL (0-1.3); Monocytes % (auto) 10.7 % (0.0-12.0); Neutrophils % (auto) 80.6 % (37.0-80.0); Nucleated Red Blood Cells % 0.1 %; Red Blood Cells 2.44 10^6/uL (4.5-5.90); Red Cell Distribution Width 18.2 % (11.8-14.3); White Blood Cell 8.7 10^3/uL (4.4-10.8)
[2023-05-16 09:21] LABS: BUN/Creatinine Ratio 35.7 (10.0-20.0); Calcium 9.3 mg/dL (8.5-10.1)
[2023-05-16 09:27] LABS: Potassium 5.7 mmol/L (3.5-5.1)
[2023-05-16] MEDS: FUROSEMIDE 40 MG TAB PO SCH (09:32)
[2023-05-16] MEDS: cefTRIAXone 1GM/50ML D5W 50 ML IV SCH (09:32)
[2023-05-16] MEDS: PANTOPRAZOLE 40 MG TAB PO SCH (09:33)
[2023-05-16] MEDS: rifAXIMin 550 MG TAB PO SCH ×2 (09:49→21:17)
[2023-05-16] MEDS ORDERED: SODIUM ZIRCONIUM CYCL 10 GM PAK PO ONE (10:15)
[2023-05-16] MEDS ORDERED: SODIUM BICARBONATE 8.4% INJ 50ML SYRINGE IV ONE (10:15)
[2023-05-16] MEDS ORDERED: ALBUTEROL SULF 2.5 MG/0.5ML(0.5%) NEB SOLN NEB ONE (10:15)
[2023-05-16] MEDS ORDERED: FUROSEMIDE 20 MG/2 ML VIAL IV ONE (10:15)
[2023-05-16] MEDS ORDERED: ALBUMIN 25% 50 ML IV ONE (10:15)
[2023-05-16] MEDS ORDERED: InsuLIN REG 1unit/0.01ml Soln (100units/ml) IV ONE (10:15)
[2023-05-16] MEDS ORDERED: DEXTROSE (50%) 50ML SYRG IV ONE (10:15)
[2023-05-16 16:05] LABS: BUN/Creatinine Ratio 36.9 (10.0-20.0); Calcium 8.6 mg/dL (8.5-10.1); Potassium 4.8 mmol/L (3.5-5.1)
[2023-05-17] VITALS (13 sets, daily range): BP systolic 95–110; BP diastolic 38–60
[2023-05-17 05:18] LABS: Basophils # (auto) 0 10 ^3/uL (0-0.2); Eosinophils # (auto) 0.1 10 ^3/uL (0-0.8); Lymphocytes # (auto) 0.7 10 ^3/uL (0.4-5.4); Neutrophils # (auto) 5.2 10 ^3/uL (1.6-8.6); Red Cell Distribution Width 18.3 % (11.8-14.3); White Blood Cell 6.9 10^3/uL (4.4-10.8)
[2023-05-17 05:23] LABS: Basophils % (auto) 0.4 % (0.0-2.0); Eosinophils % (auto) 1.5 % (0.0-7.0); Hematocrit 19.7 % (41.0-53.0); Lymphocytes % (auto) 10.9 % (10.0-50.0); Mean Corpuscular Hgb Conc. 34.9 g/dL (32.0-36.0); Mean Corpuscular Volume 88.8 fL (80.0-100.0); Monocytes # (auto) 0.8 10 ^3/uL (0-1.3); Neutrophils % (auto) 75.2 % (37.0-80.0); Nucleated Red Blood Cells % 0.1 %; Red Blood Cells 2.22 10^6/uL (4.5-5.90)
[2023-05-17 05:42] LABS: BUN/Creatinine Ratio 37.8 (10.0-20.0); Calcium 8.2 mg/dL (8.5-10.1); Potassium 4.9 mmol/L (3.5-5.1)
[2023-05-17 05:51] LABS: Hemoglobin 6.9 g/dL (13.5-17.5)
[2023-05-17] MEDS: LACTULOSE 20Gm/30ML SOLN PO SCH ×4 (06:03→16:19)
[2023-05-17] MEDS: GABAPENTIN 300 MG CAP PO SCH ×3 (06:03→21:37)
[2023-05-17] MEDS: cefTRIAXone 1GM/50ML D5W 50 ML IV SCH (09:00)
[2023-05-17] MEDS: FUROSEMIDE 40 MG TAB PO SCH (09:37)
[2023-05-17] MEDS: rifAXIMin 550 MG TAB PO SCH ×2 (09:43→21:37)
[2023-05-17] MEDS: PANTOPRAZOLE 40 MG TAB PO SCH (09:43)
[2023-05-17 20:35] LABS: Hematocrit 21.9 % (41.0-53.0); Hemoglobin 7.3 g/dL (13.5-17.5)
[2023-05-18] VITALS (8 sets, daily range): BP systolic 95–146; BP diastolic 48–70
[2023-05-18] MEDS: LACTULOSE 20Gm/30ML SOLN PO SCH ×5 (00:49→22:55)
[2023-05-18] MEDS: GABAPENTIN 300 MG CAP PO SCH ×3 (05:55→22:54)
[2023-05-18 05:56] LABS: INR 2.07 (0.9-1.15); Partial Thromboplastin Time 64.5 SEC (24.5-34.5)
[2023-05-18 06:01] LABS: Basophils # (auto) 0 10 ^3/uL (0-0.2); Basophils % (auto) 0.4 % (0.0-2.0); Eosinophils # (auto) 0.1 10 ^3/uL (0-0.8); Hemoglobin 7.8 g/dL (13.5-17.5); Lymphocytes # (auto) 1.1 10 ^3/uL (0.4-5.4)
[2023-05-18 06:04] LABS: Eosinophils % (auto) 1.8 % (0.0-7.0); Hematocrit 22.2 % (41.0-53.0); Lymphocytes % (auto) 14.3 % (10.0-50.0); Mean Corpuscular Hemoglobin 31.3 pg (28.0-32.0); Mean Corpuscular Hgb Conc. 35.1 g/dL (32.0-36.0); Mean Corpuscular Volume 89.2 fL (80.0-100.0); Monocytes # (auto) 1.2 10 ^3/uL (0-1.3); Monocytes % (auto) 16.4 % (0.0-12.0); Neutrophils # (auto) 5.1 10 ^3/uL (1.6-8.6); Neutrophils % (auto) 67.1 % (37.0-80.0); Nucleated Red Blood Cells % 0.3 %; Red Blood Cells 2.49 10^6/uL (4.5-5.90); Red Cell Distribution Width 18.7 % (11.8-14.3); White Blood Cell 7.6 10^3/uL (4.4-10.8)
[2023-05-18 06:06] LABS: Potassium 5.1 mmol/L (3.5-5.1)
[2023-05-18 06:16] LABS: Bilirubin, Total 7.6 mg/dL (0.2-1.0); Calcium 8.6 mg/dL (8.5-10.1)
[2023-05-18] MEDS: cefTRIAXone 1GM/50ML D5W 50 ML IV SCH (08:58)
[2023-05-18] MEDS: FUROSEMIDE 40 MG TAB PO SCH (09:03)
[2023-05-18] MEDS: PANTOPRAZOLE 40 MG TAB PO SCH (09:03)
[2023-05-18] MEDS: rifAXIMin 550 MG TAB PO SCH ×2 (09:07→22:55)
[2023-05-18] MEDS ORDERED: PHYTONADIONE(VitK) ORAL Susp 5mg/5ml(1mg/ml) PO ONE (14:45)
[2023-05-19 05:00] VITALS: BP 109/54
[2023-05-19] MEDS: GABAPENTIN 300 MG CAP PO SCH ×3 (05:22→22:38)
[2023-05-19] MEDS: LACTULOSE 20Gm/30ML SOLN PO SCH ×4 (05:22→22:39)
[2023-05-19 08:40] VITALS: BP 111/56
[2023-05-19] MEDS: PANTOPRAZOLE 40 MG TAB PO SCH (09:00)
[2023-05-19] MEDS: rifAXIMin 550 MG TAB PO SCH ×2 (09:00→22:38)
[2023-05-19] MEDS: cefTRIAXone 1GM/50ML D5W 50 ML IV SCH (09:00)
[2023-05-19] MEDS: FUROSEMIDE 40 MG TAB PO SCH (09:01)
[2023-05-19 12:52] VITALS: BP 103/58
[2023-05-19 16:40] VITALS: BP 106/46
[2023-05-19 20:00] VITALS: BP 111/56
[2023-05-19 22:00] VITALS: BP 114/42
[2023-05-20 05:00] VITALS: BP 93/44
[2023-05-20] MEDS: GABAPENTIN 300 MG CAP PO SCH ×2 (06:17→13:11)
[2023-05-20] MEDS: LACTULOSE 20Gm/30ML SOLN PO SCH ×3 (06:17→17:07)
[2023-05-20 08:00] VITALS: BP 106/50
[2023-05-20 09:12] VITALS: BP 106/50
[2023-05-20] MEDS: FUROSEMIDE 40 MG TAB PO SCH (10:50)
[2023-05-20] MEDS: PANTOPRAZOLE 40 MG TAB PO SCH (10:50)
[2023-05-20] MEDS: rifAXIMin 550 MG TAB PO SCH (10:50)
[2023-05-20] MEDS: cefTRIAXone 1GM/50ML D5W 50 ML IV SCH (10:52)
[2023-05-20 15:05] VITALS: BP 93/46
[2023-05-20 15:27] VITALS: BP 91/49
== END 2023-05-20 20:44 | disposition home or self-care (01) | DRG 441 ==
LOC: ER 20:15 → EDBD 20:15 → TELE 05-14 05:25 → TELE-EAST 05-15 22:01
PROVIDERS: ADMIT Internal Medicine Pulmonary Disease; ATTEND Student in an Organized Health Care Education/Training Program
PROC: 0W9G30Z Drainage of Peritoneal Cavity with Drainage Device, Percutaneous Approach (ICD-10-PCS; principal; 2023-05-15)
PROC: 30233N1 Transfusion of Nonautologous Red Blood Cells into Peripheral Vein, Percutaneous Approach (ICD-10-PCS; 2023-05-15)
PROC: 05HF33Z Insertion of Infusion Device into Left Cephalic Vein, Percutaneous Approach (ICD-10-PCS; 2023-05-15)
PROC: B54NZZA Ultrasonography of Left Upper Extremity Veins, Guidance (ICD-10-PCS; 2023-05-15)
PROC: 30233K1 Transfusion of Nonautologous Frozen Plasma into Peripheral Vein, Percutaneous Approach (ICD-10-PCS; 2023-05-16)
DX: K76.82 Hepatic encephalopathy (principal); K76.7 Hepatorenal syndrome; D61.818 Other pancytopenia; D68.9 Coagulation defect, unspecified; E87.1 Hypo-osmolality and hyponatremia; N17.9 Acute kidney failure, unspecified; N39.0 Urinary tract infection, site not specified; E72.20 Disorder of urea cycle metabolism, unspecified; R18.8 Other ascites; Z68.44 Body mass index [BMI] 60.0-69.9, adult; K74.60 Unspecified cirrhosis of liver; E66.01 Morbid (severe) obesity due to excess calories; E83.41 Hypermagnesemia; E87.5 Hyperkalemia; R14.0 Abdominal distension (gaseous); D64.9 Anemia, unspecified; E87.8 Other disorders of electrolyte and fluid balance, not elsewhere classified; I10 Essential (primary) hypertension; Z83.3 Family history of diabetes mellitus; Z63.4 Disappearance and death of family member; Z80.1 Family history of malignant neoplasm of trachea, bronchus and lung; Z82.49 Family history of ischemic heart disease and other diseases of the circulatory system
CPT/HCPCS: 36415; 36600; 71045; 76604; 76705; 76942; 80048; 80053; 81001; 82140; 82270; 82805; 82962; 83690; 83735; 83880; 83930; 83986; 84484; 85014; 85018; 85025; 85610; 85730; 86850; 86900; 86901; 86920; 87086; 87088; 87186; 87205; 89051; 93005; 94640; 96365; 96375; 99291; G0378; J0696; J1815; J2405; P9047

== ENCOUNTER 2023-05-24 09:01 | Inpatient (IN) | payer MEDICAID ==
[~2023-05-24] VITALS: Ht 177.8 cm; Wt 203.0 kg
[2023-05-24 12:18] LABS: Basophils # (auto) 0 10 ^3/uL (0-0.2); Eosinophils # (auto) 0.2 10 ^3/uL (0-0.8); Hemoglobin 7.9 g/dL (13.5-17.5); Lymphocytes # (auto) 0.6 10 ^3/uL (0.4-5.4); Monocytes # (auto) 1.2 10 ^3/uL (0-1.3); Neutrophils # (auto) 5.7 10 ^3/uL (1.6-8.6); Nucleated Red Blood Cells % 0.1 %; White Blood Cell 7.7 10^3/uL (4.4-10.8)
[2023-05-24 12:19] LABS: Basophils % (auto) 0.3 % (0.0-2.0); Eosinophils % (auto) 2.5 % (0.0-7.0); Hematocrit 22.9 % (41.0-53.0); Lymphocytes % (auto) 7.6 % (10.0-50.0); Mean Corpuscular Hemoglobin 30.6 pg (28.0-32.0); Mean Corpuscular Hgb Conc. 34.4 g/dL (32.0-36.0); Monocytes % (auto) 15.5 % (0.0-12.0); Neutrophils % (auto) 74.1 % (37.0-80.0); Red Blood Cells 2.57 10^6/uL (4.5-5.90)
[2023-05-24 12:22] LABS: Albumin 1.8 g/dL (3.4-5.0); Calcium 7.9 mg/dL (8.5-10.1)
[2023-05-24 12:24] LABS: Red Cell Distribution Width 20.1 % (11.8-14.3)
[2023-05-24 12:27] LABS: BUN/Creatinine Ratio 30.9 (10.0-20.0); Bilirubin, Total 7.3 mg/dL (0.2-1.0); Total Protein 5.2 g/dL (6.4-8.2)
[2023-05-24] MEDS ORDERED: SODIUM CHLORIDE 0.9% 500 ML IV ONE (13:45)
[2023-05-24] MEDS ORDERED: LACTULOSE 20Gm/30ML SOLN PO ONE (13:45)
[2023-05-24 14:40] VITALS: PULSE 63; RESP 10; O2SAT 97
[2023-05-24] MEDS ORDERED: NITROGLYCERIN 0.4 MG SL TAB SL PRN (14:45)
[2023-05-24] MEDS ORDERED: ONDANSETRON HCL 4 MG/2 ML VIAL IV PRN (14:45)
[2023-05-24] MEDS ORDERED: MORPHINE SULFATE INJ 2 MG/ml SYRG IV PRN (14:45)
[2023-05-24] MEDS ORDERED: FUROSEMIDE 20 MG/2 ML VIAL IV ONE (15:15)
[2023-05-24] MEDS ORDERED: ALBUMIN 25% 100 ML IV ONE (15:15)
[2023-05-24 15:23] LABS: Cholesterol < 50 mg/dL (< 200)
[2023-05-24 15:24] LABS: INR 1.73 (0.9-1.15); Partial Thromboplastin Time 60.9 SEC (24.5-34.5)
[2023-05-24 15:25] LABS: HDL Cholesterol 13 mg/dL (40-59); LDL Cholesterol 32 mg/dL (< 100); Triglycerides 34 mg/dL (< 150)
[2023-05-24] MEDS ORDERED: SODIUM CHLORIDE 1 GM TAB PO ONE (15:30)
[2023-05-24 15:56] LABS: % Iron Saturation 89.1 % (20-55)
[2023-05-24] MEDS ORDERED: ALBUMIN 25% 100 ML IV SCH (16:00)
[2023-05-24 16:02] LABS: Urine Bacteria FEW /hpf (None Seen); Urine Blood Negative /uL (Negative); Urine Hyaline Cast MANY /lpf (0 - 2); Urine Mucus FEW (None Seen); Urine Specific Gravity 1.014 (1.001-1.035); Urine WBC 44 /hpf (0 - 3)
[2023-05-24 16:20] LABS: Alcohol, Urine < 3.0 mg/dL (0-10); Amphetamine Screen, Urine NEGATIVE (NEGATIVE); Barbiturate Scree,Urine NEGATIVE (NEGATIVE); Benzodiazephine Screen, Urine NEGATIVE (NEGATIVE); Cannabinoid Screen, Urine NEGATIVE (NEGATIVE); Cocaine Screen, Urine NEGATIVE (NEGATIVE); Opiate Scree,Urine NEGATIVE (NEGATIVE); Phencyclidine Screen, Urine NEGATIVE (NEGATIVE)
[2023-05-24 16:22] LABS: Folate (Folic Acid) 5.97 ng/mL (5.38-24)
[2023-05-24] MEDS: FUROSEMIDE INJECTION 100 MG in SODIUM CHL 0.9% 100 ML IV SCH (16:38)
[2023-05-24 18:07] LABS: Anion Gap 12 (5-15); BUN/Creatinine Ratio 28.9 (10.0-20.0); Blood Urea Nitrogen 66 mg/dL (7-18); Calcium 7.6 mg/dL (8.5-10.1); Carbon Dioxide 20 mmol/L (21-32); Chloride 90 mmol/L (98-107); GFR African American 40 mL/min; GFR Non-African American 33 mL/min; Glucose 140 mg/dL (74-106); Potassium 4.9 mmol/L (3.5-5.1); Sodium 122 mmol/L (136-145)
[2023-05-24] MEDS: MIDODRINE HCL 10 MG TAB PO SCH (18:16)
[2023-05-24 20:00] VITALS: PULSE 71; RESP 24; O2SAT 98
[2023-05-25] MEDS: FUROSEMIDE INJECTION 100 MG in SODIUM CHL 0.9% 100 ML IV SCH ×3 (02:39→18:34)
[2023-05-25] MEDS: ALBUMIN 25% 100 ML IV SCH ×4 (02:41→13:54)
[2023-05-25] MEDS: GABAPENTIN 300 MG CAP PO SCH ×3 (02:41→13:11)
[2023-05-25] MEDS: OCTREOTIDE ACETATE 100 MCG/ML VL SUBCUT SCH ×3 (02:42→18:35)
[2023-05-25] MEDS: ASCORBIC ACID 500 MG TAB PO SCH ×2 (02:42→12:36)
[2023-05-25] MEDS: SODIUM CHLORIDE 1 GM TAB PO SCH ×3 (03:01→13:10)
[2023-05-25 06:21] LABS: Basophils # (auto) 0 10 ^3/uL (0-0.2); Basophils % (auto) 0.4 % (0.0-2.0); Eosinophils # (auto) 0.2 10 ^3/uL (0-0.8); Eosinophils % (auto) 2.6 % (0.0-7.0); Hematocrit 24.9 % (41.0-53.0); Hemoglobin 8.5 g/dL (13.5-17.5); Lymphocytes # (auto) 0.6 10 ^3/uL (0.4-5.4); Mean Corpuscular Hgb Conc. 34.1 g/dL (32.0-36.0); Mean Corpuscular Volume 90.9 fL (80.0-100.0); Monocytes # (auto) 0.7 10 ^3/uL (0-1.3); Monocytes % (auto) 11.5 % (0.0-12.0); Neutrophils # (auto) 4.7 10 ^3/uL (1.6-8.6); Neutrophils % (auto) 76.5 % (37.0-80.0); Nucleated Red Blood Cells % 0.1 %; Red Blood Cells 2.73 10^6/uL (4.5-5.90); White Blood Cell 6.1 10^3/uL (4.4-10.8)
[2023-05-25 06:23] VITALS: PULSE 71; RESP 24; O2SAT 98
[2023-05-25 06:35] LABS: Potassium 4.9 mmol/L (3.5-5.1)
[2023-05-25 06:43] LABS: Albumin 2.3 g/dL (3.4-5.0); BUN/Creatinine Ratio 32.4 (10.0-20.0); Bilirubin, Total 10.2 mg/dL (0.2-1.0); Calcium 8.4 mg/dL (8.5-10.1); Total Protein 5.8 g/dL (6.4-8.2)
[2023-05-25 07:03] LABS: Red Cell Distribution Width 20.2 % (11.8-14.3)
[2023-05-25] MEDS: MIDODRINE HCL 10 MG TAB PO SCH ×3 (07:06→18:34)
[2023-05-25 08:00] VITALS: PULSE 66; RESP 18; O2SAT 99
[2023-05-25] MEDS ORDERED: FUROSEMIDE 20 MG/2 ML VIAL IV SCH (10:00)
[2023-05-25] MEDS ORDERED: LACTULOSE 20Gm/30ML SOLN PO SCH (10:00)
[2023-05-25] MEDS: MULTIPLE VITAMIN TAB PO SCH (12:36)
[2023-05-25] MEDS: PANTOPRAZOLE 40 MG TAB PO SCH (12:37)
[2023-05-25] MEDS: metOLazone 5 MG TAB PO SCH (12:42)
[2023-05-25] MEDS: ZINC SULFATE 220mg CAP or TAB PO SCH (13:09)
[2023-05-25 20:00] VITALS: PULSE 59; RESP 10; O2SAT 98
[2023-05-26] MEDS: GABAPENTIN 300 MG CAP PO SCH ×4 (00:02→22:51)
[2023-05-26] MEDS: ASCORBIC ACID 500 MG TAB PO SCH ×3 (00:02→22:00)
[2023-05-26] MEDS: LACTULOSE 20Gm/30ML SOLN PO SCH ×4 (00:03→22:50)
[2023-05-26] MEDS: SODIUM CHLORIDE 1 GM TAB PO SCH ×2 (00:03→06:16)
[2023-05-26] MEDS: OCTREOTIDE ACETATE 100 MCG/ML VL SUBCUT SCH ×4 (00:04→22:37)
[2023-05-26] MEDS: MIDODRINE HCL 10 MG TAB PO SCH ×3 (06:15→18:04)
[2023-05-26] MEDS ORDERED: FUROSEMIDE INJECTION 10 ML ONE (06:31)
[2023-05-26] MEDS: FUROSEMIDE INJECTION 100 MG in SODIUM CHL 0.9% 100 ML IV SCH ×2 (06:32→14:41)
[2023-05-26 06:59] LABS: Potassium 5.3 mmol/L (3.5-5.1)
[2023-05-26 07:04] LABS: BUN/Creatinine Ratio 38.5 (10.0-20.0); Calcium 8.1 mg/dL (8.5-10.1)
[2023-05-26 08:00] VITALS: PULSE 70; RESP 10; O2SAT 95
[2023-05-26] MEDS: PANTOPRAZOLE 40 MG TAB PO SCH (09:45)
[2023-05-26] MEDS: ZINC SULFATE 220mg CAP or TAB PO SCH (09:45)
[2023-05-26] MEDS: MULTIPLE VITAMIN TAB PO SCH (09:45)
[2023-05-26] MEDS: metOLazone 5 MG TAB PO SCH (09:45)
[2023-05-26] MEDS ORDERED: CALCIUM GLUC 1,000mg/50ml-NS 50 ML IV ONE (10:00)
[2023-05-26] MEDS ORDERED: DEXTROSE (50%) 50ML SYRG IV ONE (10:00)
[2023-05-26] MEDS ORDERED: ALBUTEROL SULF 2.5 MG/0.5ML(0.5%) NEB SOLN NEB ONE (10:00)
[2023-05-26] MEDS ORDERED: SODIUM BICARBONATE 8.4 % INJ 50ML VIAL IV ONE (10:00)
[2023-05-26] MEDS ORDERED: InsuLIN REG 1unit/0.01ml Soln (100units/ml) IV ONE (10:00)
[2023-05-26 20:00] VITALS: PULSE 69; RESP 10; O2SAT 95
[2023-05-27] VITALS (58 sets, daily range): BP systolic 84–124; BP diastolic 32–67; PULSE 57–101; RESP 8–18; TEMP 36.8; O2SAT 91–99
[2023-05-27] MEDS: FUROSEMIDE INJECTION 100 MG in SODIUM CHL 0.9% 100 ML IV SCH ×3 (01:39→23:00)
[2023-05-27 05:52] LABS: BUN/Creatinine Ratio 39.9 (10.0-20.0); Potassium 5.3 mmol/L (3.5-5.1)
[2023-05-27] MEDS ORDERED: LACTULOSE 20Gm/30ML SOLN NG SCH (06:00)
[2023-05-27] MEDS: MIDODRINE HCL 10 MG TAB PO SCH ×3 (08:27→17:19)
[2023-05-27] MEDS: GABAPENTIN 300 MG CAP PO SCH ×3 (08:27→21:32)
[2023-05-27] MEDS: ZINC SULFATE 220mg CAP or TAB PO SCH (08:51)
[2023-05-27] MEDS: MULTIPLE VITAMIN TAB PO SCH (08:51)
[2023-05-27 08:52] LABS: Basophils # (auto) 0 10 ^3/uL (0-0.2); Eosinophils # (auto) 0.1 10 ^3/uL (0-0.8); Lymphocytes # (auto) 0.7 10 ^3/uL (0.4-5.4); Mean Corpuscular Hemoglobin 30.6 pg (28.0-32.0); Mean Corpuscular Hgb Conc. 34.5 g/dL (32.0-36.0); Neutrophils % (auto) 70.8 % (37.0-80.0); Red Cell Distribution Width 19.5 % (11.8-14.3)
[2023-05-27] MEDS: PANTOPRAZOLE 40 MG TAB PO SCH (08:52)
[2023-05-27] MEDS: ASCORBIC ACID 500 MG TAB PO SCH ×2 (08:52→21:32)
[2023-05-27 08:53] LABS: Basophils % (auto) 0.6 % (0.0-2.0); Eosinophils % (auto) 1.1 % (0.0-7.0); Hemoglobin 7.2 g/dL (13.5-17.5); Lymphocytes % (auto) 11.9 % (10.0-50.0); Mean Corpuscular Volume 88.7 fL (80.0-100.0); Monocytes % (auto) 15.6 % (0.0-12.0); Neutrophils # (auto) 4.4 10 ^3/uL (1.6-8.6); Nucleated Red Blood Cells % 0.2 %; Red Blood Cells 2.36 10^6/uL (4.5-5.90); White Blood Cell 6.3 10^3/uL (4.4-10.8)
[2023-05-27] MEDS: OCTREOTIDE ACETATE 100 MCG/ML VL SUBCUT SCH ×3 (09:01→21:29)
[2023-05-27 09:06] LABS: INR 1.92 (0.9-1.15); Partial Thromboplastin Time 64.9 SEC (24.5-34.5)
[2023-05-27] MEDS ORDERED: NOREPINEPHRINE 8 MG/250ML KIT 250 ML IV ONE (11:19)
[2023-05-27] MEDS: NOREPINEPHRINE 8 MG/250ML KIT 250 ML IV SCH (11:27)
[2023-05-27] MEDS: LACTULOSE 20Gm/30ML SOLN PR SCH ×4 (13:01→21:28)
[2023-05-28] VITALS (92 sets, daily range): BP systolic 83–119; BP diastolic 22–79; PULSE 61–103; RESP 7–18; TEMP 97.5–98.4; O2SAT 59–99
[2023-05-28] MEDS: LACTULOSE 20Gm/30ML SOLN PR SCH ×4 (01:06→14:35)
[2023-05-28] MEDS: NOREPINEPHRINE 8 MG/250ML KIT 250 ML IV SCH ×2 (01:23→21:58)
[2023-05-28 03:51] LABS: Basophils # (auto) 0 10 ^3/uL (0-0.2); Basophils % (auto) 0.2 % (0.0-2.0); Eosinophils # (auto) 0.1 10 ^3/uL (0-0.8); Hematocrit 24.9 % (41.0-53.0); Hemoglobin 8.6 g/dL (13.5-17.5); Lymphocytes # (auto) 1.1 10 ^3/uL (0.4-5.4); Lymphocytes % (auto) 9.5 % (10.0-50.0); Mean Corpuscular Hemoglobin 30.5 pg (28.0-32.0); Mean Corpuscular Hgb Conc. 34.6 g/dL (32.0-36.0); Mean Corpuscular Volume 88.1 fL (80.0-100.0); Monocytes # (auto) 1.6 10 ^3/uL (0-1.3); Monocytes % (auto) 14.6 % (0.0-12.0); Neutrophils # (auto) 8.3 10 ^3/uL (1.6-8.6); Neutrophils % (auto) 74.7 % (37.0-80.0); Nucleated Red Blood Cells % 0.1 %; Red Blood Cells 2.83 10^6/uL (4.5-5.90); Red Cell Distribution Width 18.5 % (11.8-14.3); White Blood Cell 11.2 10^3/uL (4.4-10.8)
[2023-05-28 04:26] LABS: Potassium 5.1 mmol/L (3.5-5.1)
[2023-05-28 04:27] LABS: Albumin 2.3 g/dL (3.4-5.0); Bilirubin, Total 15.4 mg/dL (0.2-1.0); Calcium 8.8 mg/dL (8.5-10.1); Total Protein 5.6 g/dL (6.4-8.2)
[2023-05-28] MEDS: GABAPENTIN 300 MG CAP PO SCH ×3 (05:27→21:58)
[2023-05-28] MEDS: MIDODRINE HCL 10 MG TAB PO SCH ×3 (05:27→18:00)
[2023-05-28] MEDS: OCTREOTIDE ACETATE 100 MCG/ML VL SUBCUT SCH ×3 (05:27→21:58)
[2023-05-28] MEDS: ASCORBIC ACID 500 MG TAB PO SCH ×3 (10:08→22:00)
[2023-05-28] MEDS: PANTOPRAZOLE 40 MG TAB PO SCH (10:08)
[2023-05-28] MEDS: rifAXIMin 550 MG TAB PO SCH ×3 (10:08→22:00)
[2023-05-28] MEDS: MULTIPLE VITAMIN TAB PO SCH (10:08)
[2023-05-28] MEDS: ZINC SULFATE 220mg CAP or TAB PO SCH (10:08)
[2023-05-28] MEDS: LACTULOSE 20Gm/30ML SOLN PO SCH (21:58)
[2023-05-29] VITALS (94 sets, daily range): BP systolic 85–150; BP diastolic 31–105; PULSE 55–83; RESP 8–15; TEMP 97.4–97.9; O2SAT 90–100
[2023-05-29 04:24] LABS: BUN/Creatinine Ratio 44.8 (10.0-20.0); Potassium 4.5 mmol/L (3.5-5.1)
[2023-05-29 04:28] LABS: Basophils # (auto) 0 10 ^3/uL (0-0.2); Basophils % (auto) 0.5 % (0.0-2.0); Eosinophils # (auto) 0.2 10 ^3/uL (0-0.8); Hemoglobin 7.6 g/dL (13.5-17.5)
[2023-05-29 04:29] LABS: Eosinophils % (auto) 2.7 % (0.0-7.0); Hematocrit 21.6 % (41.0-53.0); Lymphocytes # (auto) 0.9 10 ^3/uL (0.4-5.4); Lymphocytes % (auto) 12.8 % (10.0-50.0); Mean Corpuscular Hemoglobin 30.7 pg (28.0-32.0); Mean Corpuscular Volume 87.7 fL (80.0-100.0); Monocytes % (auto) 14.9 % (0.0-12.0); Neutrophils # (auto) 4.7 10 ^3/uL (1.6-8.6); Neutrophils % (auto) 69.1 % (37.0-80.0); Nucleated Red Blood Cells % 0.2 %; Red Blood Cells 2.47 10^6/uL (4.5-5.90); Red Cell Distribution Width 18.7 % (11.8-14.3); White Blood Cell 6.8 10^3/uL (4.4-10.8)
[2023-05-29] MEDS: LACTULOSE 20Gm/30ML SOLN PO SCH ×3 (05:55→21:15)
[2023-05-29] MEDS: OCTREOTIDE ACETATE 100 MCG/ML VL SUBCUT SCH ×3 (05:55→22:41)
[2023-05-29] MEDS: GABAPENTIN 300 MG CAP PO SCH ×3 (05:55→21:15)
[2023-05-29] MEDS: MIDODRINE HCL 10 MG TAB PO SCH ×3 (06:00→18:00)
[2023-05-29] MEDS: FUROSEMIDE 100 MG/10ML VIAL IV SCH (09:57)
[2023-05-29] MEDS: MULTIPLE VITAMIN TAB PO SCH (10:00)
[2023-05-29] MEDS: PANTOPRAZOLE 40 MG TAB PO SCH (10:00)
[2023-05-29] MEDS: ASCORBIC ACID 500 MG TAB PO SCH ×2 (10:00→21:15)
[2023-05-29] MEDS: rifAXIMin 550 MG TAB PO SCH ×2 (10:00→21:15)
[2023-05-29] MEDS: ZINC SULFATE 220mg CAP or TAB PO SCH (10:00)
[2023-05-29] MEDS ORDERED: CLINIMIX PER PHARMACY 0 ML IV SCH (11:15)
[2023-05-29 11:56] LABS: Albumin 2.2 g/dL (3.4-5.0); Magnesium 2.5 mg/dL (1.6-2.6); Phosphorus 3.9 mg/dL (2.5-4.90)
[2023-05-29] MEDS: ALBUMIN 25% 100 ML IV SCH ×2 (12:23→20:42)
[2023-05-29] MEDS: LACTULOSE 10g/15ml SOLN 473ML PR SCH ×2 (12:24→18:29)
[2023-05-29] MEDS ORDERED: DEXTROSE (50%) 50ML SYRG IV SCH (13:00)
[2023-05-29] MEDS: ACCU-CHEK COMFORT CURVE STRIP VI SCH (18:49)
[2023-05-29] MEDS: InsuLIN REG 1unit/0.01ml Soln (100units/ml) SC SCH (18:54)
[2023-05-29] MEDS: AMINO ACID INFUSION IN D10W 1,000 ML IV SCH (20:00)
[2023-05-30] VITALS (87 sets, daily range): BP systolic 84–120; BP diastolic 41–70; PULSE 60–84; RESP 9–16; TEMP 97.4–99.4; O2SAT 91–100
[2023-05-30] MEDS: ACCU-CHEK COMFORT CURVE STRIP VI SCH ×4 (00:03→17:50)
[2023-05-30] MEDS: InsuLIN REG 1unit/0.01ml Soln (100units/ml) SC SCH ×4 (00:04→18:07)
[2023-05-30] MEDS: ALBUMIN 25% 100 ML IV SCH (01:26)
[2023-05-30 04:44] LABS: BUN/Creatinine Ratio 47.4 (10.0-20.0); Calcium 9.3 mg/dL (8.5-10.1); Potassium 4.4 mmol/L (3.5-5.1)
[2023-05-30] MEDS: NOREPINEPHRINE 8 MG/250ML KIT 250 ML IV SCH (04:45)
[2023-05-30] MEDS: LACTULOSE 20Gm/30ML SOLN PO SCH ×3 (05:20→20:29)
[2023-05-30] MEDS: LACTULOSE 10g/15ml SOLN 473ML PR SCH ×4 (05:21→18:42)
[2023-05-30] MEDS: GABAPENTIN 300 MG CAP PO SCH ×3 (05:21→20:29)
[2023-05-30] MEDS: MIDODRINE HCL 10 MG TAB PO SCH ×3 (05:21→14:23)
[2023-05-30] MEDS: OCTREOTIDE ACETATE 100 MCG/ML VL SUBCUT SCH ×3 (05:49→22:03)
[2023-05-30] MEDS: rifAXIMin 550 MG TAB PO SCH ×2 (10:00→20:30)
[2023-05-30] MEDS: PANTOPRAZOLE 40 MG TAB PO SCH (10:00)
[2023-05-30] MEDS: ASCORBIC ACID 500 MG TAB PO SCH ×2 (10:00→20:30)
[2023-05-30] MEDS: MULTIPLE VITAMIN TAB PO SCH (10:00)
[2023-05-30] MEDS: ZINC SULFATE 220mg CAP or TAB PO SCH (10:00)
[2023-05-30] MEDS: FUROSEMIDE 100 MG/10ML VIAL IV SCH (10:13)
[2023-05-30 11:06] LABS: Magnesium 2.2 mg/dL (1.6-2.6); Phosphorus 3.7 mg/dL (2.5-4.90)
[2023-05-30 15:32] LABS: Albumin 2.7 g/dL (3.4-5.0); Albumin 2.8 g/dL (3.4-5.0); Bilirubin, Direct 5.9 mg/dL (0-0.2); Calcium 9.3 mg/dL (8.5-10.1); Potassium 4.1 mmol/L (3.5-5.1)
[2023-05-30 15:35] LABS: Bilirubin, Total 14.8 mg/dL (0.2-1.0); Total Protein 5.4 g/dL (6.4-8.2)
[2023-05-30 15:36] LABS: BUN/Creatinine Ratio 43.8 (10.0-20.0); Total Protein 5.4 g/dL (6.4-8.2)
[2023-05-30] MEDS: AMINO ACID INFUSION IN D10W 1,000 ML IV SCH (20:04)
[2023-05-31] VITALS (84 sets, daily range): BP systolic 90–110; BP diastolic 44–58; PULSE 69–89; RESP 9–36; TEMP 97.9–98.4; O2SAT 92–100
[2023-05-31] MEDS: InsuLIN REG 1unit/0.01ml Soln (100units/ml) SC SCH ×5 (00:33→23:47)
[2023-05-31] MEDS: ACCU-CHEK COMFORT CURVE STRIP VI SCH ×5 (00:33→23:48)
[2023-05-31] MEDS: LACTULOSE 10g/15ml SOLN 473ML PR SCH ×5 (00:49→23:49)
[2023-05-31 05:18] LABS: Albumin 2.4 g/dL (3.4-5.0); Magnesium 2.1 mg/dL (1.6-2.6)
[2023-05-31] MEDS: GABAPENTIN 300 MG CAP PO SCH ×3 (05:19→21:49)
[2023-05-31] MEDS: LACTULOSE 20Gm/30ML SOLN PO SCH ×3 (05:19→21:49)
[2023-05-31] MEDS: MIDODRINE HCL 10 MG TAB PO SCH ×3 (05:19→14:16)
[2023-05-31] MEDS: OCTREOTIDE ACETATE 100 MCG/ML VL SUBCUT SCH ×3 (05:19→21:48)
[2023-05-31 05:22] LABS: BUN/Creatinine Ratio 44.2 (10.0-20.0); Bilirubin, Total 13.2 mg/dL (0.2-1.0); Phosphorus 3.2 mg/dL (2.5-4.90); Total Protein 5.1 g/dL (6.4-8.2)
[2023-05-31] MEDS: MULTIPLE VITAMIN TAB PO SCH (07:44)
[2023-05-31] MEDS: ZINC SULFATE 220mg CAP or TAB PO SCH (07:44)
[2023-05-31] MEDS: PANTOPRAZOLE 40 MG TAB PO SCH (07:44)
[2023-05-31] MEDS: ASCORBIC ACID 500 MG TAB PO SCH ×2 (07:44→21:49)
[2023-05-31] MEDS: rifAXIMin 550 MG TAB PO SCH ×2 (07:44→21:49)
[2023-05-31] MEDS: NOREPINEPHRINE 8 MG/250ML KIT 250 ML IV SCH (07:46)
[2023-05-31 08:13] LABS: Basophils # (auto) 0 10 ^3/uL (0-0.2); Eosinophils # (auto) 0.1 10 ^3/uL (0-0.8); Mean Corpuscular Volume 91.4 fL (80.0-100.0); Monocytes # (auto) 0.7 10 ^3/uL (0-1.3)
[2023-05-31 08:15] LABS: Basophils % (auto) 0.7 % (0.0-2.0); Eosinophils % (auto) 3.4 % (0.0-7.0); Hematocrit 20.4 % (41.0-53.0); Lymphocytes # (auto) 0.6 10 ^3/uL (0.4-5.4); Lymphocytes % (auto) 15.3 % (10.0-50.0); Mean Corpuscular Hemoglobin 31.2 pg (28.0-32.0); Mean Corpuscular Hgb Conc. 34.1 g/dL (32.0-36.0); Monocytes % (auto) 15.9 % (0.0-12.0); Neutrophils # (auto) 2.7 10 ^3/uL (1.6-8.6); Neutrophils % (auto) 64.7 % (37.0-80.0); Nucleated Red Blood Cells % 0.5 %; Red Blood Cells 2.23 10^6/uL (4.5-5.90); Red Cell Distribution Width 19.5 % (11.8-14.3); White Blood Cell 4.1 10^3/uL (4.4-10.8)
[2023-05-31] MEDS: FUROSEMIDE 100 MG/10ML VIAL IV SCH (08:39)
[2023-05-31 12:57] LABS: Hepatitis A Ab IgM Negative; Hepatitis B Core IgM Negative; Hepatitis C Antibody Negative (Negative)
[2023-05-31] MEDS ORDERED: AMINO ACID INFUSION IN D10W 1,000 ML IV NR (20:00)
[2023-06-01] VITALS (21 sets, daily range): BP systolic 97–111; BP diastolic 49–65; PULSE 65–80; RESP 10–16; TEMP 97.8–99.2; O2SAT 94–100
[2023-06-01 05:18] LABS: Basophils # (auto) 0 10 ^3/uL (0-0.2); Hemoglobin 7.4 g/dL (13.5-17.5); Red Cell Distribution Width 19.4 % (11.8-14.3)
[2023-06-01 05:28] LABS: Basophils % (auto) 0.9 % (0.0-2.0); Eosinophils # (auto) 0.1 10 ^3/uL (0-0.8); Hematocrit 21.6 % (41.0-53.0); Lymphocytes # (auto) 0.7 10 ^3/uL (0.4-5.4); Lymphocytes % (auto) 16.2 % (10.0-50.0); Mean Corpuscular Hemoglobin 31.8 pg (28.0-32.0); Mean Corpuscular Volume 93.3 fL (80.0-100.0); Monocytes # (auto) 0.6 10 ^3/uL (0-1.3); Monocytes % (auto) 14.4 % (0.0-12.0); Neutrophils # (auto) 2.6 10 ^3/uL (1.6-8.6); Neutrophils % (auto) 65.5 % (37.0-80.0); Nucleated Red Blood Cells % 0.8 %; Red Blood Cells 2.32 10^6/uL (4.5-5.90)
[2023-06-01 05:36] LABS: Albumin 2.3 g/dL (3.4-5.0); BUN/Creatinine Ratio 42.1 (10.0-20.0); Calcium 8.6 mg/dL (8.5-10.1); Magnesium 1.9 mg/dL (1.6-2.6); Potassium 3.8 mmol/L (3.5-5.1)
[2023-06-01] MEDS: LACTULOSE 20Gm/30ML SOLN PO SCH ×2 (06:00→08:20)
[2023-06-01] MEDS: LACTULOSE 10g/15ml SOLN 473ML PR SCH ×3 (06:00→18:00)
[2023-06-01] MEDS: MIDODRINE HCL 10 MG TAB PO SCH ×3 (06:00→18:00)
[2023-06-01] MEDS: GABAPENTIN 300 MG CAP PO SCH ×2 (06:00→14:11)
[2023-06-01] MEDS: ACCU-CHEK COMFORT CURVE STRIP VI SCH ×3 (06:49→18:07)
[2023-06-01] MEDS: InsuLIN REG 1unit/0.01ml Soln (100units/ml) SC SCH ×3 (06:52→18:08)
[2023-06-01] MEDS: OCTREOTIDE ACETATE 100 MCG/ML VL SUBCUT SCH ×2 (06:54→14:11)
[2023-06-01] MEDS: NOREPINEPHRINE 8 MG/250ML KIT 250 ML IV SCH (07:04)
[2023-06-01] MEDS: ASCORBIC ACID 500 MG TAB PO SCH (08:21)
[2023-06-01] MEDS: PANTOPRAZOLE 40 MG TAB PO SCH (08:22)
[2023-06-01] MEDS: ZINC SULFATE 220mg CAP or TAB PO SCH (08:22)
[2023-06-01] MEDS: rifAXIMin 550 MG TAB PO SCH (08:22)
[2023-06-01] MEDS: MULTIPLE VITAMIN TAB PO SCH (08:22)
[2023-06-01] MEDS ORDERED: FUROSEMIDE 100 MG/10ML VIAL IV SCH (10:00)
[2023-06-01] MEDS ORDERED: AMINO ACID INFUSION IN D10W 1,000 ML IV NR (20:00)
== END 2023-06-01 19:30 | disposition short-term general hospital (02) | DRG 280 ==
LOC: ER 09:01 → EDBD 09:01 → TELE 14:41 → TELE-CENTR 05-25 23:50 → TELE 05-25 23:56 → ICU WEST 05-27 09:42 → DOU IN ICU 05-30 15:45 → ICU CENTRL 05-31 00:40 → DOU IN ICU 05-31 18:23
PROVIDERS: ADMIT Family Medicine; ATTEND Family Medicine
PROC: 0W9G3ZZ Drainage of Peritoneal Cavity, Percutaneous Approach (ICD-10-PCS; principal; 2023-05-25)
PROC: 30233N1 Transfusion of Nonautologous Red Blood Cells into Peripheral Vein, Percutaneous Approach (ICD-10-PCS; 2023-05-27)
PROC: 02HV33Z Insertion of Infusion Device into Superior Vena Cava, Percutaneous Approach (ICD-10-PCS; 2023-05-27)
DX: K76.82 Hepatic encephalopathy (principal); K70.31 Alcoholic cirrhosis of liver with ascites; K76.7 Hepatorenal syndrome; E43 Unspecified severe protein-calorie malnutrition; D68.9 Coagulation defect, unspecified; E72.20 Disorder of urea cycle metabolism, unspecified; R64 Cachexia; E87.1 Hypo-osmolality and hyponatremia; D63.8 Anemia in other chronic diseases classified elsewhere; D69.6 Thrombocytopenia, unspecified; K76.6 Portal hypertension; S81.811A Laceration without foreign body, right lower leg, initial encounter; E88.09 Other disorders of plasma-protein metabolism, not elsewhere classified; N17.9 Acute kidney failure, unspecified; E80.6 Other disorders of bilirubin metabolism; I10 Essential (primary) hypertension; I25.10 Atherosclerotic heart disease of native coronary artery without angina pectoris; W18.39XA Other fall on same level, initial encounter; E87.5 Hyperkalemia; E66.01 Morbid (severe) obesity due to excess calories; Z68.42 Body mass index [BMI] 45.0-49.9, adult; Z83.3 Family history of diabetes mellitus; Z82.49 Family history of ischemic heart disease and other diseases of the circulatory system; Z80.1 Family history of malignant neoplasm of trachea, bronchus and lung; Z63.4 Disappearance and death of family member; Y93.89 Activity, other specified; Y92.89 Other specified places as the place of occurrence of the external cause; Y99.8 Other external cause status
CPT/HCPCS: 12004; 36415; 36600; 70450; 71045; 76705; 76942; 80048; 80053; 80061; 80069; 80074; 80076; 80307; 81001; 82040; 82140; 82607; 82746; 82805; 82962; 83036; 83540; 83550; 83605; 83735; 83880; 83930; 83935; 83986; 84100; 84300; 84443; 84484; 85025; 85610; 85730; 86850; 86900; 86901; 86920; 87040; 87081; 87086; 87088; 87186; 87205; 87426; 89051; 92507; 96365; 96366; 96367; 96375; 97110; 97163; 99291; G0378; J1815; P9047